=== PATIENT | female | born 1990 | race Caucasian/White ===

== ENCOUNTER 2018-01-29 16:19 | Outpatient (CLI) | payer MEDICARE, MEDICAID, SELFPAY ==
[2018-01-29 17:09] LABS: Abs Immature Grans 0.01 k/cumm (0.0-0.09); Absolute Basophil Count 0.05 k/cumm (0.0-0.2); Absolute Eosinophil Count 0.09 k/cumm (0.0-0.7); Absolute Lymphocyte Count 2.56 k/cumm (1.2-3.4); Absolute Monocyte Count 0.53 k/cumm (0.11-0.7); Absolute Neutrophil Count 3.92 k/cumm (1.2-6.7); Basophils % 0.7; Eosinophils % 1.3; HCT 42.1 % (36.0-46.0); HGB 14.5 g/dL (12.0-15.5); Immature Grans % 0.1; Lymphocytes % 35.8; Mean Corp. HGB Concentration 34.4 g/dL (32.0-36.0); Mean Corpuscular Hemoglobin 30.4 pg (27.0-33.0); Mean Corpuscular Volume 88.3 fL (80-95); Monocytes % 7.4; Neutrophils % 54.7; Platelet Count 424 x1000/uL (130-400); RBC 4.77 m/cumm (4.00-5.20); White Blood Cell Count 7.16 k/cumm (4.4-10.8)
[2018-01-29 17:50] LABS: Bilirubin Negative (Negative); Blood Negative (Negative); Clarity Clear; Glucose Negative (Negative); Ketones Trace mg/dL (Negative); Leukocyte Esterase Small (Negative); Nitrite Negative (Negative); Specific Gravity 1.025 (1.005-1.025); pH 6.5 (5-8)
[2018-01-29 18:11] LABS: Bacteria Moderate HPF (Negative); C & S Indicated? No/Sq. Contamination; Casts Negative LPF (Negative); Crystals Negative HPF (Negative); Epithelial Cells Moderate HPF (Negative); Mucus Moderate (Negative); RBC Negative (0-2)
[2018-01-29 18:19] LABS: ALT 16 U/L (12-78); AST 9 U/L (15-37); Albumin 3.4 g/dL (3.4-5.0); Alkaline Phosphatase 95 U/L (46-116); Anion Gap 9.6 mmol/L (3-11); BUN 7 mg/dL (7-18); Bilirubin, Total 0.2 mg/dL (0.2-1.0); CO2 25.4 mmol/L (21.0-32.0); CREATININE 0.68 mg/dL (0.55-1.02); Calcium 9.1 mg/dL (8.5-10.1); Chloride 102 mmol/L (98-107); Glucose 73 mg/dL (70-100); Sodium 137 mmol/L (136-145); Total Protein 6.8 g/dL (6.4-8.2)
[2018-01-29 18:45] LABS: Hemoglobin A1C 5.1 % (4.5-6.2)
== END 2018-01-29 16:39 ==
PROVIDERS: PCP Family Medicine; Visit Provider Internal Medicine Critical Care Medicine
DX: R63.4 Abnormal weight loss (principal); R73.03 Prediabetes
CPT/HCPCS: 36415; 80053; 81003; 81015; 83036; 85025

== ENCOUNTER 2018-02-10 06:51 | Emergency (ER) | payer MEDICARE, MEDICAID, SELFPAY ==
[2018-02-10 06:59] VITALS: BP 122/74; PULSE 125; RESP 18; TEMP 37; O2SAT 100
--- NOTE | 2018-02-10 07:15 | ED.GENADUL_ITS ---
Discharge Plan Disposition Patient Disposition: HOME Condition: Stable Discharge Details Chief Complaint: GenMedical Clinical Impression: Asthma, Influenza Primary Care Provider: Go Donahue ED Provider: Jairo Petersen Home Meds and New Rx's Prescriptions: New oseltamivir [Tamiflu] 75 mg capsule 75 mg PO BID 4 Days Qty: 8 RF: 0 levofloxacin [Levaquin] 500 mg tablet 500 mg PO DAILY Qty: 7 RF: 0 Continued cholecalciferol (vitamin D3) 1,000 unit tablet 1,000 unit PO DAILY Qty: 90 RF: 3 omeprazole 20 mg capsule,delayed release(DR/EC) 20 mg PO DAILY Qty: 90 RF: 3 promethazine 25 mg tablet 25 mg PO Q6H PRN (Reason: nausea and vomiting) Qty: 15 RF: 1 albuterol sulfate 3 ML solution for nebulization 3 ml UPD Q2H PRN PRNQty: 90 RF: 2 lidocaine 1 EACH adhesive patch,medicated 1 ea Topical DAILY RF: 0 Combivent Respimat 4 GM mist 2 puff Inhalation PRN RF: 0 Spiriva Respimat 4 GM mist 2 puff Inhalation Q12H PRN RF: 0 levalbuterol tartrate [Xopenex HFA] 15 GM HFA aerosol inhaler 2 - 4 puff Inhalation Q6H PRN Qty: 1 RF: 5 montelukast [Singulair] 10 MG tablet 10 mg PO DAILY Qty: 90 RF: 4 fluticasone 16 GM spray,suspension 1 spray NS BID Qty: 1 RF: 11 Nucala 100 MG recon soln 1 syringe SQ 28 days RF: 0 fluvoxamine 100 MG tablet 150 mg PO DAILY Qty: 135 RF: 3 Symbicort 10.2 GM HFA aerosol inhaler 2 puff Inhalation BID Qty: 3 RF: 4 Zyrtec 10 MG capsule 10 mg PO DAILY Qty: 90 RF: 4 ipratropium-albuterol [DuoNeb] 0.5 mg-3 mg(2.5 mg base)/3 mL solution for nebulization 3 ml Inhalation Q6H PRN Qty: 180 RF: 3 gabapentin 300 mg capsule 300 mg PO TID Qty: 90 RF: 5 zolpidem [Ambien] 10 mg tablet 10 mg PO HS PRN (Reason: insomnia) Qty: 30 RF: 2 buprenorphine-naloxone 1 EACH tablet, sublingual 12 mg Sublingual DAILY Qty: 0 RF: 0 acetaminophen [Tylenol] 325 MG tablet 650 mg PO Q4H PRN PRN (Reason: Pain, fever) RF: 0 prednisone 20 MG tablet 20 mg PO BID Qty: 60 RF: 0 Discontinued ciprofloxacin HCl 500 mg tablet 500 mg PO Q12H Qty: 14 RF: 0 Discharge Instructions Instructions: Influenza (ED) Additional Instructions: Home to rest today. Tylenol and/or ibuprofen as needed for aches, pains, fever. Continue your prescribed prednisone, prescribed inhalers, please complete the prescribed course of Tamiflu. Take Levaquin as prescribed, next dose tomorrow Return for difficulty breathing or any other acute concerns. Follow-up with Dr Donahue in clinic for recheck call for an appointment over the next 5-7 days. Discharge Data Discharge Date/Time-TO BE ENTERED AT DEPARTURE: 02/10/18 10:02 Medical Decision Making <Angelo Joseph MD - Last Filed: 02/10/18 23:11> 27 yo female with hx of asthma, prior drug abuse on suboxone and clearn for 6 years per pt, who comes in with chief complaint of n/v for 3 days, fevers and myalgias. Has coarse breath sounds on exam bilaterally but is speaking in full sentences. Has no abdominal distention or tenderness on exam. I suspect viral illness, will hydrate and check for electrolyte abnormalities and obtain chest xray since she states she surya a cough to eval for infiltrate. Will give neb and steroids as well for her coarse breath sounds. I placed an u/s guided IV in the left mid upper arm as nursing unable to place a line. Pt will be signed out to Dr. Petersen pending lab and xray results and ultimate disposition Differential Diagnosis asthma exacerbation, viral illness, influenza <Jairo Petersen MD - Last Filed: 02/10/18 10:45> Received signout from Dr. Joseph. Please see his note regarding details of the case. Patient was positive for influenza. Chest x-ray w question RML infiltrate. Tolerated Levaquin in the past, does not tolerate other antibiotics well. She is improved following medical therapy. CBC reassuring, comprehensive panel hemolyzed and patient declined repeat draw. She will continue prescribed steroids for bronchospasm. Tamiflu initiated. She understands homecare as well as return precautions. HPI <Angelo Joseph MD - Last Filed: 02/10/18 23:11> General Mode of arrival: ambulatory . Date/Time Provider Initiated Documentation: 02/10/18 06:54 . Limitations to Documentation: no limitations . Information obtained by: patient . History of Present Illness 27 year old F presents to the emergency department with the chief complaint of nausea and vomit, described as moderate, with intensity rated at 4. Patient reports no radiation. Patient started experiencing this day(s) (3) and it has been constant. No relieving factors improve symptom(s), No exacerbating factors reported . Patient did receive the following treatments prior to arrival, none Related Data Home Medications Medication Instructions Recorded Confirmed albuterol sulfate 3 ml UPD Q2H PRN PRN #90 vial 10/27/13 01/23/18 buprenorphine-naloxone 12 mg SUBLINGUAL DAILY #0 12/02/13 01/23/18 lidocaine 1 ea TOPICAL DAILY patch 12/07/15 01/23/18 Combivent Respimat 2 puff INHALATION PRN inhaler 06/20/16 01/23/18 Spiriva Respimat 2 puff INHALATION Q12H PRN 06/20/16 01/23/18 levalbuterol tartrate [Xopenex HFA] 2 - 4 puff INHALATION Q6H PRN #1 09/02/16 01/23/18 inhaler montelukast [Singulair] 10 mg PO DAILY #90 tab-cap 10/02/16 01/23/18 fluticasone 1 spray NS BID #1 bottle 11/01/16 01/23/18 acetaminophen [Tylenol] 650 mg PO Q4H PRN PRN tab 12/20/16 01/23/18 Nucala 1 syringe SQ 28 days vial 03/19/17 01/23/18 Symbicort 2 puff INHALATION BID #3 inhaler 03/19/17 01/23/18 fluvoxamine 150 mg PO DAILY #135 tab-cap 03/19/17 01/23/18 prednisone 20 mg PO BID #60 tab 05/10/17 01/23/18 Zyrtec 10 mg PO DAILY #90 cap 09/30/17 01/23/18 ipratropium-albuterol 0.5 mg-3 3 ml INHALATION Q6H PRN #180 ml 10/23/17 01/23/18 mg(2.5 mg base)/3 mL nebulization soln gabapentin 300 mg capsule 300 mg PO TID #90 tab-cap 01/06/18 01/23/18 zolpidem 10 mg tablet 10 mg PO HS PRN #30 tab-cap 01/12/18 01/23/18 cholecalciferol (vitamin D3) 1,000 1,000 unit PO DAILY #90 tab-cap 01/23/18 01/23/18 unit tablet omeprazole 20 mg capsule,delayed 20 mg PO DAILY #90 tab-cap 01/23/18 01/23/18 release promethazine 25 mg tablet 25 mg PO Q6H PRN #15 tab 01/23/18 01/23/18 levofloxacin [Levaquin] 500 mg PO DAILY #7 tab 02/10/18 oseltamivir [Tamiflu] 75 mg PO BID 4 Days #8 cap 02/10/18 Previous Rx's Medication Instructions Recorded buprenorphine-naloxone 12 mg SUBLINGUAL DAILY #0 12/02/13 fluticasone 1 spray NS BID #1 bottle 11/01/16 acetaminophen [Tylenol] 650 mg PO Q4H PRN PRN tab 12/20/16 Symbicort 2 puff INHALATION BID #3 inhaler 03/19/17 fluvoxamine 150 mg PO DAILY #135 tab-cap 03/19/17 prednisone 20 mg PO BID #60 tab 05/10/17 Zyrtec 10 mg PO DAILY #90 cap 09/30/17 ipratropium-albuterol 0.5 mg-3 3 ml INHALATION Q6H PRN #180 ml 10/23/17 mg(2.5 mg base)/3 mL nebulization soln gabapentin 300 mg capsule 300 mg PO TID #90 tab-cap 01/06/18 zolpidem 10 mg tablet 10 mg PO HS PRN #30 tab-cap 01/12/18 cholecalciferol (vitamin D3) 1,000 1,000 unit PO DAILY #90 tab-cap 01/23/18 unit tablet omeprazole 20 mg capsule,delayed 20 mg PO DAILY #90 tab-cap 01/23/18 release promethazine 25 mg tablet 25 mg PO Q6H PRN #15 tab 01/23/18 levofloxacin [Levaquin] 500 mg PO DAILY #7 tab 02/10/18 oseltamivir [Tamiflu] 75 mg PO BID 4 Days #8 cap 02/10/18 Allergies Allergy/AdvReac Type Severity Reaction Status Date / Time ibuprofen [From Advil] Allergy Mild ADVIL ONLY Verified 01/23/18 11:14 SKIN RASH amoxicillin Allergy Verified 01/23/18 11:14 diphenhydramine Allergy Hives Verified 01/23/18 11:14 erythromycin base Allergy SKIN RASH Verified 01/23/18 11:14 metronidazole [From Flagyl] Allergy SKIN RASH Verified 01/23/18 11:14 Metronidazole HCl Allergy SKIN RASH Verified 01/23/18 11:14 [From Flagyl] penicillin V [Penicillin V] Allergy Verified 01/23/18 11:14 Sulfa (Sulfonamide Allergy Hives Verified 01/23/18 11:14 Antibiotics) General Stated Complaint: GenMedical BART: 3 Review of Systems <Angelo Joseph MD - Last Filed: 02/10/18 23:11> Review of Systems All systems reviewed & are unremarkable except as noted in HPI and below Constitutional Denies chills Eyes Denies loss of vision ENT Denies change in voice Cardiovascular Denies chest pain Gastrointestinal Denies nausea and Denies vomiting Genitourinary Denies dysuria Musculoskeletal Denies joint swelling Neurologic Denies loss of vision Endocrine Denies cold intolerance PFSH <Angelo Joseph MD - Last Filed: 02/10/18 23:11> Surgical History Endometrial Biopsy Family History Father Hyperlipidemia Social History Smoking/Tobacco Use Status: Former Tobacco Use Exam <Angelo Joseph MD - Last Filed: 02/10/18 23:11> Const General: no acute distress Orientation: alert HENCA Head: normal to inspection Ears: external ears normal General nose exam: external nose normal Mouth: moist mucous membranes Eyes General: appearance normal, both eyes and all related structures Neck Neck: normal visual inspection Resp Effort & Inspection: normal respiratory effort and able to speak in complete se ntences Cardio Rate: regular rate Skin General skin exam: no rashes or lesions noted Neuro General: alert and oriented x3 Extrem General: normal to inspection Psych Mental Status: mental status grossly normal Course <Angelo Joseph MD - Last Filed: 02/10/18 23:11> Vital Signs Temperature 37.0 C 02/10/18 06:59 Pulse 125 H 02/10/18 06:59 Respiratory Rate 18 02/10/18 06:59 Blood Pressure 122/74 02/10/18 06:59 Pulse Oximetry 100 02/10/18 06:59 Temperature 37.0 C 02/10/18 06:59 Temperature Source Oral 02/10/18 06:59 Pulse 125 H 02/10/18 06:59 Respiratory Rate 18 02/10/18 06:59 Respiratory Effort 02/10/18 07:02 Blood Pressure 122/74 02/10/18 06:59 Blood Pressure Position Sitting 02/10/18 06:59 Pulse Oximetry 100 02/10/18 06:59 Oxygen Delivery Method Room Air 02/10/18 06:59 Oxygen Flow Rate 0 02/10/18 06:59 Pain Level 7 02/10/18 06:59 Sign Out <Angelo Joseph MD - Last Filed: 02/10/18 23:11> Sign Out Data: Sign Out Comment: follow up on lab and xray results, and reassess lung exam. Last updated by Angelo Joseph MD at 02/10/18 07:42
[2018-02-10] MEDS: Albuterol/Ipratropium 3 ML UPD VIAL UPD (07:18)
[2018-02-10 07:30] VITALS: RESP 16
--- NOTE | 2018-02-10 07:46 | NUR.NOTE ---
Nursing Note: This RN attempted IV access X1, unsuccessfully. MD Joseph at bedside, pt. can be heard yelling and swearing at doctor, Don't fucking do that, you're hurting me, I told you not to do that
[2018-02-10] MEDS: Normal Saline 1,000 ML 1000 ML IV (07:50)
[2018-02-10] MEDS: Ondansetron 4 MG/2 ML VIAL IM (07:50)
[2018-02-10] MEDS: methylPREDNISolone SUCC 125 MG VIAL IVP (07:50)
[2018-02-10 08:03] LABS: Abs Immature Grans 0.01 k/cumm (0.0-0.09); Absolute Basophil Count 0.02 k/cumm (0.0-0.2); Absolute Lymphocyte Count 0.81 k/cumm (1.2-3.4); Absolute Neutrophil Count 4.49 k/cumm (1.2-6.7); Basophils % 0.3; HCT 45.3 % (36.0-46.0); HGB 15.9 g/dL (12.0-15.5); Immature Grans % 0.2; Lymphocytes % 13.7; Mean Corp. HGB Concentration 35.1 g/dL (32.0-36.0); Mean Corpuscular Hemoglobin 30.9 pg (27.0-33.0); Mean Platelet Volume 9.7 fL (8.0-11.0); Monocytes % 10.1; Neutrophils % 75.7; Platelet Count 259 x1000/uL (130-400); RBC 5.15 m/cumm (4.00-5.20); RBC Distribution Width 14.1 % (11.7-14.6); White Blood Cell Count 5.93 k/cumm (4.4-10.8)
[2018-02-10] MEDS: Oseltamivir 75 MG CAP PO ×2 (08:16→09:19)
--- NOTE | 2018-02-10 08:25 | DI.RAD_ITS ---
SYMPTOM/DIAGNOSIS: COUGH PA AND LATERAL CHEST: Comparison is made with 05/08/17. The heart size is normal. There are streaky densities again seen in the region of the right middle lobe and lingula which do not appear significantly changed from 06/21/16. IMPRESSION: Probable right middle lobe and lingular scarring.
--- NOTE | 2018-02-10 09:21 | DI.VRAD_ITS ---
EXAM: XR Chest, 2 Views EXAM DATE/TIME: 02/10/2018 8:18 AM CLINICAL HISTORY: 27 years old, female; Signs and symptoms; Cough; Patient HX: Cough. Pos flu TECHNIQUE: XR of the chest, 2 views. COMPARISON: CR PORTABLE CHEST ONE VIEW 05/08/2017 7:14 AM FINDINGS: 2 views of the right chest demonstrate increased opacity in the right middle lobe distribution concerning for pneumonia. Cardiac silhouette nonenlarged. No pneumothorax. Bowel gas pattern unremarkable. Bones unremarkable. IMPRESSION: Findings concerning for right middle lobe pneumonia. Dictated and Authenticated by: Gerardo Hermosillo MD. Ordering:RENEE Stephens MD
[2018-02-10 10:17] VITALS: BP 120/76; PULSE 104; RESP 18; TEMP 37.4; O2SAT 99
== END 2018-02-10 10:02 | disposition home or self-care (01) ==
PROVIDERS: Emergency Medicine; Emergency Provider Emergency Medicine; PCP Family Medicine
DX: J10.2 Influenza due to other identified influenza virus with gastrointestinal manifestations (principal); J45.909 Unspecified asthma, uncomplicated; F11.20 Opioid dependence, uncomplicated
CPT/HCPCS: 36415; 80053; 80076; 81025; 83690; 87449; 94640; 96361; 96372; 96374; 99284; 71046; 84484; 85025; J2405; J2930; J7620

== ENCOUNTER 2018-04-03 13:11 | Outpatient (REF) | payer MEDICARE, MEDICAID, SELFPAY | END 2018-04-03 13:31 | LOC: LBN 13:11 | PROVIDERS: PCP Family Medicine; Visit Provider Family Medicine | DX: R10.30 Lower abdominal pain, unspecified (principal) | CPT/HCPCS: 87086 ==

== ENCOUNTER 2018-04-08 00:22 | Outpatient (CLI) | payer MEDICARE, MEDICAID, SELFPAY ==
[2018-04-08 08:33] LABS: Bilirubin Negative (Negative); Blood Negative (Negative); Clarity Clear; Glucose Negative (Negative); Ketones Negative (Negative); Leukocyte Esterase Small (Negative); Nitrite Negative (Negative); Specific Gravity 1.015 (1.005-1.025); Urobilinogen 0.2 EU/dL (Up TO 0.2)
[2018-04-08] MEDS: Breeza Beverage 473 ML BTL PO ×3 (08:36→08:38)
[2018-04-08] MEDS: Omnipaque 350 MG/ML 50 ML BTL IJ (08:37)
[2018-04-08 09:29] LABS: Bacteria Few HPF (Negative); C & S Indicated? Yes; Casts Negative LPF (Negative); Crystals Negative HPF (Negative); Epithelial Cells Few HPF (Negative); Mucus Trace (Negative); RBC Negative (0-2); WBC 0-2 HPF (0-5)
--- NOTE | 2018-04-08 09:58 | DI.CT_ITS ---
SYMPTOM/DIAGNOSIS: LLQ LOW ABD PAIN ABDOMEN AND PELVIC CT: CT scan of the abdomen and pelvis was performed following the uneventful administration of intravenous and oral contrast material. Findings: There is an single intrauterine present. The fetus appears to be somewhere between the second and third trimester. The placenta appears anterior and to the right. The liver is normal in size. No suspicious hepatic masses are seen. The portal, superior mesenteric and splenic veins are patent. The gallbladder is negative. No biliary ductal dilatation is seen. The pancreas, spleen and adrenal glands are unremarkable. The kidneys show normal and symmetric enhancement. No evidence of obstruction is seen. The urinary bladder is intact. The bowel shows no evidence of obstruction or inflammation. There is a normal appendix present. No significant abdominal or pelvic adenopathy, ascites or pneumoperitoneum is present. The left ovary appears grossly unremarkable. The right ovary is not well visualized. The aorta is of normal caliber. The lumbar spine is normally mineralized and intact. IMPRESSION: 1. Rojas intrauterine gestation. The fetus appears to be in the second to third trimester. The patient was told of the on the date of the examination and was unaware. The findings were called to Leah Kee at [facility] on the date of the examination. 2. No evidence of an acute abdomen. 3. OB ultrasound should be considered for and placental evaluation.
== END 2018-04-08 00:42 ==
PROVIDERS: PCP Family Medicine; Visit Provider Family Medicine
DX: R10.32 Left lower quadrant pain (principal); Z33.1 Pregnant state, incidental
CPT/HCPCS: 74177; 81003; 81015; 87086; Q9967

== ENCOUNTER 2018-04-13 01:28 | Outpatient (CLI) | payer MEDICARE, MEDICAID, SELFPAY ==
--- NOTE | 2018-04-13 11:24 | DI.US_ITS ---
Many abnormalities cannot be diagnosed. A normal exam does not exclude a congenital anomaly. Radiology No. LMP: ? Exam Date: 04/13/18 [facility] wks days on EDC ([facility]) UNKNOWN Confirmed: HISTORY: SURVEY,Z34.90 PREDICTED GESTATIONAL AGE NUMBER ? weeks with a range of week to weeks. 1 Determined by___1STUS___LMP___HISTORY Info. pertaining to fetus # PLACENTA PRESENTATION Grade I Cephalic___X Anterior_X__Posterior___ Breech____ Right Left Transverse(head right___ Fundal___Low-lying___Previa___ Transverse(head left___ Varying BIOMETRY AMNIOTIC FLUID BPD: 42 mm 18.4 weeks Normal HC: 158 mm 18.5 weeks AC: 129 mm 18.3 weeks FL: 27 mm 18.3 weeks AMNIOTIC FLUID INDEX >26 WK CRL: mm weeks Cisterna Magna: 3.6 mm CI: 77 RUQ: LUQ Cerebellum: 1.86 cm EFW: grams Percentile RLQ: LLQ Total: cms Composite AGE= 18.4 wks EDC by US____09/10/2018 BIOPHYSICAL PROFILE ANATOMY IDENTIFIED SCORE 0/2 Heart: 4-Chamber_X__Rate:BPM__160___ LVOT: X____ RVOT:___X Amniotic Fluid(>2cms)____ Stomach: X__ Kidneys:___X____ Respirations (>30 secs) Bladder: X__ Post. Fossa:____X Body Flex/Extension 3 vessel cord:___X____Ventricles:____X cord insertion:___X__ Lips:___X_ Extremity Flex/Extension spinal morphology:___X Nose:X Total Score= Palate:___X____ NS=not seen The fetus is in cephalic position. The placenta is anterior and is 2.1 cm. from the maternal os. The biometric measurements correspond to 18 weeks 4 days and an EDC of 09/10/18. The amniotic fluid appears visually normal. There is a question of a sandal gap deformity on the right foot on image #85. This was not reproducible later on in the exam and could have represented transient finding. A sandal gap deformity of the foot could be associated with down's syndrome or could be a normal variant. No additional abnormalities are seen. IMPRESSION: Gestational age of 18 weeks 4 days. Question of a sandal gap deformity.
== END 2018-04-13 01:48 ==
PROVIDERS: PCP Family Medicine; Visit Provider Obstetrics & Gynecology Gynecology
DX: Z34.92 Encounter for supervision of normal pregnancy, unspecified, second trimester (principal); O28.3 Abnormal ultrasonic finding on antenatal screening of mother
CPT/HCPCS: 76805

== ENCOUNTER 2018-04-23 16:22 | Outpatient (REF) | payer MEDICARE, MEDICAID, SELFPAY ==
[2018-04-23 19:25] LABS: *AMPHETAMINES SCREEN URINE Negative (Negative); *BARBITURATES SCREEN URINE Negative (Negative); *BENZODIAZEPINES SCREEN URINE Negative (Negative); Cannabinoids THC Negative (Negative); Cocaine Screen,Urine POSITIVE (Negative); METHADONE URINE SCREEN Negative (Negative); OPIATES URINE SCREEN Negative (Negative)
[2018-04-23 19:43] LABS: Tricyclic Antidepressants Negative (Negative)
[2018-04-26 04:22] LABS: Buprenorphine 361.3 ng/mL
== END 2018-04-23 16:42 ==
LOC: LBN 16:22
PROVIDERS: PCP Family Medicine; Visit Provider Obstetrics & Gynecology Gynecology
DX: F19.90 Other psychoactive substance use, unspecified, uncomplicated (principal)
CPT/HCPCS: 80307

== ENCOUNTER 2018-04-24 14:53 | Outpatient (CLI) | payer MEDICARE, MEDICAID, SELFPAY ==
[2018-04-24 15:25] LABS: Abs Immature Grans 0.02 k/cumm (0.0-0.09); Absolute Basophil Count 0.02 k/cumm (0.0-0.2); Absolute Eosinophil Count 0.09 k/cumm (0.0-0.7); Absolute Lymphocyte Count 2.35 k/cumm (1.2-3.4); Absolute Monocyte Count 0.56 k/cumm (0.11-0.7); Absolute Neutrophil Count 5.23 k/cumm (1.2-6.7); Basophils % 0.2; Eosinophils % 1.1; Immature Grans % 0.2; Lymphocytes % 28.4; Mean Corp. HGB Concentration 34.2 g/dL (32.0-36.0); Mean Corpuscular Hemoglobin 31.9 pg (27.0-33.0); Mean Corpuscular Volume 93.1 fL (80-95); Mean Platelet Volume 8.7 fL (8.0-11.0); Monocytes % 6.8; Neutrophils % 63.3; Platelet Count 354 x1000/uL (130-400); RBC 4.08 m/cumm (4.00-5.20); RBC Distribution Width 14.3 % (11.7-14.6); White Blood Cell Count 8.27 k/cumm (4.4-10.8)
[2018-04-24 16:22] LABS: TSH (W/Ref FT4) 5.46 uIU/mL (0.358-3.74)
[2018-04-24 19:05] LABS: FREE T4 1.02 ng/dL (0.76-1.46)
[2018-04-25 10:39] LABS: HIV-1/2 Ag & Ab Screen Negative (NEGAT)
[2018-04-27 09:40] LABS: Hepatitis B Surface Ag Negative (NEGAT)
[2018-04-27 09:46] LABS: Hepatitis C Ab w Rflx HCV PCR Negative (NEGAT)
[2018-04-27 12:34] LABS: Rubella IgG Ab (UVM) Positive
[2018-04-27 12:48] LABS: Syphilis Serology (RPR) Negative (Negative); Varicella IgG Antibody Positive
[2018-04-27 12:53] LABS: Calculated age at EDD 30 years; Cigarette smoking status non-smoker; GA used in risk estimate Scan estimate; INHIBIN 186 pg/mL; IVF Pregnancy No; Initial or repeat testing Initial testing; Insulin dependent diabetes No; Maternal Weight 132 lbs; Number of Fetuses 1; Physician Phone Number 802-748-7300; Prev Down(T21)/Trisomy Pregnan No; Prev Pregnancy w/NTD No; RECOMMENDED FOLLOW UP None.; Results Summary Normal risk; hCG, TOTAL 11.5 IU/mL; hCG, TOTAL MoM 0.48 MoM; uE3 1.38 ng/mL; uE3 MoM 0.92 MoM
[2018-05-01 02:54] LABS: Result Summary NEGATIVE; Specimen WB Whole Blood
== END 2018-04-24 15:13 ==
PROVIDERS: PCP Family Medicine; Visit Provider Obstetrics & Gynecology Gynecology
DX: Z34.92 Encounter for supervision of normal pregnancy, unspecified, second trimester (principal); F32.9 Major depressive disorder, single episode, unspecified; Z36.89 Encounter for other specified antenatal screening; Z01.84 Encounter for antibody response examination; Z11.59 Encounter for screening for other viral diseases; Z11.4 Encounter for screening for human immunodeficiency virus [HIV]
CPT/HCPCS: 36415; 80055; 81511; 86787; 86803; 86850; 86900; 86901; 87340; 87389; 81220; 84439; 84443; 86592; 86762

== ENCOUNTER 2018-05-11 13:27 | Outpatient (CLI) | payer MEDICARE, MEDICAID, SELFPAY ==
[2018-05-11 15:17] LABS: *AMPHETAMINES SCREEN URINE Negative (Negative); *BARBITURATES SCREEN URINE Negative (Negative); *BENZODIAZEPINES SCREEN URINE Negative (Negative); Cannabinoids THC Negative (Negative); Cocaine Screen,Urine Negative (Negative); METHADONE URINE SCREEN Negative (Negative); OPIATES URINE SCREEN Negative (Negative)
[2018-05-11 15:18] LABS: Tricyclic Antidepressants Negative (Negative)
[2018-05-11 15:26] LABS: ALT 12 U/L (12-78); AST 10 U/L (15-37); Albumin 2.8 g/dL (3.4-5.0); Alkaline Phosphatase 88 U/L (46-116); Anion Gap 12.4 mmol/L (3-11); BUN 6 mg/dL (7-18); Bilirubin, Total 0.2 mg/dL (0.2-1.0); CO2 22.6 mmol/L (21.0-32.0); Calcium 8.6 mg/dL (8.5-10.1); Chloride 101 mmol/L (98-107); Glucose 64 mg/dL (70-100); Potassium 3.7 mmol/L (3.5-5.1); Sodium 136 mmol/L (136-145); TSH (W/Ref FT4) 1.07 uIU/mL (0.358-3.74); Total Protein 6.2 g/dL (6.4-8.2)
[2018-05-12 11:32] LABS: Hepatitis C Ab w Rflx HCV PCR Negative (NEGAT)
[2018-05-12 12:29] LABS: Rubella IgG Ab (UVM) Positive; Syphilis Serology (RPR) Negative (Negative); Varicella IgG Antibody Positive
[2018-05-12 12:51] LABS: Hepatitis B Surface Ag Negative (NEGAT)
[2018-05-12 13:08] LABS: HIV-1/2 Ag & Ab Screen Negative (NEGAT)
== END 2018-05-11 13:47 ==
PROVIDERS: PCP Family Medicine; Visit Provider Obstetrics & Gynecology Gynecology
DX: Z34.90 Encounter for supervision of normal pregnancy, unspecified, unspecified trimester (principal)
CPT/HCPCS: 36415; 80053; 80307; 86787; 86803; 87340; 87389; 84443; 86592; 86762

== ENCOUNTER 2018-05-11 14:04 | Outpatient (REF) | payer MEDICARE, MEDICAID, SELFPAY ==
--- NOTE | 2018-05-11 13:20 | PAPFT_PTH ---
PATIENT: Rosy Mena LOC: [facility] [place] U#:[id number] AGE/SX: 28/F ROOM: RE05/11/[address]: Antoinette Dyson : 1990 BED: DIS: 05/11/2018 SPEC #: [id number] RECD: 05/11/18 18:08 STATUS: IAM REeWndy #: [id number] PEARL: 05/11/18 13:[address]: Antoinette Dyson DEPT: [facility] Cytology RECD BY: Melia Singh ENTERED: 05/11/18 18:09 SP TYPE: PAPFT OTHR DR: oG Donahue MD Tissues: 1 - CX/ENDOCX FOR PAP SMEARS Procedures: PAP THIN PREP/UVM Screening HPV DNA PROBE Comments: [id number]
[2018-05-13 14:10] LABS: Chlamydia Result Negative; GC Result Negative; Specimen Description CERVIX
== END 2018-05-11 14:24 ==
LOC: LBN 14:04
PROVIDERS: PCP Family Medicine; Visit Provider Obstetrics & Gynecology Gynecology
DX: Z34.91 Encounter for supervision of normal pregnancy, unspecified, first trimester (principal); Z12.4 Encounter for screening for malignant neoplasm of cervix; Z11.3 Encounter for screening for infections with a predominantly sexual mode of transmission; Z11.51 Encounter for screening for human papillomavirus (HPV)
CPT/HCPCS: 87491; 87591; 88142; 87086; 87624

== ENCOUNTER 2018-06-05 10:27 | Outpatient (REF) | payer MEDICARE, MEDICAID, SELFPAY ==
[2018-06-05 12:29] LABS: PROTEIN 36.6 mg/dL
[2018-06-05 12:31] LABS: Prot/Crea Ur Ratio 0.09
== END 2018-06-05 10:47 ==
LOC: LBN 10:27
PROVIDERS: PCP Family Medicine; Visit Provider Naturopath
DX: J45.909 Unspecified asthma, uncomplicated (principal); O09.93 Supervision of high risk pregnancy, unspecified, third trimester; O26.839 Pregnancy related renal disease, unspecified trimester
CPT/HCPCS: 82565; 84156; 87070; 87205

== ENCOUNTER 2018-08-21 10:35 | Outpatient (CLI) | payer MEDICARE, MEDICAID, SELFPAY | END 2018-08-21 10:55 | DX: Z34.93 Encounter for supervision of normal pregnancy, unspecified, third trimester (principal); Z3A.37 37 weeks gestation of pregnancy | CPT/HCPCS: 59025 ==

== ENCOUNTER 2019-02-02 09:28 | Outpatient (CLI) | payer MEDICARE, MEDICAID, SELFPAY ==
[2019-02-02 13:20] LABS: ALT 18 U/L (14-59); AST 18 U/L (15-37); Albumin 3.8 g/dL (3.4-5.0); Alkaline Phosphatase 105 U/L (46-116); Bilirubin, Direct 0.05 mg/dL (0.00-0.20); Bilirubin, Total 0.2 mg/dL (0.2-1.0); Total Protein 7.1 g/dL (6.4-8.2)
== END 2019-02-02 09:48 ==
PROVIDERS: PCP Family Medicine; Visit Provider Family Medicine
DX: E03.9 Hypothyroidism, unspecified (principal); L29.9 Pruritus, unspecified
CPT/HCPCS: 36415; 80076; 84443

== ENCOUNTER 2019-04-09 08:43 | Outpatient (CLI) | payer MEDICARE, MEDICAID, SELFPAY ==
[2019-04-09 09:20] LABS: Abs Immature Grans 0.01 k/cumm (0.0-0.09); Absolute Basophil Count 0.08 k/cumm (0.0-0.2); Absolute Eosinophil Count 0.06 k/cumm (0.0-0.7); Absolute Lymphocyte Count 1.74 k/cumm (1.2-3.4); Absolute Monocyte Count 0.49 k/cumm (0.11-0.7); Absolute Neutrophil Count 3.07 k/cumm (1.2-6.7); Basophils % 1.5; Eosinophils % 1.1; HCT 36.8 % (36.0-46.0); HGB 11.7 g/dL (12.0-15.5); Immature Grans % 0.2 %; Lymphocytes % 31.9; Mean Corp. HGB Concentration 31.8 g/dL (32.0-36.0); Mean Corpuscular Hemoglobin 27.3 pg (27.0-33.0); Mean Corpuscular Volume 85.8 fL (80-95); Mean Platelet Volume 8.8 fL (8.0-11.0); Neutrophils % 56.3; Platelet Count 391 x1000/uL (130-400); RBC 4.29 m/cumm (4.00-5.20); RBC Distribution Width 16.9 % (11.7-14.6); White Blood Cell Count 5.45 k/cumm (4.4-10.8)
[2019-04-12 11:09] LABS: IgE 277 IU/mL (<158)
== END 2019-04-09 09:03 ==
PROVIDERS: PCP Family Medicine; Visit Provider Student in an Organized Health Care Education/Training Program
DX: J82 Pulmonary eosinophilia, not elsewhere classified (principal)
CPT/HCPCS: 36415; 82785; 85025

== ENCOUNTER 2019-05-28 01:25 | Outpatient (CLI) | payer MEDICARE, MEDICAID, SELFPAY ==
[2019-05-28 08:12] LABS: HCT 38.4 % (36.0-46.0); HGB 12.2 g/dL (12.0-15.5); Mean Corp. HGB Concentration 31.8 g/dL (32.0-36.0); Mean Corpuscular Hemoglobin 27.2 pg (27.0-33.0); Mean Corpuscular Volume 85.7 fL (80-95); Platelet Count 412 x1000/uL (130-400); RBC 4.48 m/cumm (4.00-5.20); White Blood Cell Count 6.28 k/cumm (4.4-10.8)
[2019-05-28 08:18] LABS: Creatinine,Urine 273.95 mg/dL
[2019-05-28 08:21] LABS: COMMENT (LAB VIEW ONLY) 267.33 mg/dL; Microalb ug/mg Crea 5.2 ug/mg Cr
[2019-05-28 08:51] LABS: Albumin 3.8 g/dL (3.4-5.0); BUN 19 mg/dL (7-18); CREATININE 1.04 mg/dL (0.55-1.02); Chloride 105 mmol/L (98-107); PHOSPHORUS 3.8 mg/dL (2.6-4.7); Potassium 4.9 mmol/L (3.5-5.1); Sodium 141 mmol/L (136-145)
== END 2019-05-28 01:45 ==
PROVIDERS: PCP Family Medicine; Visit Provider Internal Medicine Nephrology
DX: N03.8 Chronic nephritic syndrome with other morphologic changes (principal); O26.833 Pregnancy related renal disease, third trimester
CPT/HCPCS: 36415; 80051; 82042; 84520; 85027; 82040; 82043; 82310; 82565; 82570; 84100

== ENCOUNTER 2019-05-31 09:53 | Emergency (ER) | payer MEDICARE, MEDICAID, SELFPAY ==
[2019-05-31 10:01] VITALS: BP 122/82; PULSE 70; TEMP 36.8; O2SAT 95
--- NOTE | 2019-05-31 10:15 | DI.CT_ITS ---
EXAM: CT ABDOMEN PELVIS W CLINICAL HISTORY: Abdominal wall hernia/abdominal pain TECHNIQUE: CT examination of the abdomen and pelvis was performed with bolus infusion of 80 cc of Om nipaque 350. COMPARISON: CT ABDOMEN PELVIS W from 04/08/2018 FINDINGS: Images obtained through the lung bases are unremarkable. Liver and spleen are normal in appearance, as is the pancreas. Gallbladder and bile ducts are CT normal. Adrenals and kidneys appear normal. No urinary tract calcification or obstruction. Pool Lifeguard structures appear intact. There is marked constipation with a large quantity of fecal material throughout the colon. Appendix is normal. No evidence of bowel obstruction. Abdominal aorta is of normal diameter and no major vascular abnormality is seen. No abdominal or pel adrian adenopathy seen. Patient reportedly has question of abdominal wall hernia associated with the umbilicus. There is an approximately 15 by 18 by 15 millimeter in diameter focus of soft tissue attenuation associated with the umbilicus which was not present on a prior abdominal CT of 04/08/2018. There is some linear high density material within this, question suture material. Mild soft tissue edema is present at this s ite as well. No significant abdominal wall hernia seen apart from a tiny fat containing umbilical hernia. IMPRESSION: There appears to be a periumbilical finding which may represent small subcutaneous abscess, this may questionably contain suture material or other foreign material. Apart from a tiny fat containing umb ilical hernia, no significant abdominal wall hernia is seen.
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
[2019-05-31 10:51] LABS: Bilirubin Negative (Negative); Blood Negative (Negative); Clarity Clear (Clear); Glucose Negative (Negative); Ketones Negative (Negative); Leukocyte Esterase Negative (Negative); Nitrite Negative (Negative); Specific Gravity >= 1.030 (1.005-1.025); Urobilinogen 0.2 EU/dL (Up TO 0.2); pH 6.5 (5-8)
[2019-05-31] MEDS: MORPHine 10 MG/ML VIAL 2 MG IVP (10:51)
[2019-05-31] MEDS: Ondansetron 4 MG/2 ML VIAL IVP (10:52)
[2019-05-31] MEDS: Normal Saline Flush 10 ML SYR IVP (10:52)
[2019-05-31] MEDS: Omnipaque 350 MG/ML 100 ML BTL IV (11:14)
[2019-05-31 11:22] LABS: Abs Immature Grans 0.01 k/cumm (0.0-0.09); Absolute Basophil Count 0.06 k/cumm (0.0-0.2); Absolute Eosinophil Count 0.06 k/cumm (0.0-0.7); Absolute Lymphocyte Count 2.39 k/cumm (1.2-3.4); Absolute Neutrophil Count 3.27 k/cumm (1.2-6.7); HGB 11.9 g/dL (12.0-15.5); Immature Grans % 0.2 %; Mean Corp. HGB Concentration 32.2 g/dL (32.0-36.0); Mean Corpuscular Hemoglobin 27.6 pg (27.0-33.0); Mean Corpuscular Volume 85.8 fL (80-95); Mean Platelet Volume 9.2 fL (8.0-11.0); Monocytes % 7.9; Neutrophils % 51.9; Platelet Count 422 x1000/uL (130-400); RBC 4.31 m/cumm (4.00-5.20); RBC Distribution Width 15.5 % (11.7-14.6); White Blood Cell Count 6.29 k/cumm (4.4-10.8)
[2019-05-31] MEDS: Normal Saline - Diluent 50 ML VIAL IV (11:24)
[2019-05-31 11:37] VITALS: BP 128/84; PULSE 80; O2SAT 97
[2019-05-31 11:38] LABS: ALT 22 U/L (14-59); AST 12 U/L (15-37); Albumin 3.7 g/dL (3.4-5.0); Alkaline Phosphatase 82 U/L (46-116); Anion Gap 6.5 mmol/L (3-11); BUN 20 mg/dL (7-18); Bilirubin, Total 0.2 mg/dL (0.2-1.0); CO2 28.5 mmol/L (21.0-32.0); CREATININE 0.95 mg/dL (0.55-1.02); Calcium 8.7 mg/dL (8.5-10.1); Chloride 104 mmol/L (98-107); Glucose 73 mg/dL (74-106); Sodium 139 mmol/L (136-145); Total Protein 7.1 g/dL (6.4-8.2)
[2019-05-31 12:20] VITALS: BP 127/72; PULSE 86; TEMP 36.8; O2SAT 97
== END 2019-05-31 12:30 | disposition home or self-care (01) ==
PROVIDERS: Emergency Provider Registered Nurse Emergency; PCP Family Medicine
DX: K42.9 Umbilical hernia without obstruction or gangrene (principal); K59.00 Constipation, unspecified
CPT/HCPCS: 80053; 81025; 96374; 96375; 96376; 99285; 74177; 81003; 85025; J2270; J2405; J3490

== ENCOUNTER → 2019-06-01 10:29 | Outpatient (BNVA) | payer MEDICARE, MEDICAID, SELFPAY | PROVIDERS: PCP Family Medicine; Referring Provider Family Medicine; Visit Provider Surgery | DX: R10.33 Periumbilical pain (principal) | CPT/HCPCS: 99202; 99213 ==

== ENCOUNTER → 2019-06-14 13:16 | Outpatient (BNVA) | payer MEDICARE, MEDICAID, SELFPAY | PROVIDERS: PCP Family Medicine; Referring Provider Family Medicine; Visit Provider Surgery | DX: K42.9 Umbilical hernia without obstruction or gangrene (principal); Z01.818 Encounter for other preprocedural examination ==

== ENCOUNTER 2019-06-14 13:59 | Outpatient (CLI) | payer MEDICARE, MEDICAID, SELFPAY ==
[2019-06-15 18:39] LABS: COVID-19 RT-PCR UVMMC Result Negative (Negative)
== END 2019-06-14 14:19 ==
PROVIDERS: PCP Family Medicine; Visit Provider Surgery
DX: Z11.59 Encounter for screening for other viral diseases (principal); Z01.818 Encounter for other preprocedural examination
CPT/HCPCS: 99214; U0003

== ENCOUNTER 2019-06-17 08:21 | Day surgery (SDC) | payer MEDICARE, MEDICAID, SELFPAY ==
[2019-06-17] VITALS (8 sets, daily range): BP systolic 100–125; BP diastolic 70–91; PULSE 67–93; RESP 13–18; TEMP 36.2–36.6; O2SAT 95–100
[2019-06-17] MEDS: Lactated Ringers 1,000 ML 80 ML IV (09:12)
--- NOTE | 2019-06-17 09:22 | W.PM.DSUDISC ---
Discharge Plan Disposition Patient Disposition: HOME Condition: Good Discharge Details Reason For Visit: UMBILICAL HERNIA REPAIR Attending Provider: Viv North Primary Care Provider: Go Donahue Home Meds and New Rx's Prescriptions: Continued prednisone 10 mg tablet 10 mg PO DAILY RF: 0 zolpidem [Ambien CR] 12.5 mg tablet,ext release multiphase 12.5 mg PO QHS RF: 0 fluvoxamine 100 mg tablet 200 mg PO QHS RF: 0 loratadine [Claritin] 10 mg tablet 10 mg PO DAILY Qty: 90 RF: 3 cholecalciferol (vitamin D3) 25 mcg (1,000 unit) tablet 1,000 unit PO DAILY Qty: 90 RF: 3 levothyroxine [Levoxyl] 75 mcg tablet 75 mcg PO DAILY Qty: 60 RF: 5 omeprazole 20 mg capsule,delayed release(DR/EC) 20 mg PO DAILY Qty: 90 RF: 3 promethazine 25 mg tablet 25 mg PO Q6H PRN (Reason: nausea and vomiting) Qty: 15 RF: 1 hydromorphone [Dilaudid] 2 mg tablet 2 mg PO Q6H MDD 4 PRN (Reason: pain) Qty: 15 RF: 0 ondansetron HCl 4 mg tablet 4 mg PO QID PRN (Reason: nausea and vomiting) Qty: 20 RF: 0 Viibryd 40 mg tablet 40 mg PO DAILY RF: 0 albuterol sulfate 3 ML solution for nebulization 3 ml UPD Q2H PRN PRNQty: 90 RF: 2 lidocaine 1 EACH adhesive patch,medicated 1 ea Topical DAILY PRNRF: 0 Combivent Respimat 4 GM mist 2 puff Inhalation PRN RF: 0 Spiriva Respimat 4 GM mist 2 puff Inhalation Q12H PRN RF: 0 levalbuterol tartrate [Xopenex HFA] 15 GM HFA aerosol inhaler 2 - 4 puff Inhalation Q6H PRN Qty: 1 RF: 5 montelukast [Singulair] 10 MG tablet 10 mg PO DAILY Qty: 90 RF: 4 Nucala 100 MG recon soln 1 syringe SQ 28 days RF: 0 budesonide-formoterol [Symbicort] 10.2 GM HFA aerosol inhaler 2 puff Inhalation BID Qty: 3 RF: 4 ipratropium-albuterol [DuoNeb] 0.5 mg-3 mg(2.5 mg base)/3 mL solution for nebulization 3 ml Inhalation Q6H PRN Qty: 180 RF: 3 gabapentin 300 mg capsule 300 mg PO TID Qty: 90 RF: 5 nystatin 100,000 unit/mL suspension 500,000 unit PO QID PRNRF: 0 fluticasone propionate 16 GM spray,suspension 1 spray NS BID PRNRF: 0 buprenorphine-naloxone 1 EACH tablet, sublingual 10 mg Sublingual DAILY RF: 0 doxycycline monohydrate 100 mg Capsule 100 mg PO BID RF: 0 docusate sodium [Colace] 100 mg Capsule 100 mg PO BID RF: 0 prednisone 10 mg Tablet See Taper mg PO DAILY RF: 0 acetaminophen [Tylenol] 325 MG tablet 650 mg PO Q4H PRN PRN (Reason: Pain, fever) RF: 0 Discharge Instructions Additional Instructions: The top bandage can be removed tomorrow. The steri strips will usually stick for about a week. When the edges start to curl up, they can be removed. It is okay to shower tomorrow, the water can run over the steri strips Do not swim or soak in a tub for two weeks Call for any concerns including fever, increased pain, vomiting, incision redness or drainage. Do not lift more than 15 pounds for four weeks. Walking and stairs are fine. Do not drive if on narcotic pain meds or if limited by pain. May use Tylenol alternating with ibuprofen for pain control. Ice is also an option. The maximum dose for Tylenol is 4000 mg/day. May use ibuprofen 800 mg every 8 hours as needed. If concerned about constipation, you may use a stool softener or milk of magnesia. Stand Alone Forms: DSU Post op Instructions, Sunil Gomez (DSU) Referrals: Viv North MD [ [facility] STAFF PHYSICIAN] - (Return in 7-10 days for a postop check) Activity:: Do not lift more than 15 pounds Remove Dressings/Wound Care:: 24 hours Shower/Bathe:: 24 hours Diet:: As Tolerated Discharge Orders Discharge Orders: Discharge Order (Routine); Ordered 06/17/19 Ordered By: Viv North DS: Diagnosis Discharge Diagnosis (1) Hernia, umbilical: Status: Acute
[2019-06-17] MEDS: CLINDAMYCIN 600 MG/50 ML BAG 100 MG IVPB (10:15)
[2019-06-17] MEDS: Bupivacaine LIPOSOME/PF 133 MG/10 ML VIAL IJ (10:39)
[2019-06-17] MEDS: Bupivacaine 0.5% Pres-Free 30 ML VIAL (10:39)
--- NOTE | 2019-06-17 12:47 | ROE_ITS ---
Date of service: 06/17/19 Time of Service: 11:00 Operative Note Operative Note DATE OF PROCEDURE: 06/17/19 PRE-OP DIAGNOSIS: Umbilical hernia POST-OP DIAGNOSIS: same PROCEDURE: Umbilical hernia repair SURGEON: Viv North EMBEDDED ENGINEER: Gia Cruz ANESTHESIA: local and spinal Patient was transported to: PACU Patient's condition: stable Indications: This patient presented with a tender lump at the umbilicus. CT and exam suggested a small incarcerated umbilical hernia. Due to her co- morbidities, we attempted observation but the area remains bothersome and she presents for surgical repair. Procedure Description: The patient was placed supine on OR table and her abdomen was prepped and draped sterilely. The spinal was tested and seemed adequate but as a precaution the periumbilical region was also infiltrated with half percent Marcaine with epi. A curvilinear incision was made underneath the umbilicus and subcutaneous tissue divided with cautery down to the fascia. The umbilical skin was elevated off of the fascia to reveal a small fat-containing hernia. The fat was incarcerated which is likely the cause of her pain. This was freed up from the surrounding tissues and reduced through a fascial defect measuring about 5 mm. This was too small for mesh placement so was closed with 3 interrupted 0 Vicryl sutures. Palpation in the region revealed no other abnormalities. The umbilical skin was tacked back down to the fascia and then the incision closed with a running 4 Monocryl subcuticular stitch. I also injected the region with 20 cc of Exparel. The patient became very anxious during the procedure because she was unable to move her legs from the spinal and was given some sedation. She was stable to recovery.
[2019-06-17] MEDS: HYDROmorphone 2 MG TAB PO (12:49)
== END 2019-06-17 13:40 | disposition home or self-care (01) ==
PROVIDERS: PCP Family Medicine; Visit Provider Surgery
PROC: (CPT 49585; principal; 2019-06-17 10:15)
DX: K42.9 Umbilical hernia without obstruction or gangrene (principal)
CPT/HCPCS: 49585; J2250; J2405

== ENCOUNTER → 2019-06-28 10:02 | Outpatient (BNVA) | payer MEDICARE, MEDICAID, SELFPAY | PROVIDERS: PCP Family Medicine; Referring Provider Family Medicine; Visit Provider Surgery | DX: Z48.815 Encounter for surgical aftercare following surgery on the digestive system (principal) ==

== ENCOUNTER → 2019-07-28 09:31 | Outpatient (BNVA) | payer MEDICARE, MEDICAID, SELFPAY | PROVIDERS: PCP Family Medicine; Referring Provider Family Medicine; Visit Provider Surgery | DX: Z48.815 Encounter for surgical aftercare following surgery on the digestive system (principal); K46.9 Unspecified abdominal hernia without obstruction or gangrene; F11.20 Opioid dependence, uncomplicated; R10.33 Periumbilical pain ==

== ENCOUNTER 2019-08-24 01:17 | Outpatient (CLI) | payer MEDICARE, MEDICAID, SELFPAY ==
--- NOTE | 2019-08-24 09:30 | DI.US_ITS ---
EXAM: US SOFT TISS ABD WALL/LOW BACK CLINICAL HISTORY: Postop abdominal pain since surgery June 2019, G89.18 TECHNIQUE: Ultrasound performed using standard protocol. COMPARISON: US US OB 2-3 trimester from 04/13/[address] ABDOMEN PELVIS W from 05/31/2019 FINDINGS: Ultrasound examination was obtained to evaluate the anterior abdominal wall, the patient has reported ly had prior umbilical hernia repair approximately 2 months ago. There is an 18 x 12 x 7 millimeter in diameter ovoid area of decreased echogenicity just above the umbilicus, the abdominal wall appears discontinuous at this site, the findings could represent postsurgical scarring but the possibility o f recurrent or persistent hernia is not excluded. I would note that the finding does not change with Valsalva maneuver. Further evaluation with abdominal CT may be obtained if clinically indicated. IMPRESSION: 18 x 12 x 7 millimeter in diameter hypoechogenic focus at or near umbilical hernia repair site, diagn ostic possibilities include postsurgical scarring versus organizing hematoma versus recurrent hernia. Notably, Valsalva maneuver does not appear to cause any change in the appearance of this finding. DATA REPOSITORY:
== END 2019-08-24 01:37 ==
PROVIDERS: PCP Family Medicine; Visit Provider Nurse Practitioner Family
DX: G89.18 Other acute postprocedural pain (principal); R19.05 Periumbilic swelling, mass or lump
CPT/HCPCS: 76705

== ENCOUNTER → 2019-09-09 10:48 | Outpatient (BNVA) | payer MEDICARE, MEDICAID, SELFPAY | PROVIDERS: PCP Family Medicine; Referring Provider Family Medicine; Visit Provider Surgery | DX: R10.33 Periumbilical pain (principal) ==

== ENCOUNTER 2019-10-29 03:11 | Outpatient (CLI) | payer MEDICARE, MEDICAID, SELFPAY ==
--- NOTE | 2019-10-29 | DI.RAD_ITS ---
EXAM: XR CHEST 2V PA LATERAL CLINICAL HISTORY: INCREASED COUGH,CHEST PAIN WITH CHRONIC LUNG DISEASE TECHNIQUE: COMPARISON: CR XR CHEST 2V PA LATERAL from 02/10/2018 FINDINGS: The lungs appear mildly hyperinflated but clear. No pleural effusion seen. Cardiac size within norm al limits. IMPRESSION: No evidence of acute process. Mild pulmonary hyperinflation. RADIATION DOSE DELIVERED: Total DLP
== END 2019-10-29 03:31 ==
PROVIDERS: PCP Family Medicine; Visit Provider Internal Medicine
DX: R05 Cough (principal); R07.89 Other chest pain; J98.4 Other disorders of lung
CPT/HCPCS: 87070; 87205; 71046

== ENCOUNTER 2019-11-23 01:40 | Outpatient (CLI) | payer MEDICARE, MEDICAID, SELFPAY ==
[2019-11-24 20:24] LABS: COVID-19 RT-PCR Result NEGATIVE (Negative)
== END 2019-11-23 02:00 ==
PROVIDERS: PCP Family Medicine; Visit Provider Internal Medicine
DX: J82.81 Chronic eosinophilic pneumonia (principal)
CPT/HCPCS: U0003

== ENCOUNTER 2019-12-03 03:24 | Outpatient (CLI) | payer MEDICARE, MEDICAID, SELFPAY ==
--- NOTE | 2019-12-03 | DI.CT_ITS ---
EXAM: CT CHEST WO CLINICAL HISTORY: INTERSTITAL LUNG DISEASE,J84.9,INCREASED COUGH,DYSPNEA,DECLINE IN LUNG FUNC TECHNIQUE: Imaging Protocol: Axial computed tomography images with coronal and sagittal reformatted images were created and reviewed CONTRAST MATERIAL: Intravenous: Omnipaque 350 Contrast volume:structured data in ml. COMPARISON: CR XR CHEST 2V PA LATERAL from 10/29/2019 FINDINGS: Tracheobronchial tree: Patent. Mild bilateral diffuse bronchiectasis. Mediastinum and Jeanine: No dominant adenopathy or fluid collection. Minimal amount of residual thymic t issue. Pulmonary parenchyma: No consolidation or dominant measurable mass. Suture material is noted at the l eft upper lobe. There are no abnormal increased interstitial changes or evidence of at emphysematous changes. There are mild patchy ground-glass nodules in both upper and lobe lower lobes, greater in the upper lobes. Findings are nonspecific could be secondary to viral pneumonitis or other infectio us or inflammatory causes. Pleura: No effusion or pneumothorax. Heart: The heart is not dilated. No coronary artery calcifications are seen. Aorta: Thoracic aorta non-dilated. Upper abdomen: Unremarkable. Lymph nodes: Within normal limits. Bones: Normal. Tubes, Catheters, and Lines: None Soft tissues: Unremarkable. IMPRESSION: Mild diffuse bronchiectasis. Mild bilateral ground-glass nodules could represent viral pneumonitis o r be secondary to other infectious or inflammatory causes. The pattern is not typical for COVID- 19. RADIATION DOSE DELIVERED: Total DLP DATA REPOSITORY: All CT scans at this facility are submitted to the National Radiology Data Registry (NRDR) Dose Index Registry (DIR) with the [employer] (ACR). RADIATION OPTIMIZATION: All CT scans at this facility use at least one of these dose optimization te chniques: automated exposure control; mA and/or kV adjustment per patient size (includes targeted exa ms where dose is matched to clinical indication); or iterative reconstruction.
== END 2019-12-03 03:44 ==
PROVIDERS: PCP Family Medicine; Visit Provider Internal Medicine
DX: J84.89 Other specified interstitial pulmonary diseases (principal); J47.9 Bronchiectasis, uncomplicated; R91.8 Other nonspecific abnormal finding of lung field
CPT/HCPCS: 71250

== ENCOUNTER 2019-12-03 11:26 | Outpatient (CLI) | payer MEDICARE, MEDICAID, SELFPAY ==
--- NOTE | 2019-12-03 08:45 | DI.CT_ITS ---
EXAM: CT ABDOMEN PELVIS W CLINICAL HISTORY: UMBILICAL PAIN S/P UMBILICAL HERNIA REPAIR JULY, R10.30. TECHNIQUE: Imaging Protocol: Axial computed tomography images with coronal and sagittal reformatted images were created and reviewed CONTRAST MATERIAL: Intravenous: Omnipaque 350 Contrast volume:100 cc Oral: yes COMPARISON: CT CT ABDOMEN PELVIS W from 05/31/2019 FINDINGS: ABDOMEN: Lung Bases: Normal where visualized. Liver: Normal density. No measurable mass. Gallbladder and biliary tract: No radiodense calculus or dilation. Pancreas: Normal density, no abnormal calcifications or inflammatory process. Spleen: Normal. Kidneys: Normal size, contour and axis. No radiodense stones or obstructive uropathy. No masses seen. Adrenal glands: No masses seen. Abdominal Aorta: Abdominal portion non-dilated. Abdominal wall: No umbilical hernia is seen. There are 2 tiny abdominal wall hernias containing fat seen above the level of the umbilicus, unchanged. PELVIS: Bladder: Symmetric distention, no gross wall thickening. Bowel: There is a large quantity of stool seen throughout the colon. The colon is somewhat distended . There is no small bowel dilatation. The stomach is unremarkable. No obstruction or bowel wall th ickening. Peritoneal cavity: No ascites, collection or mesenteric inflammatory response. Bones: Within normal limits. Reproductive organs: Within normal limits. Retroflexed uterus. Lymph nodes: Unremarkable. Impression: Large quantity of fecal material, consistent with constipation. Tiny fatty containing hernias in the anterior abdominal wall superior to the level of the umbilicus. RADIATION DOSE DELIVERED: Total DLP DATA REPOSITORY: All CT scans at this facility are submitted to the National Radiology Data Registry (NRDR) Dose Index Registry (DIR) with the [employer] ([employer]). RADIATION OPTIMIZATION: All CT scans at this facility use at least one of these dose optimization te chniques: automated exposure control; mA and/or kV adjustment per patient size (includes targeted exa ms where dose is matched to clinical indication); or iterative reconstruction.
[2019-12-03] MEDS: Breeza Beverage 473 ML BTL PO ×2 (13:46→13:47)
[2019-12-03] MEDS: Omnipaque 350 MG/ML 50 ML BTL PO (13:46)
[2019-12-03] MEDS: Normal Saline - Diluent 50 ML VIAL IV (13:47)
[2019-12-03] MEDS: Omnipaque 350 MG/ML 100 ML BTL IJ (13:47)
[2019-12-03] MEDS: Normal Saline Flush 10 ML SYR IVP (13:48)
== END 2019-12-03 11:46 ==
PROVIDERS: PCP Family Medicine; Visit Provider Family Medicine
DX: R10.30 Lower abdominal pain, unspecified (principal); K43.9 Ventral hernia without obstruction or gangrene; J47.9 Bronchiectasis, uncomplicated; R91.8 Other nonspecific abnormal finding of lung field; J84.89 Other specified interstitial pulmonary diseases
CPT/HCPCS: 36415; 71250; 80069; 74177; 82043; 82570; 82785; 85025; J3490; Q9967

== ENCOUNTER 2020-01-24 08:05 | Outpatient (CLI) | payer MEDICARE, MEDICAID, SELFPAY ==
[2020-01-25 20:59] LABS: COVID-19 RT-PCR UVMMC Result Negative (Negative)
== END 2020-01-24 08:25 ==
PROVIDERS: PCP Family Medicine; Visit Provider Surgery
DX: Z11.59 Encounter for screening for other viral diseases (principal); Z01.818 Encounter for other preprocedural examination
CPT/HCPCS: U0003

== ENCOUNTER 2020-04-14 08:53 | Outpatient (CLI) | payer MEDICARE, MEDICAID, SELFPAY ==
[2020-04-14 14:00] LABS: HCG Quant, Pregnancy 1 mIU/mL (1-3)
--- NOTE | 2020-04-14 14:22 | DI.RAD_ITS ---
EXAM: XR CHEST 2V PA LATERAL CLINICAL HISTORY: ASTHMA J45.909 TECHNIQUE: 2D digital imaging was performed. COMPARISON: CR XR CHEST 2V PA LATERAL from 10/29/2019 FINDINGS: MEDIASTINUM: Normal. HEART: Normal. PULMONARY VASCULATURE: Normal. LUNGS: Clear. PLEURAL SPACE: No pleural effusion or pneumothorax. BONE:Within normal limits for the patient's age. OTHER FINDINGS:Normal. IMPRESSION: No acute pulmonary findings. DATA REPOSITORY: RADIATION DOSE DELIVERED:
== END 2020-04-14 09:13 ==
PROVIDERS: PCP Family Medicine; Visit Provider Internal Medicine
DX: J45.909 Unspecified asthma, uncomplicated (principal)
CPT/HCPCS: 36415; 71046; 84702

== ENCOUNTER 2020-05-30 16:50 | Outpatient (REF) | payer MEDICARE, MEDICAID, SELFPAY ==
--- NOTE | 2020-05-30 14:30 | PAPFT_PTH ---
PATIENT: Rosy Mena LOC: [facility] U#:[id number] AGE/SX: 30/F ROOM: RE05/30/[address]: JANIE Ritchie : 1990 BED: DIS: 05/30/2020 SPEC #: [id number] RECD: 05/30/20 17:41 STATUS: IAM REQ #: [id number] PEARL: 05/30/20 14:[address]: Roxana Stockton DEPT: [facility] Cytology RECD BY: Melia Singh ENTERED: 05/30/20 17:41 SP TYPE: PAPFT OTHR DR: Go Donahue MD Tissues: 1 - CX/ENDOCX FOR PAP SMEARS Procedures: PAP THIN PREP/[facility] Screening HPV DNA PROBE Comments: [id number]
[2020-06-01 14:03] LABS: Chlamydia Result Negative (Negative); GC Result Negative (Negative)
== END 2020-05-30 16:51 | disposition home or self-care (01) ==
LOC: LBN 16:50
PROVIDERS: PCP Family Medicine; Visit Provider Nurse Practitioner Family
DX: Z11.3 Encounter for screening for infections with a predominantly sexual mode of transmission (principal); Z12.4 Encounter for screening for malignant neoplasm of cervix; Z11.51 Encounter for screening for human papillomavirus (HPV)
CPT/HCPCS: 87491; 87591; 88142; 87624

== ENCOUNTER 2020-06-05 13:50 | Emergency (ER) | payer MEDICARE, MEDICAID, SELFPAY ==
[2020-06-05] VITALS (14 sets, daily range): BP systolic 133; BP diastolic 91; PULSE 96–113; RESP 4–28; TEMP 36.7; O2SAT 94–100
--- NOTE | 2020-06-05 13:45 | RT.EKG_ITS ---
APPROVED REPORT Exam: Resting ECG Patient Location: E HR:102 bpm ECG Measurements Heart Rate 102 AXIS NM 161 P 81 QRSd 92 QRS 70 QT 332 T 75 QTc 433 Conclusion Sinus tachycardia...rate> 99 no STEMI, non-diagnostic EKG I have reviewed and interpreted ECG and agree with software generated interpretation.
--- NOTE | 2020-06-05 14:15 | DI.RAD_ITS ---
EXAM: XR PORTABLE CHEST AP CLINICAL HISTORY: shortness of breath. TECHNIQUE: 2D digital imaging was performed. COMPARISON: CR XR CHEST 2V PA LATERAL from 04/14/2020 FINDINGS: Heart size is normal. The mediastinum is not widened. Chest leads in place Left lung is clear. Pleural based density on the right side noted, not evident on the prior study. Difficult to determine if this is an actual pleural abnormality or redundant skin. Recommend PA and lateral nonportable vie ws when clinically possible. IMPRESSION: Pleural based density on the right side. Recommend PA NON PORTABLE VIEW Metallic densities are projected over the chin/mouth region. DATA REPOSITORY: RADIATION DOSE DELIVERED: All CT scans at this facility use at least one of these dose optimization techniques: automated exposure control; mA and/or kV adjustment per patient size (includes targeted e xams where dose is matched to clinical indication); or iterative reconstruction.
[2020-06-05] MEDS: methylPREDNISolone SUCC 125 MG VIAL IVP (14:25)
[2020-06-05] MEDS: Normal Saline 1,000 ML 1000 ML IV (14:26)
[2020-06-05] MEDS: Albuterol/Ipratropium 3 ML UPD VIAL 9 ML UPD (14:28)
[2020-06-05 14:33] LABS: Source Nasal/Nares
[2020-06-05 14:35] LABS: Abs Immature Grans 0.03 10^3/uL (0.0-0.06); Absolute Basophil Count 0.07 10^3/uL (0.0-0.2); Absolute Eosinophil Count 0.31 10^3/uL (0.0-0.7); Absolute Lymphocyte Count 2.23 10^3/uL (1.2-3.4); Absolute Monocyte Count 0.71 10^3/uL (0.1-0.8); Absolute Neutrophil Count 4.07 10^3/uL (1.2-6.7); Basophils % 0.9; Eosinophils % 4.2; HCT 38.6 % (36.0-46.0); HGB 12.3 g/dL (11.2-15.7); Immature Grans % 0.4; Lactate 1.4 mmol/L (0.6-1.4); Lymphocytes % 30.1; MCH 28.5 pg (27.0-33.0); MCHC 31.9 % (32.0-36.0); MCV 89.6 fL (80-95); MPV 8.8 fL (8.0-11.0); Monocytes % 9.6; Neutrophils % 54.8; Nucleated RBC 0 %; Platelet Count 448 10^3/uL (130-400); RBC 4.31 10^6/uL (3.93-5.22); RDW 14.8 % (11.7-14.6); RDW-SD 48.9 fL; WBC 7.42 10^3/uL (4.4-10.8)
[2020-06-05 14:57] LABS: ALT 26 U/L (14-59); AST 14 U/L (15-37); Albumin 3.7 g/dL (3.4-5.0); Alkaline Phosphatase 75 U/L (46-116); Anion Gap 10.8 mmol/L (3-11); BUN 11 mg/dL (7-18); Bilirubin, Total 0.2 mg/dL (0.2-1.0); CO2 24.2 mmol/L (21.0-32.0); CREATININE 0.8 mg/dL (0.55-1.02); Calcium 8.3 mg/dL (8.5-10.1); Chloride 107 mmol/L (98-107); Glucose 83 mg/dL (74-106); Potassium 3.9 mmol/L (3.5-5.1); Sodium 142 mmol/L (136-145); Total Protein 7.1 g/dL (6.4-8.2)
[2020-06-05 14:58] LABS: Troponin I < 0.05 ng/mL (<0.06)
[2020-06-05 15:20] LABS: COVID-19 PCR Negative (Negative)
--- NOTE | 2020-06-05 15:31 | W.ED.GENAD ---
Discharge Plan Disposition Patient Disposition: HOME Condition: Stable Discharge Details Clinical Impression: Asthma, Breath shortness Primary Care Provider: Go Donahue ED Provider: Addie Hansen [place] Meds and New Rx's Prescriptions: Continued prednisone 10 mg tablet 10 mg PO DAILY RF: 0 zolpidem [Ambien CR] 12.5 mg tablet,ext release multiphase 12.5 mg PO QHS RF: 0 cholecalciferol (vitamin D3) 25 mcg (1,000 unit) tablet 1,000 unit PO DAILY Qty: 90 RF: 3 omeprazole 20 mg capsule,delayed release(DR/EC) 20 mg PO DAILY Qty: 90 RF: 3 promethazine 25 mg tablet 25 mg PO Q6H PRN (Reason: nausea and vomiting) Qty: 15 RF: 1 buspirone 10 mg tablet 10 mg PO BID RF: 0 lorazepam 1 mg tablet 1 mg PO QHS PRNRF: 0 fluvoxamine 100 mg tablet 100 mg PO TID RF: 0 acetaminophen [Tylenol] 325 mg tablet 975 mg PO TID PRN Qty: 90 RF: 11 ondansetron HCl 4 mg tablet 4 mg PO QID PRN (Reason: nausea and vomiting) Qty: 20 RF: 0 zolpidem [Ambien CR] 12.5 mg tablet,ext release multiphase 12.5 mg PO QHS RF: 0 Viibryd 40 mg tablet 40 mg PO DAILY RF: 0 trazodone 100 mg tablet 100 mg PO QHS RF: 0 fluoxetine [Prozac] 10 mg capsule 10 mg PO QHS RF: 0 albuterol sulfate 3 ML solution for nebulization 3 ml UPD Q2H PRN PRNQty: 90 RF: 2 Combivent Respimat 4 GM mist 2 puff Inhalation PRN RF: 0 Spiriva Respimat 4 GM mist 2 puff Inhalation Q12H PRN RF: 0 levalbuterol tartrate [Xopenex HFA] 15 GM HFA aerosol inhaler 2 - 4 puff Inhalation Q6H PRN Qty: 1 RF: 5 montelukast [Singulair] 10 MG tablet 10 mg PO DAILY Qty: 90 RF: 4 budesonide-formoterol [Symbicort] 10.2 GM HFA aerosol inhaler 2 puff Inhalation BID Qty: 3 RF: 4 ipratropium-albuterol [DuoNeb] 0.5 mg-3 mg(2.5 mg base)/3 mL solution for nebulization 3 ml Inhalation Q6H PRN Qty: 180 RF: 3 gabapentin 300 mg capsule 300 mg PO TID Qty: 90 RF: 5 levothyroxine [Levoxyl] 75 mcg tablet 75 mcg PO DAILY Qty: 60 RF: 5 loratadine [Claritin] 10 mg tablet 10 mg PO DAILY Qty: 90 RF: 3 fluticasone propionate 16 GM spray,suspension 1 spray NS BID PRNRF: 0 docusate sodium [Colace] 100 mg Capsule 100 mg PO BID RF: 0 prednisone 10 mg Tablet See Taper mg PO DAILY RF: 0 Discharge Instructions Instructions: Asthma (ED), Dyspnea (ED) Additional Instructions: The pulmonology team at [facility] would like to see you this week in clinic. Please call tomorrow to schedule follow-up appointment. They recommended that you increase your prednisone as you typically would during a exacerbation. As discussed, please increase to 40 mg a day. Taper as you typically would and follow-up with pulmonology for further guidance on this. If you develop chest pain, increased shortness of breath, fever/chills or other new/worsening symptoms please seek care urgently once again. Referrals: Go Donahue [Primary Care Provider] - Discharge Data Discharge Date/Time-TO BE ENTERED AT DEPARTURE: 06/05/20 17:30 Medical Decision Making <JESSICA Castellanos - Last Filed: 06/06/20 08:15> Patient is a pulmonology patient at [facility] and sees Dr. Rashid She has resting much more comfortably in the room, she still does have inspiratory and expiratory wheezes, she is improved at time of reevaluation Oxygen saturation is 98% She received 3 DuoNeb treatments and IV Solu-Medrol She says she feels improved but still tight . Covid negative No leukocytosis, lactate negative I did consider pulmonary embolism, however patient's presentation is similar to her previous and I think there is more of a risk than benefit at this time ordering a CTA, she is not on exogenous hormones, her only risk factor is mild tachycardia, however this was after numerous neb prior to arrival Pending chest x-ray at this time, will consult with pulmonology and make definitive decision as to outpatient versus inpatient management Case will be signed out to Addie Hansen PA-C pending reevaluation and consultation at [facility] EKG does not show acute pathology Differential Diagnosis Differential Diagnosis: Pulmonary embolism, pneumonia, eosinophilic pneumonitis, pneumothorax Medical Records Medical records reviewed: Yes I reviewed the patient's medical records. Lab Data Lab results reviewed: Yes I reviewed the patient's lab results. <JESSICA Solorzano - Last Filed: 06/05/20 19:12> Care transition myself from JESSICA Pinedo. Please see her initial note regarding history, presentation and exam. 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 Patient has been struggling with this for the past 9 years. Report is chronically on 10 mg of prednisone and is able to adjust based on his symptoms. Patient reports that she has been having a flare was diagnosed with bacterial pneumonia. Was initially treated with Levaquin and subsequently clindamycin. She reports that she finished her antibiotics testing 1 week ago. 3 days ago however, her symptoms began to increase once again. She is currently only on her 10 mg of p.o. prednisone. Has been using her inhalers and nebulizers as prescribed. Reports that typically these were white well for her despite this regimen, symptoms have continued to worsen. Patient reports he does not smoke marijuana daily. Drinks alcohol. Large amount of anxiety. Patient has been maintaining oxygen saturation. After the treatments rendered by JESSICA Pinedo, patient reports her symptoms are improved although she still feels slightly wheezy. Labs were obtained. No leukocytosis. Normal lactate. Covid was negative, no significant abnormalities on labs. Initial chest x-ray is reviewed by radiologist. Recommend reevaluation for pleural-based density on the right side. Will obtain formal films with PA and lateral films. Have requested consultation with patient's juice packaging machines setter from [facility]. Consulted with pulmonology at [facility]. He advised having her go home tonight. Go up to prednisone to 30mg QD if this has wrked wel for her. Patient typically self administers her prednisone dosing. They will see her this week in follow up at their clinic. FINDINGS: Lungs: Unremarkable. No consolidation. Pleural spaces: Unremarkable. No pleural effusion. No pneumothorax. Suspected pleural density seen on chest x-ray from earlier today is not visualized on the repeat films in the PA projection Heart/Mediastinum: Unremarkable. No cardiomegaly. Bones/joints: Unremarkable. IMPRESSION: Normal chest I discussed these findings with the patient. She is feeling improved. She feels that home management would be appropriate at this time. She states that she was on 30 mg daily prednisone recently and does not feel that this is sufficient and will increase to 40 mg daily. She will call her juice packaging machines setter tomorrow to schedule prompt follow-up. She reports that she does have transportation to visit. Strict return precautions were discussed. Patient does live locally and is able to return with any new or worsening symptoms. All other questions or concerns were addressed she is in agreement this plan HPI <JESSICA Castellanos - Last Filed: 06/06/20 08:15> This 30-year-old female with past medical history of eosinophilic pneumonitis, IV drug abuse, pneumonia, presents with report of shortness of breath. Patient denies current chest discomfort, calf pain or swelling. She states that this is a similar presentation to her prior and she is performed steroid taper and Levaquin. She finished Levaquin approximately 7 days ago. She is currently treated by pulmonology at [facility]. She denies known chance of , she had a negative test last week and she is currently menstruating. She denies any history of pulmonary embolism and is not currently on exogenous hormone. She does smoke marijuana. She has been using her inhalers at home without relief of her symptoms. She is also chronically on 10 mg of prednisone. She states that during the day she typically feels improvement at night the symptoms are exacerbated. This episode has been going on for approximately 3 weeks now. General Date/Time Provider Initiated Documentation: 06/05/20 14:03. Related Data Home Medications Medication Instructions Recorded Confirmed albuterol sulfate 3 ml UPD Q2H PRN PRN #90 vial 10/27/13 05/16/20 Combivent Respimat 2 puff INHALATION PRN inhaler 06/20/16 05/16/20 Spiriva Respimat 2 puff INHALATION Q12H PRN 06/20/16 05/16/20 levalbuterol tartrate [Xopenex HFA] 2 - 4 puff INHALATION Q6H PRN #1 09/02/16 05/16/20 inhaler montelukast [Singulair] 10 mg PO DAILY #90 tab-cap 10/02/16 05/16/20 budesonide-formoterol [Symbicort] 2 puff INHALATION BID #3 inhaler 03/19/17 05/16/20 ipratropium 0.5 mg-albuterol 3 mg 3 ml INHALATION Q6H PRN #180 ml 10/23/17 05/16/20 (2.5 mg base)/3 mL nebulization soln ondansetron HCl 4 mg tablet 4 mg PO QID PRN #20 tab 03/04/18 05/16/20 cholecalciferol (vitamin D3) 25 1,000 unit PO DAILY #90 tab-cap 02/02/19 05/16/20 mcg (1,000 unit) tablet omeprazole 20 mg capsule,delayed 20 mg PO DAILY #90 tab-cap 02/02/19 05/16/20 release prednisone 10 mg tablet 10 mg PO DAILY 02/02/19 05/16/20 promethazine 25 mg tablet 25 mg PO Q6H PRN #15 tab 02/02/19 05/16/20 zolpidem 12.5 mg tablet,extended 12.5 mg PO QHS 02/02/19 05/16/20 release,multiphase fluticasone propionate 1 spray NS BID PRN 05/31/19 05/16/20 docusate sodium [Colace] 100 mg PO BID 06/15/19 05/16/20 prednisone See Taper PO DAILY 06/15/19 05/16/20 vilazodone 40 mg tablet 40 mg PO DAILY 08/23/19 05/16/20 zolpidem 12.5 mg tablet,extended 12.5 mg PO QHS 08/23/19 05/16/20 release,multiphase acetaminophen 325 mg tablet 975 mg PO TID PRN #90 tab 12/03/19 05/16/20 buspirone 10 mg tablet 10 mg PO BID 12/03/19 05/16/20 fluvoxamine 100 mg tablet 100 mg PO TID tab 12/03/19 05/16/20 lorazepam 1 mg tablet 1 mg PO QHS PRN 12/03/19 05/16/20 gabapentin 300 mg capsule 300 mg PO TID #90 tab-cap 01/24/20 05/16/20 levothyroxine 75 mcg tablet 75 mcg PO DAILY #60 tab 03/31/20 05/16/20 loratadine 10 mg tablet 10 mg PO DAILY #90 tab 05/02/20 05/16/20 fluoxetine 10 mg capsule 10 mg PO QHS cap 05/16/20 05/16/20 trazodone 100 mg tablet 100 mg PO QHS 05/16/20 05/16/20 Previous Rx's Medication Instructions Recorded budesonide-formoterol [Symbicort] 2 puff INHALATION BID #3 inhaler 03/19/17 ipratropium 0.5 mg-albuterol 3 mg 3 ml INHALATION Q6H PRN #180 ml 10/23/17 (2.5 mg base)/3 mL nebulization soln ondansetron HCl 4 mg tablet 4 mg PO QID PRN #20 tab 03/04/18 cholecalciferol (vitamin D3) 25 1,000 unit PO DAILY #90 tab-cap 02/02/19 mcg (1,000 unit) tablet omeprazole 20 mg capsule,delayed 20 mg PO DAILY #90 tab-cap 02/02/19 release promethazine 25 mg tablet 25 mg PO Q6H PRN #15 tab 02/02/19 acetaminophen 325 mg tablet 975 mg PO TID PRN #90 tab 12/03/19 gabapentin 300 mg capsule 300 mg PO TID #90 tab-cap 01/24/20 levothyroxine 75 mcg tablet 75 mcg PO DAILY #60 tab 03/31/20 loratadine 10 mg tablet 10 mg PO DAILY #90 tab 05/02/20 Allergies Allergy/AdvReac Type Severity Reaction Status Date / Time ibuprofen [From Advil] Allergy Mild ADVIL ONLY Verified 06/05/20 14:06 SKIN RASH amoxicillin Allergy Verified 06/05/20 14:06 diphenhydramine Allergy Hives Verified 06/05/20 14:06 erythromycin base Allergy SKIN RASH Verified 06/05/20 14:06 metronidazole [From Flagyl] Allergy SKIN RASH Verified 06/05/20 14:06 Metronidazole HCl Allergy SKIN RASH Verified 06/05/20 14:06 [From Flagyl] penicillin V [Penicillin V] Allergy Verified 06/05/20 14:06 Sulfa (Sulfonamide Allergy Hives Verified 06/05/20 14:06 Antibiotics) General Stated Complaint: SOB BART: 2 <Addienaseem Hasnen, PA - Last Filed: 06/05/20 19:12> This 30-year-old female with past medical history of eosinophilic pneumonitis, IV drug abuse, pneumonia, presents with report of shortness of breath. Patient denies current chest discomfort, calf pain or swelling. She states that this is a similar presentation to her prior and she is performed steroid taper and Levaquin. She finished Levaquin approximately 7 days ago. She is currently treated by pulmonology at [facility]. She denies known chance of , she had a negative test last week and she is currently menstruating. She denies any history of pulmonary embolism and is not currently on exogenous hormone. She does smoke marijuana. She has been using her inhalers at home without relief of her symptoms. She is also chronically on 10 mg of prednisone. She states that during the day she typically feels improvement at night the symptoms are exacerbated. This episode has been going on for approximately 3 weeks now. 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 Colpo directed [id number]. No follow-up Pap/HPV available in EMR. 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 Says has abused herion since age 10. b. NO IV DRUG USE IN FIVE MONTHS. c. Recently enrolled in the [facility] Suboxone program, recently transferred from [place] to [facility] and is at a steady state having gone through induction. d. States surveillance testing showed buprenorphine and no other opiates this past (11/25/2013). e. Reports surveillance testing negative for hepatitis and HIV. Pneumonia (12/01/13) 04/10/2018 date of conception ~ 01/03/2018. Patient was unaware she was had workup for abdominal pain and CT of abdomen showed a viable . She wishes to continue the . unplanned but desired by pt. 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 Caregiver/Support person: No Household members: family and children Housing: apartment Do you need help understanding health information?: Rarely current occupation: Lives at home with her mother. Does crafts to occupy her time Pets and animals: Yes Pets and animals: cat(s) Sexually active: Yes (One episode of sexual intercourse approximately 2017) Do you think of yourself as: straight/heterosexual Current gender identity: female How often do you talk on the phone with friends or family?: decline to answer How often do you get together with friends or relatives?: decline to answer How often do you attend evangelical or taoism services?: decline to answer Do you belong to any clubs or organized social groups?: no Panel score (0-1 are the most socially isolated patients): 0 Loraine/Christian: None Do you feel safe at home: Yes Do you feel safe in your relationship?: Yes Additional Social history: Lives at home with mother. Does not work. Does crafts during the day. Female Reproductive History Menstrual control method: none History History 2 Para Hx # Term Pregnancies 0 Multiple births Hx # Pregnancies Ectopic pregnancies AB induced Hx Number of Living Children AB spontaneous 1 Past Pregnancies Del. Date GA/Weeks # Outcome Route Wgt Sex Labor Lgth Anesthesia Location Prov Complic Unknown Delivery Date: Patient transferred care to [facility] on 05/11/2018 Mildred Zuñiga Exam <JESSICA Castellanos - Last Filed: 06/06/20 08:15> Const General: cooperative and anxious Orientation: alert and awake Eyes Pupils: PERRL Resp Effort & Inspection: able to speak in complete sentences, cough, retractions and tachypneic Auscultation: diminished lung sounds and wheezes Cardio Rate: tachycardic Rhythm: regular rhythm GI Palpation: soft and nontender Skin General skin exam: no rashes or lesions noted Neuro General: patient alert and patient oriented x3 Extrem Other: No calf tenderness or swelling appreciated Course <JESSICA Castellanos - Last Filed: 06/06/20 08:15> Vital Signs Vital signs: Vital Signs Pulse Oximetry 95 06/05/20 13:57 Temperature 36.7 C 06/05/20 14:01 Temperature Source Temporal Artery Scan 06/05/20 14:01 Pulse 100 H 06/05/20 14:58 Pulse 96 H 06/05/20 14:50 Respiratory Rate 18 06/05/20 14:58 Respiratory Effort Non-Labored 06/05/20 14:53 Respiratory Depth Normal 06/05/20 14:53 Respiratory Pattern Normal 06/05/20 14:53 Blood Pressure 133/91 H 06/05/20 14:01 Blood Pressure Mean 101 06/05/20 13:59 Blood Pressure Position Sitting 06/05/20 14:01 Pulse Oximetry 100 06/05/20 14:58 Oxygen Delivery Method Room Air 06/05/20 14:28 Oxygen Flow Rate 0 06/05/20 14:28 Lab/Test Results Lab/Test Results: 06/05/20 15:08 Sputum Sputum Culture - Pending 06/05/20 15:08 Sputum Gram Stain - Pending 06/05/20 14:22 Blood Blood Culture - Pending 06/05/20 14:22 Blood Blood Culture - Pending Laboratory Tests Range/Units 06/05/20 06/05/20 06/05/20 14:03 14:03 14:03 WBC (4.4-10.8) 10^3/uL 7.42 RBC (3.93-5.22) 10^6/uL 4.31 Hgb (11.2-15.7) g/dL 12.3 Hct (36.0-46.0) % 38.6 MCV (80-95) fL 89.6 MCH (27.0-33.0) pg 28.5 MCHC (32.0-36.0) % 31.9 L RDW (11.7-14.6) % 14.8 H Plt Count (130-400) 10^3/uL 448 H MPV (8.0-11.0) fL 8.8 Immature Gran % 0.4 Neutrophils % 54.8 Lymphocytes % 30.1 Monocytes % 9.6 Eosinophils % 4.2 Basophils % 0.9 Nucleated RBC % % 0 Absolute Neutrophils (1.2-6.7) 10^3/uL 4.07 Absolute Lymphocytes (1.2-3.4) 10^3/uL 2.23 Absolute Monocytes (0.1-0.8) 10^3/uL 0.71 Absolute Eosinophils (0.0-0.7) 10^3/uL 0.31 Absolute Basophils (0.0-0.2) 10^3/uL 0.07 VBG Lactate (0.6-1.4) mmol/L 1.4 Sodium (136-145) mmol/L 142 Potassium (3.5-5.1) mmol/L 3.9 Chloride (98-107) mmol/L 107 Carbon Dioxide (21.0-32.0) mmol/L 24.2 Anion Gap (3-11) mmol/L 10.8 BUN (7-18) mg/dL 11 Creatinine (0.55-1.02) mg/dL 0.8 Estimated GFR/1.73 m2 (mL/min/1.73m2) >= 60.00 Glucose (74-106) mg/dL 83 Calcium (8.5-10.1) mg/dL 8.3 L Total Bilirubin (0.2-1.0) mg/dL 0.2 AST (15-37) U/L 14 L ALT (14-59) U/L 26 Alkaline Phosphatase (46-116) U/L 75 Troponin I (<0.06) ng/mL < 0.05 Total Protein (6.4-8.2) g/dL 7.1 Albumin (3.4-5.0) g/dL 3.7 COVID-19 Source SARS-CoV-2 (PCR) (Negative) Range/Units 06/05/20 14:23 WBC (4.4-10.8) 10^3/uL RBC (3.93-5.22) 10^6/uL Hgb (11.2-15.7) g/dL Hct (36.0-46.0) % MCV (80-95) fL MCH (27.0-33.0) pg MCHC (32.0-36.0) % RDW (11.7-14.6) % Plt Count (130-400) 10^3/uL MPV (8.0-11.0) fL Immature Gran % Neutrophils % Lymphocytes % Monocytes % Eosinophils % Basophils % Nucleated RBC % % Absolute Neutrophils (1.2-6.7) 10^3/uL Absolute Lymphocytes (1.2-3.4) 10^3/uL Absolute Monocytes (0.1-0.8) 10^3/uL Absolute Eosinophils (0.0-0.7) 10^3/uL Absolute Basophils (0.0-0.2) 10^3/uL VBG Lactate (0.6-1.4) mmol/L Sodium (136-145) mmol/L Potassium (3.5-5.1) mmol/L Chloride (98-107) mmol/L Carbon Dioxide (21.0-32.0) mmol/L Anion Gap (3-11) mmol/L BUN (7-18) mg/dL Creatinine (0.55-1.02) mg/dL Estimated GFR/1.73 m2 (mL/min/1.73m2) Glucose (74-106) mg/dL Calcium (8.5-10.1) mg/dL Total Bilirubin (0.2-1.0) mg/dL AST (15-37) U/L ALT (14-59) U/L Alkaline Phosphatase (46-116) U/L Troponin I (<0.06) ng/mL Total Protein (6.4-8.2) g/dL Albumin (3.4-5.0) g/dL COVID-19 Source Nasal/nares SARS-CoV-2 (PCR) (Negative) Negative Sign Out <JESSICA Castellanos - Last Filed: 06/06/20 08:15> Sign Out Data: Sign Out Comment: pending consultation with PT's juice packaging machines setter and disposition Last updated by Melia Pinedo PA at 06/05/20 15:56
--- NOTE | 2020-06-05 16:30 | DI.RAD_ITS ---
EXAM: XR CHEST 2V PA LATERAL CLINICAL HISTORY: SOB TECHNIQUE: 2D digital imaging was performed. COMPARISON: CR XR CHEST 2V PA LATERAL from 04/14/2020 CR XR PORTABLE CHEST AP from 06/05/2020 FINDINGS: MEDIASTINUM: Normal. HEART: Normal. PULMONARY VASCULATURE: Normal. LUNGS: Clear. PLEURAL SPACE: No pleural effusion or pneumothorax. BONE:Within normal limits for the patient's age. OTHER FINDINGS:Normal. IMPRESSION: No acute pulmonary findings. DATA REPOSITORY: RADIATION DOSE DELIVERED:
--- NOTE | 2020-06-05 16:57 | DI.VRAD_ITS ---
PROCEDURE INFORMATION: Exam: XR Chest Exam date and time: 06/05/2020 4:44 PM Age: 30 years old Clinical indication: Abnormal findings; Abnormal radiologic exam of lung or chest TECHNIQUE: Imaging protocol: XR of the chest. Views: 2 views. COMPARISON: CR XR PORTABLE CHEST AP 06/05/2020 3:45 PM FINDINGS: Lungs: Unremarkable. No consolidation. Pleural spaces: Unremarkable. No pleural effusion. No pneumothorax. Suspected pleural density seen on chest x-ray from earlier today is not visualized on the repeat films in the PA projection Heart/Mediastinum: Unremarkable. No cardiomegaly. Bones/joints: Unremarkable. IMPRESSION: Normal chest Dictated and Authenticated by: Olga Dominguez MD. Ordering:LINDSAY Real MD
== END 2020-06-05 17:30 | disposition home or self-care (01) ==
PROVIDERS: Physician Assistant; Emergency Provider Physician Assistant; PCP Family Medicine
DX: J45.909 Unspecified asthma, uncomplicated (principal); R06.02 Shortness of breath; Z20.822 Contact with and (suspected) exposure to COVID-19
CPT/HCPCS: 80053; 81025; 87040; 87635; 93005; 94640; 96361; 96374; 99284; 71045; 71046; 83605; 84484; 85025; 87070; 87205; 93010; 99283; J2930; J7620

== ENCOUNTER 2020-07-31 10:30 | Emergency (ER) | payer MEDICARE, MEDICAID, SELFPAY ==
[2020-07-31] VITALS (25 sets, daily range): BP systolic 106; BP diastolic 73; PULSE 107–132; RESP 4–30; TEMP 36; O2SAT 95–100
--- NOTE | 2020-07-31 10:30 | RT.EKG_ITS ---
APPROVED REPORT Exam: Resting ECG Reason for Exam: difficulty breathing Patient Location: E HR:117 bpm ECG Measurements Heart Rate 117 AXIS TX 153 P 87 QRSd 97 QRS 75 QT 324 T 62 QTc 453 Conclusion Sinus tachycardia...rate> 99 Probable left atrial enlargement...P >50mS, <-0.10mV V1 sinus tachycardia at 117, significant artifact, normal axis, no apparent acute ischemic changes, nond iagnostic EKG
[2020-07-31] MEDS: Albuterol/Ipratropium 3 ML UPD VIAL ×4 (10:47→10:55)
[2020-07-31] MEDS: Normal Saline 1,000 ML 1000 ML IV (10:50)
[2020-07-31] MEDS: MAGNESIUM SULFATE 2 GM/50 ML BAG IVPB (10:59)
[2020-07-31] MEDS: methylPREDNISolone SUCC 125 MG VIAL IVP (10:59)
[2020-07-31 11:04] LABS: Abs Immature Grans 0.03 10^3/uL (0.0-0.06); Absolute Basophil Count 0.11 10^3/uL (0.0-0.2); Absolute Eosinophil Count 0.03 10^3/uL (0.0-0.7); Absolute Lymphocyte Count 1.13 10^3/uL (1.2-3.4); Absolute Monocyte Count 0.43 10^3/uL (0.1-0.8); Basophils % 1.2; Eosinophils % 0.3; HCT 38.1 % (36.0-46.0); HGB 12.5 g/dL (11.2-15.7); Immature Grans % 0.3; Lymphocytes % 12.8; MCH 28.9 pg (27.0-33.0); MCHC 32.8 % (32.0-36.0); MPV 8.9 fL (8.0-11.0); Monocytes % 4.9; Neutrophils % 80.5; Nucleated RBC 0 %; Platelet Count 423 10^3/uL (130-400); RBC 4.33 10^6/uL (3.93-5.22); RDW 15.6 % (11.7-14.6); RDW-SD 50.4 fL; WBC 8.83 10^3/uL (4.4-10.8)
--- NOTE | 2020-07-31 11:14 | W.ED.GENAD ---
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 deterioration due to their current medical conditions, which required my direct attention, intervention, and personal management. I have personally provided greater than 30 minutes of critical care time exclusive of the time spend on separately billable procedures. Time includes obtaining a history, examining the patient, pulse oximetry, review of laboratory data, radiology results, discussion with consultants, arranging urgent treatment with development of a management plan, evaluation of patient's response to treatment, and monitoring for potential decompensation. Interventions were performed as documented above.
--- NOTE | 2020-07-31 11:23 | DI.RAD_ITS ---
Exam(s) XR PORTABLE CHEST AP EXAM: XR PORTABLE CHEST AP CLINICAL HISTORY: wheeze/sob. TECHNIQUE: 2D digital imaging was performed. COMPARISON: CR,XR XR CHEST 2V PA LATERAL from 06/05/2020 FINDINGS: Heart size is normal. The mediastinum is not widened. Lungs are clear. No infiltrates nor obvious pleural effusions. Chest leads in place IMPRESSION: No acute pulmonary findings on this single AP portable view of the chest. DATA REPOSITORY: RADIATION DOSE DELIVERED: All CT scans at this facility use at least one of these dose optimization techniques: automated exposure control; mA and/or kV adjustment per patient size (includes targeted e xams where dose is matched to clinical indication); or iterative reconstruction.
[2020-07-31 11:26] LABS: ALT 30 U/L (14-59); AST 13 U/L (15-37); Albumin 3.6 g/dL (3.4-5.0); Alkaline Phosphatase 75 U/L (46-116); Anion Gap 12.2 mmol/L (3-11); BUN 11 mg/dL (7-18); Bilirubin, Total 0.2 mg/dL (0.2-1.0); CO2 22.8 mmol/L (21.0-32.0); CREATININE 0.9 mg/dL (0.55-1.02); Calcium 8.3 mg/dL (8.5-10.1); Chloride 106 mmol/L (98-107); Glucose 103 mg/dL (74-106); Magnesium 1.9 mg/dL (1.8-2.4); Potassium 3.8 mmol/L (3.5-5.1); Sodium 141 mmol/L (136-145); Total Protein 6.8 g/dL (6.4-8.2)
[2020-07-31 11:28] LABS: Troponin I < 0.05 ng/mL (<0.06)
[2020-07-31 11:37] LABS: Source Nasal/Nares
[2020-07-31 11:38] LABS: D-Dimer 152 ng/mlFEU (<500)
[2020-07-31 12:29] LABS: COVID-19 PCR Negative (Negative)
--- NOTE | 2020-07-31 13:54 | RESPIRATORY ---
07/31/20 -Pt here for WOB. Pt has long time hx of asthma. Pt was given 3 Duonebs via [employer]. Pt was still SOB and felt she wasn't getting much relief.Continuous (1hr) Alb tx was given until Pt requested it to end aftr 30 mins. Pt stated she felt she is now at her baseline. Pt states her H O2 Cylinder is empty, her neb machine is broke and her 02 concentrator will only go up to 2 LPM. A call to [employer] was placed whereas I spoke with Sharan . He states they will go to home to replace tomorrow (08/01/18) . Meanwhile, Pt and I discussed her using her portable cylinders for nebulizers, as needed and she can still use her concentrator at night as she only uses 1-2 LPM NC. Pt was given clean nebulizer cups & a spacer.
== END 2020-07-31 13:48 | disposition left against medical advice (07) ==
PROVIDERS: Emergency Provider Physician Assistant; PCP Family Medicine
DX: R06.03 Acute respiratory distress (principal); J45.901 Unspecified asthma with (acute) exacerbation; Z20.822 Contact with and (suspected) exposure to COVID-19; Z03.818 Encounter for observation for suspected exposure to other biological agents ruled out
CPT/HCPCS: 36415; 80053; 87635; 93005; 94640; 94644; 96361; 96365; 96366; 96375; 99291; 71045; 83735; 84484; 85025; 85379; 93010; J2930; J7611; J7620

== ENCOUNTER 2020-08-08 03:22 | Outpatient (CLI) | payer MEDICARE, MEDICAID, SELFPAY ==
[2020-08-08 11:36] LABS: Abs Immature Grans 0.01 10^3/uL (0.0-0.06); Absolute Basophil Count 0.06 10^3/uL (0.0-0.2); Absolute Eosinophil Count 0.06 10^3/uL (0.0-0.7); Absolute Monocyte Count 0.79 10^3/uL (0.1-0.8); Absolute Neutrophil Count 4.41 10^3/uL (1.2-6.7); Basophils % 0.8; Eosinophils % 0.8; HCT 39.2 % (36.0-46.0); HGB 12.7 g/dL (11.2-15.7); Immature Grans % 0.1; MCH 28.8 pg (27.0-33.0); MCHC 32.4 % (32.0-36.0); MCV 88.9 fL (80-95); MPV 8.8 fL (8.0-11.0); Monocytes % 10.2; Neutrophils % 57.1; Nucleated RBC 0 %; Platelet Count 386 10^3/uL (130-400); RBC 4.41 10^6/uL (3.93-5.22); RDW 15.9 % (11.7-14.6); RDW-SD 51.9 fL; WBC 7.73 10^3/uL (4.4-10.8)
[2020-08-08 12:19] LABS: ALT 18 U/L (14-59); AST 9 U/L (15-37); Albumin 3.9 g/dL (3.4-5.0); Alkaline Phosphatase 74 U/L (46-116); Anion Gap 11.1 mmol/L (3-11); BUN 10 mg/dL (7-18); Bilirubin, Total 0.3 mg/dL (0.2-1.0); CO2 25.9 mmol/L (21.0-32.0); Calcium 8.6 mg/dL (8.5-10.1); Chloride 103 mmol/L (98-107); Glucose 85 mg/dL (74-106); Sodium 140 mmol/L (136-145); Total Protein 6.9 g/dL (6.4-8.2)
[2020-08-08 16:33] LABS: Rheumatoid Factor <8.6 IU/mL (<12.0)
[2020-08-09 09:15] LABS: Cyclic Citrullinated Peptide <2.5 U/mL (<5.0)
[2020-08-09 09:20] LABS: Hepatitis B Surface Ag Negative (Negative)
[2020-08-09 09:51] LABS: HIV-1/2 Ag & Ab Screen Negative (Negative)
[2020-08-09 10:14] LABS: Hepatitis C Ab w Rflx HCV PCR Negative (Negative)
[2020-08-09 16:12] LABS: ANA Interpretation Negative (Negative)
[2020-08-09 16:13] LABS: ANCA Interpretation Negative (Negative)
[2020-08-10 09:49] LABS: Syphilis Total Ab w/Reflex Nonreactive (Nonreactive)
[2020-08-10 11:17] LABS: Myeloperoxidase Ab IgG <0.2 U; Proteinase 3 Ab (PR3) <0.2 U; Scl 70 Antibodies, IgG <0.2 U
[2020-08-10 13:11] LABS: dsDNA Ab, IgG <12.3 IU/mL (<30.0)
[2020-08-10 13:19] LABS: SS-A Antibody 2.4 Units (<20.0); SS-B (La) Ab, IgG 1.2 Units (<20.0)
[2020-08-10 13:20] LABS: Sm (Smith) Ab, IgG 2.7 Units (<20.0)
[2020-08-10 13:22] LABS: RNP Ab, IgG 16.5 Units (<20.0)
[2020-08-15 10:42] LABS: 6-Methylmercaptopurine ribosid 7.63 nmol/mL/h (5.04-9.57)
[2020-08-15 15:55] LABS: Misc Referral (MAYO) See Comments
[2020-08-18 10:22] LABS: Cockatiel Negative (Negative); Parakeet Negative (Negative); Parrot Negative (Negative); Pigeon DE Negative (Negative); Pigeon Sera Negative (Negative)
[2020-09-05 08:58] LABS: Misc Referral (MAYO) See Comments
== END 2020-08-08 03:23 | disposition home or self-care (01) ==
LOC: LBO 03:22
PROVIDERS: Nurse Practitioner Family; PCP Family Medicine; Visit Provider Physician Assistant
DX: J84.89 Other specified interstitial pulmonary diseases (principal); J82.89 Other pulmonary eosinophilia, not elsewhere classified
CPT/HCPCS: 36415; 80053; 82657; 83516; 86001; 86200; 86235; 86255; 86803; 87340; 87389; 85025; 86038; 86225; 86331; 86431; 86606; 86780

== ENCOUNTER 2020-09-25 06:09 | Emergency (ER) | payer MEDICARE, MEDICAID, SELFPAY ==
[2020-09-25 06:12] VITALS: BP 134/94; PULSE 94; RESP 18; TEMP 36.4; O2SAT 94
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
== END 2020-09-25 07:00 | disposition home or self-care (01) ==
PROVIDERS: Emergency Provider Student in an Organized Health Care Education/Training Program; PCP Family Medicine
DX: L02.413 Cutaneous abscess of right upper limb (principal); F11.10 Opioid abuse, uncomplicated
CPT/HCPCS: 10060

== ENCOUNTER 2020-09-26 09:01 | Emergency (ER) | payer MEDICARE, MEDICAID, SELFPAY ==
[2020-09-26 09:07] VITALS: BP 111/73; PULSE 72; RESP 18; TEMP 36.5; O2SAT 95
--- NOTE | 2020-09-26 09:31 | W.ED.GENAD ---
Discharge Plan Disposition Patient Disposition: HOME Condition: Stable Discharge Details Clinical Impression: Abscess of arm, right Primary Care Provider: Go Donahue ED Provider: Millie Shen Home Meds and New Rx's Prescriptions: No Action prednisone 10 mg tablet 10 mg PO DAILY RF: 0 zolpidem [Ambien CR] 12.5 mg tablet,ext release multiphase 12.5 mg PO QHS RF: 0 cholecalciferol (vitamin D3) 25 mcg (1,000 unit) tablet 1,000 unit PO DAILY Qty: 90 RF: 3 promethazine 25 mg tablet 25 mg PO Q6H PRN (Reason: nausea and vomiting) Qty: 15 RF: 1 buspirone 10 mg tablet 10 mg PO BID RF: 0 lorazepam 1 mg tablet 1 mg PO QHS PRNRF: 0 acetaminophen [Tylenol] 325 mg tablet 975 mg PO TID PRN Qty: 90 RF: 11 lorazepam 0.5 mg tablet 0.5 mg PO BID PRNRF: 0 clindamycin HCl 300 mg capsule 300 mg PO TID Qty: 30 RF: 0 ondansetron HCl 4 mg tablet 4 mg PO QID PRN (Reason: nausea and vomiting) Qty: 20 RF: 0 Viibryd 40 mg tablet 40 mg PO DAILY RF: 0 trazodone 100 mg tablet 100 mg PO QHS RF: 0 albuterol sulfate 3 ML solution for nebulization 3 ml UPD Q2H PRN PRNQty: 90 RF: 2 Combivent Respimat 4 GM mist 2 puff Inhalation PRN RF: 0 Spiriva Respimat 4 GM mist 2 puff Inhalation Q12H PRN RF: 0 levalbuterol tartrate [Xopenex HFA] 15 GM HFA aerosol inhaler 2 - 4 puff Inhalation Q6H PRN Qty: 1 RF: 5 montelukast [Singulair] 10 MG tablet 10 mg PO DAILY Qty: 90 RF: 4 budesonide-formoterol [Symbicort] 10.2 GM HFA aerosol inhaler 2 puff Inhalation BID Qty: 3 RF: 4 ipratropium-albuterol [DuoNeb] 0.5 mg-3 mg(2.5 mg base)/3 mL solution for nebulization 3 ml Inhalation Q6H PRN Qty: 180 RF: 3 levothyroxine [Levoxyl] 75 mcg tablet 75 mcg PO DAILY Qty: 60 RF: 5 loratadine [Claritin] 10 mg tablet 10 mg PO DAILY Qty: 90 RF: 3 fluvoxamine 100 mg tablet 100 mg PO TID Qty: 90 RF: 5 omeprazole 20 mg capsule,delayed release(DR/EC) 20 mg PO DAILY Qty: 90 RF: 3 fluticasone propionate 16 GM spray,suspension 1 spray NS BID PRNRF: 0 docusate sodium [Colace] 100 mg Capsule 100 mg PO BID RF: 0 dextroamphetamine-amphetamine [Adderall] 20 mg Tablet 20 mg PO BID RF: 0 gabapentin 300 mg capsule 1,100 mg PO TID RF: 0 Discharge Instructions Instructions: Abscess (ED), Abscess Incision and Drainage (DC) Additional Instructions: Continue taking the Clindamycin as directed. Keep clean and dry. Do not leave the packing in longer than 3 days. You may return here to the ER to have packing removed. Return to the ER sooner if any worsening redness, swelling, drainage, fever or any concerns. Follow up with primary care provider in 3-5 days. Return to ED sooner if any worsening or concerns. Increase oral fluids. Please take Tylenol or Ibuprofen with food every 4-6 hours as needed for pain and swelling. Referrals: Go Donahue [Primary Care Provider] - Medical Decision Making 30-year-old female presents to the ER for the second day in a row with chief complaint of right antecubital abscess from IV drug abuse. Patient was seen in urgent care on Friday was prescribed clindamycin presented approximately 24 hours ago had an I&D. She reports she did have some drainage for approximately 24 hours and then the drainage stopped. There is no significant increase in erythema. There is a mild amount of fluctuance noted at the incision site and surrounding induration. Patient reports some increased pain and radiation up into the upper part of her arm. Abscess I&D to the right antecubital area of her right extremity. Please see procedure note above. Patient declined anesthetic. Skin was prepped with chlorhexidine and alcohol. Moderate amount of purulent drainage expressed. Patient tolerated well and expressed relief of pain and symptoms. Approximately 2 inches of iodoform quarter-inch packing was placed and patient instructed on use. Instructed to return in 3 days to have packing removed and for wound recheck or follow-up with her primary care provider she verbalized understanding. Instructed to continue taking her clindamycin. Patient remained hemodynamically stable alert and oriented throughout stay and had improvement of symptoms prior to discharge. This text was generated using [employer] system, please disregard any oddities of phrase or misspellings. HPI General Mode of arrival: ambulatory. Date/Time Provider Initiated Documentation: 09/26/20 09:02. Limitations to Documentation: no limitations. Information obtained by: patient, RN notes reviewed and old records reviewed. HPI Narrative: 30-year-old female presents to the ER for the second day in a row with chief complaint of right antecubital abscess from IV drug abuse. Patient was seen in urgent care on Friday was prescribed clindamycin presented approximately 24 hours ago had an I&D. She reports she did have some drainage for approximately 24 hours and then the drainage stopped. There is no significant increase in erythema. There is a mild amount of fluctuance noted at the incision site and surrounding induration. Patient reports some increased pain and radiation up into the upper part of her arm. Related Data Home Medications Medication Instructions Recorded Confirmed albuterol sulfate 3 ml UPD Q2H PRN PRN #90 vial 10/27/13 09/26/20 Combivent Respimat 2 puff INHALATION PRN inhaler 06/20/16 09/26/20 Spiriva Respimat 2 puff INHALATION Q12H PRN 06/20/16 09/26/20 levalbuterol tartrate [Xopenex HFA] 2 - 4 puff INHALATION Q6H PRN #1 09/02/16 09/26/20 inhaler montelukast [Singulair] 10 mg PO DAILY #90 tab-cap 10/02/16 09/26/20 budesonide-formoterol [Symbicort] 2 puff INHALATION BID #3 inhaler 03/19/17 09/26/20 ipratropium 0.5 mg-albuterol 3 mg 3 ml INHALATION Q6H PRN #180 ml 10/23/17 09/26/20 (2.5 mg base)/3 mL nebulization soln ondansetron HCl 4 mg tablet 4 mg PO QID PRN #20 tab 03/04/18 09/26/20 cholecalciferol (vitamin D3) 25 1,000 unit PO DAILY #90 tab-cap 02/02/19 09/26/20 mcg (1,000 unit) tablet prednisone 10 mg tablet 10 mg PO DAILY 02/02/19 09/26/20 promethazine 25 mg tablet 25 mg PO Q6H PRN #15 tab 02/02/19 09/26/20 zolpidem 12.5 mg tablet,extended 12.5 mg PO QHS 02/02/19 09/26/20 release,multiphase fluticasone propionate 1 spray NS BID PRN 05/31/19 09/26/20 docusate sodium [Colace] 100 mg PO BID 06/15/19 09/26/20 vilazodone 40 mg tablet 40 mg PO DAILY 08/23/19 09/26/20 acetaminophen 325 mg tablet 975 mg PO TID PRN #90 tab 12/03/19 09/26/20 buspirone 10 mg tablet 10 mg PO BID 12/03/19 09/26/20 lorazepam 1 mg tablet 1 mg PO QHS PRN 12/03/19 09/26/20 levothyroxine 75 mcg tablet 75 mcg PO DAILY #60 tab 03/31/20 09/26/20 loratadine 10 mg tablet 10 mg PO DAILY #90 tab 05/02/20 09/26/20 trazodone 100 mg tablet 100 mg PO QHS 05/16/20 09/26/20 lorazepam 0.5 mg tablet 0.5 mg PO BID PRN 06/06/20 09/26/20 fluvoxamine 100 mg tablet 100 mg PO TID #90 tab 07/19/20 09/26/20 omeprazole 20 mg capsule,delayed 20 mg PO DAILY #90 tab-cap 08/18/20 09/26/20 release clindamycin HCl 300 mg capsule 300 mg PO TID #30 cap 09/23/20 09/26/20 dextroamphetamine-amphetamine 20 mg PO BID 09/25/20 09/26/20 [Adderall] gabapentin 1,100 mg PO TID 09/25/20 09/26/20 Previous Rx's Medication Instructions Recorded budesonide-formoterol [Symbicort] 2 puff INHALATION BID #3 inhaler 03/19/17 ipratropium 0.5 mg-albuterol 3 mg 3 ml INHALATION Q6H PRN #180 ml 10/23/17 (2.5 mg base)/3 mL nebulization soln ondansetron HCl 4 mg tablet 4 mg PO QID PRN #20 tab 03/04/18 cholecalciferol (vitamin D3) 25 1,000 unit PO DAILY #90 tab-cap 02/02/19 mcg (1,000 unit) tablet promethazine 25 mg tablet 25 mg PO Q6H PRN #15 tab 02/02/19 acetaminophen 325 mg tablet 975 mg PO TID PRN #90 tab 12/03/19 levothyroxine 75 mcg tablet 75 mcg PO DAILY #60 tab 03/31/20 loratadine 10 mg tablet 10 mg PO DAILY #90 tab 05/02/20 fluvoxamine 100 mg tablet 100 mg PO TID #90 tab 07/19/20 omeprazole 20 mg capsule,delayed 20 mg PO DAILY #90 tab-cap 08/18/20 release clindamycin HCl 300 mg capsule 300 mg PO TID #30 cap 09/23/20 Allergies Allergy/AdvReac Type Severity Reaction Status Date / Time ibuprofen [From Advil] Allergy Mild ADVIL ONLY Verified 09/26/20 09:16 SKIN RASH amoxicillin Allergy Verified 09/26/20 09:16 diphenhydramine Allergy Hives Verified 09/26/20 09:16 erythromycin base Allergy SKIN RASH Verified 09/26/20 09:16 metronidazole [From Flagyl] Allergy SKIN RASH Verified 09/26/20 09:16 Metronidazole HCl Allergy SKIN RASH Verified 09/26/20 09:16 [From Flagyl] penicillin V [Penicillin V] Allergy Verified 09/26/20 09:16 Sulfa (Sulfonamide Allergy Hives Verified 09/26/20 09:16 Antibiotics) General Stated Complaint: Cellulitis BART: 3 Review of Systems All systems reviewed & are unremarkable except as noted in HPI and below Musculoskeletal Musculoskeletal: Reports as per HPI, Denies myalgias, Reports arthralgias, Reports joint swelling (Right AC fossa) and Reports radiating pain into limb PFSH Medical History Amenorrhea, 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 Colpo directed [id number]. No follow-up Pap/HPV available in EMR. 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 b. NO IV DRUG USE IN FIVE MONTHS. c. Recently enrolled in the [facility] Suboxone program, recently transferred from [place] to [facility] and is at a steady state having gone through induction. d. States surveillance testing showed buprenorphine and no other opiates this past (11/25/2013). e. Reports surveillance testing negative for hepatitis and HIV. Pneumonia (12/01/13) 04/10/2018 date of conception ~ 01/03/2018. Patient was unaware she was had workup for abdominal pain and CT of abdomen showed a viable . She wishes to continue the . unplanned but desired by pt. 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 09/2020 - IV oxycodone Caregiver/Support person: No Household members: family and children Housing: apartment Do you need help understanding health information?: Rarely current occupation: Lives at home with her mother. Does crafts to occupy her time Pets and animals: Yes Pets and animals: cat(s) Sexually active: Yes (One episode of sexual intercourse approximately 2017) Do you think of yourself as: straight/heterosexual Current gender identity: female How often do you talk on the phone with friends or family?: decline to answer How often do you get together with friends or relatives?: decline to answer How often do you attend anabaptist or zoroastrianism services?: decline to answer Do you belong to any clubs or organized social groups?: no Panel score (0-1 are the most socially isolated patients): 0 What type of physical activity do you participate in: walking Loraine/Pentecostal: None Do you feel safe at home: Yes Do you feel safe in your relationship?: Yes Additional Social history: Lives at home with mother. Does not work. Does crafts during the day. Female Reproductive History Menstrual control method: none History History 2 Para Hx # Term Pregnancies 0 Multiple births Hx # Pregnancies Ectopic pregnancies AB induced Hx Number of Living Children AB spontaneous 1 Past Pregnancies Del. Date GA/Weeks # Outcome Route Wgt Sex Labor Lgth Anesthesia Location Prov Complic Unknown Delivery Date: Patient transferred care to [facility] on 05/11/2018 Mildred Zuñiga Exam Narrative Exam Narrative: Constitutional: Alert and oriented x3. Appears stated age. Normal body habitus. Head: Normocephalic, no trauma. Chest: RRR, Normal S1, S2, distal pulses intact. Resp: Lungs clear to auscultation bilaterally, no wheezes, rales, or rhonchi. Musculoskeletal: Normal gait, 5/5 strength to all four extremities. Skin: See extremity assessment below. Capillary refill less than 2 sec. Neurologic: Cranial nerves II-XII intact. Alert and oriented x 3. DTR's intact. Hematologic/Lymphatic: No ecchymosis, no lymphadenopathy. Extrem Right upper extremity: normal capillary refill and elbow/forearm Details: tenderness Location: of the antecubital fossa, swelling Location: of the antecubital fossa (Approximate 1cm x 1 cm abscess area with central fluctuance noted, surrounding induration.) and warmth; no cyanosis Elbow/forearm/wrist images: 1. 1cm x 1 cm area of erythema and swelling, positive central fluctuance, positive surrounding induration. Course Vital Signs Vital signs: Vital Signs Temperature 36.5 C 09/26/20 09:07 Pulse 72 09/26/20 09:07 Respiratory Rate 18 09/26/20 09:07 Blood Pressure 111/73 09/26/20 09:07 Pulse Oximetry 95 09/26/20 09:07 Temperature 36.5 C 09/26/20 09:07 Temperature Source Temporal Artery Scan 09/26/20 09:07 Pulse 72 09/26/20 09:07 Respiratory Rate 18 09/26/20 09:07 Respiratory Effort Non-Labored 09/26/20 09:14 Blood Pressure 111/73 09/26/20 09:07 Blood Pressure Position Sitting 09/26/20 09:07 Pulse Oximetry 95 09/26/20 09:07 Oxygen Delivery Method Room Air 09/26/20 09:07 Oxygen Flow Rate 0 09/26/20 09:07 Pain Level 10 09/26/20 09:07 Procedures Abscess I/D Site: Upper Extremity Side (if applicable): Right Sedation/analgesia: None Technique: Incised with #11 Blade Amount of fluid expressed (mL): 15 Irrigation: No Packing used?: Iodoform (2 inches) Complications: Other (None, patient tolerated well)
== END 2020-09-26 09:59 | disposition home or self-care (01) ==
PROVIDERS: Emergency Provider Registered Nurse Emergency; PCP Family Medicine
DX: L02.413 Cutaneous abscess of right upper limb (principal)
CPT/HCPCS: 10061

== ENCOUNTER 2020-09-27 01:00 | Outpatient (CLI) | payer MEDICARE, MEDICAID, SELFPAY ==
--- NOTE | 2020-09-27 | DI.CT_ITS ---
Exam(s) CT CHEST WO EXAM: CT CHEST WO CLINICAL HISTORY: CHRONIC DYSPNEA,SEVERE PERSIST ASTHMA,CHRONIC PREDNISONE. TECHNIQUE: Multi planar reconstructions were performed. CONTRAST MATERIAL: None COMPARISON: CT CT ABDOMEN PELVIS W from 12/03/2019 CR XR PORTABLE CHEST AP from 07/31/2020 CR XR PORTABLE CHEST AP from 07/31/2020 FINDINGS: CHEST: There has been deterioration LUNGS: There are now numerous-multiple ground-glass density nodular densities throughout both lungs, predominantly involving the upper lobes and superior segments of lower lobes with relative sparing of the basal segments of both lower lobes and sparing of the right middle lobe and lingular segment the left lung. There are no pleural effusions. MEDIASTINUM: There is no obvious hilar nor mediastinal adenopathy. Visualized thyroid unremarkable.No obvious axillary adenopathy CARDIAC: Heart size is normal. There is no pericardial effusion.Caliber of the thoracic aorta is wit hin normal limits. VISUALIZED UPPER ABDOMEN: OSSEOUS: No significant osseous lesions.. No compression fractures IMPRESSION: 1. There are now multiple similar appearing ground-glass density nodular infiltrates in both lungs wi th average size 7 millimeters (no cavitation), these predominantly in the upper lobes and superior se gments the lower lobes. No associated pleural effusions nor obvious lymphadenopathy evident on this noninfused study. Main considerations are infectious, including fungal. RADIATION DOSE DELIVERED: 409.28mGy.cm Total DLP DATA REPOSITORY: All CT scans at this facility are submitted to the National Radiology Data Registry (NRDR) Dose Index Registry (DIR) with the [employer] (ACR). RADIATION OPTIMIZATION: All CT scans at this facility use at least one of these dose optimization te chniques: automated exposure control; mA and/or kV adjustment per patient size (includes targeted exa ms where dose is matched to clinical indication); or iterative reconstruction.
== END 2020-09-27 01:20 ==
PROVIDERS: PCP Family Medicine; Visit Provider Physician Assistant
DX: J45.50 Severe persistent asthma, uncomplicated (principal); R91.8 Other nonspecific abnormal finding of lung field; Z79.52 Long term (current) use of systemic steroids
CPT/HCPCS: 71250

== ENCOUNTER 2020-10-02 13:58 | Emergency (ER) | payer MEDICARE, MEDICAID, SELFPAY ==
[2020-10-02] VITALS (10 sets, daily range): BP systolic 116–117; BP diastolic 69–84; PULSE 104–126; RESP 14–21; TEMP 36.6; O2SAT 90–95
--- NOTE | 2020-10-02 14:10 | W.ED.GENAD ---
Discharge Plan Disposition Patient Disposition: AGAINST MEDICAL ADVICE Condition: Poor Discharge Details Clinical Impression: Accidental overdose, Opioid abuse Primary Care Provider: Go Donahue ED Provider: Addie Hansen [place] Meds and New Rx's Prescriptions: Continued prednisone 10 mg tablet 10 mg PO DAILY RF: 0 zolpidem [Ambien CR] 12.5 mg tablet,ext release multiphase 12.5 mg PO QHS RF: 0 cholecalciferol (vitamin D3) 25 mcg (1,000 unit) tablet 1,000 unit PO DAILY Qty: 90 RF: 3 promethazine 25 mg tablet 25 mg PO Q6H PRN (Reason: nausea and vomiting) Qty: 15 RF: 1 buspirone 10 mg tablet 10 mg PO BID RF: 0 lorazepam 1 mg tablet 1 mg PO QHS PRNRF: 0 acetaminophen [Tylenol] 325 mg tablet 975 mg PO TID PRN Qty: 90 RF: 11 lorazepam 0.5 mg tablet 0.5 mg PO BID PRNRF: 0 clindamycin HCl 300 mg capsule 300 mg PO TID Qty: 30 RF: 0 ondansetron HCl 4 mg tablet 4 mg PO QID PRN (Reason: nausea and vomiting) Qty: 20 RF: 0 Viibryd 40 mg tablet 40 mg PO DAILY RF: 0 trazodone 100 mg tablet 100 mg PO QHS RF: 0 albuterol sulfate 3 ML solution for nebulization 3 ml UPD Q2H PRN PRNQty: 90 RF: 2 Combivent Respimat 4 GM mist 2 puff Inhalation PRN RF: 0 Spiriva Respimat 4 GM mist 2 puff Inhalation Q12H PRN RF: 0 levalbuterol tartrate [Xopenex HFA] 15 GM HFA aerosol inhaler 2 - 4 puff Inhalation Q6H PRN Qty: 1 RF: 5 montelukast [Singulair] 10 MG tablet 10 mg PO DAILY Qty: 90 RF: 4 budesonide-formoterol [Symbicort] 10.2 GM HFA aerosol inhaler 2 puff Inhalation BID Qty: 3 RF: 4 ipratropium-albuterol [DuoNeb] 0.5 mg-3 mg(2.5 mg base)/3 mL solution for nebulization 3 ml Inhalation Q6H PRN Qty: 180 RF: 3 levothyroxine [Levoxyl] 75 mcg tablet 75 mcg PO DAILY Qty: 60 RF: 5 loratadine [Claritin] 10 mg tablet 10 mg PO DAILY Qty: 90 RF: 3 fluvoxamine 100 mg tablet 100 mg PO TID Qty: 90 RF: 5 omeprazole 20 mg capsule,delayed release(DR/EC) 20 mg PO DAILY Qty: 90 RF: 3 fluticasone propionate 16 GM spray,suspension 1 spray NS BID PRNRF: 0 docusate sodium [Colace] 100 mg Capsule 100 mg PO BID RF: 0 dextroamphetamine-amphetamine [Adderall] 20 mg Tablet 20 mg PO BID RF: 0 gabapentin 300 mg capsule 1,100 mg PO TID RF: 0 Discharge Instructions Instructions: Naloxone (Into the nose), Adult Overdose (ED) Additional Instructions: I am concerned that you are leaving prior to recommended timeline based on your overdose. You may return anytime. Please keep denies any new exam the accompaniment of others. Please see attached information sheet on how to utilize this. Please keep your upcoming appointment with your counselors. Please contact [facility] regarding your financial difficulties and for assistance with housing. See pamphlet. Please follow-up with your primary care in 1 week for reevaluation. Please also stay in close contact with recovery room rn. If you have any recurrence of your symptoms, new or worsening symptoms to seek care Referrals: Go Donahue. [Primary Care Provider] - Discharge Data Discharge Date/Time-TO BE ENTERED AT DEPARTURE: 10/02/20 14:45 Medical Decision Making Patient is a pleasant 30-year-old female presenting to the chief complaint of narcotic overdose. Patient was found by family unconscious. She is in a short period of time per patient and family. Immediately contacted EMS who administered 2 mg of Narcan with immediate reversal. Yeni states that she had been clean for 8 years, began using again recently. States she had been working with [email or web address] until February, does not want to go back to that. She states she has a therapist she sees twice a weeks. She denies SI or HI. Reports this was an accidental OD. Reports that she had been using Oxycodone recently but used Fentanyl today. Has a daughter but states she was away today. On exam, she appears nontoxic. No respiratory distress, sitting up and speaking normally. VS stable. She appears guarded. Denies SI or HI. Does not want ot speak with MH. Is refusing IV or workup here today. Care management consulted as patient expressed frustrations around financial burdens. They will assist the patient and directed towards appropriate financial assistance programs. trampoline team coach at bedside speaking with the patient. Prior to seeing recovery room rn, patient began expressing concern with ride. During their meeting began insisting on leaving. She and I had initially discussed keeping her here and on monitor for a few hours, she refuses. She is aware that she may have recurrnce of symptoms. Nursing staff have given narcan and instructions on usage. She will be with friends and family. She is aware she may return at any time for continued evaluation and care. Strict return precautions given. Encouraged that she keep upcoming appointmsn with MH as well as recovery room rn. Encouraged close f/u with PCP. She demonstrates capacity and is refusing to stay for further care. Patient leaving against medical advise. HPI General Mode of arrival: EMS. Date/Time Provider Initiated Documentation: 10/02/20 14:38. Limitations to Documentation: no limitations. Information obtained by: patient, EMS, RN notes reviewed and old records reviewed. History of Present Illness 30 year old F presents to the emergency department with the chief complaint of fentanyl overdose, described as severe, Quality is described as other (reports feeling improved and back to baseline), Patient started experiencing this minute(s) and it has been now resolved. Medication improves symptom(s), (narcan) Medication worsens symptoms (fentanyl) . Patient notes no other symptoms.. Patient did receive the following treatments prior to arrival, other Related Data Home Medications Medication Instructions Recorded Confirmed albuterol sulfate 3 ml UPD Q2H PRN PRN #90 vial 10/27/13 10/02/20 Combivent Respimat 2 puff INHALATION PRN inhaler 06/20/16 10/02/20 Spiriva Respimat 2 puff INHALATION Q12H PRN 06/20/16 10/02/20 levalbuterol tartrate [Xopenex HFA] 2 - 4 puff INHALATION Q6H PRN #1 09/02/16 10/02/20 inhaler montelukast [Singulair] 10 mg PO DAILY #90 tab-cap 10/02/16 10/02/20 budesonide-formoterol [Symbicort] 2 puff INHALATION BID #3 inhaler 03/19/17 10/02/20 ipratropium 0.5 mg-albuterol 3 mg 3 ml INHALATION Q6H PRN #180 ml 10/23/17 10/02/20 (2.5 mg base)/3 mL nebulization soln ondansetron HCl 4 mg tablet 4 mg PO QID PRN #20 tab 03/04/18 10/02/20 cholecalciferol (vitamin D3) 25 1,000 unit PO DAILY #90 tab-cap 02/02/19 10/02/20 mcg (1,000 unit) tablet prednisone 10 mg tablet 10 mg PO DAILY 02/02/19 10/02/20 promethazine 25 mg tablet 25 mg PO Q6H PRN #15 tab 02/02/19 10/02/20 zolpidem 12.5 mg tablet,extended 12.5 mg PO QHS 02/02/19 10/02/20 release,multiphase fluticasone propionate 1 spray NS BID PRN 05/31/19 10/02/20 docusate sodium [Colace] 100 mg PO BID 06/15/19 10/02/20 vilazodone 40 mg tablet 40 mg PO DAILY 08/23/19 10/02/20 acetaminophen 325 mg tablet 975 mg PO TID PRN #90 tab 12/03/19 10/02/20 buspirone 10 mg tablet 10 mg PO BID 12/03/19 10/02/20 lorazepam 1 mg tablet 1 mg PO QHS PRN 12/03/19 10/02/20 levothyroxine 75 mcg tablet 75 mcg PO DAILY #60 tab 03/31/20 10/02/20 loratadine 10 mg tablet 10 mg PO DAILY #90 tab 05/02/20 10/02/20 trazodone 100 mg tablet 100 mg PO QHS 05/16/20 10/02/20 lorazepam 0.5 mg tablet 0.5 mg PO BID PRN 06/06/20 10/02/20 fluvoxamine 100 mg tablet 100 mg PO TID #90 tab 07/19/20 10/02/20 omeprazole 20 mg capsule,delayed 20 mg PO DAILY #90 tab-cap 08/18/20 10/02/20 release clindamycin HCl 300 mg capsule 300 mg PO TID #30 cap 09/23/20 10/02/20 dextroamphetamine-amphetamine 20 mg PO BID 09/25/20 10/02/20 [Adderall] gabapentin 1,100 mg PO TID 09/25/20 10/02/20 Previous Rx's Medication Instructions Recorded budesonide-formoterol [Symbicort] 2 puff INHALATION BID #3 inhaler 03/19/17 ipratropium 0.5 mg-albuterol 3 mg 3 ml INHALATION Q6H PRN #180 ml 10/23/17 (2.5 mg base)/3 mL nebulization soln ondansetron HCl 4 mg tablet 4 mg PO QID PRN #20 tab 03/04/18 cholecalciferol (vitamin D3) 25 1,000 unit PO DAILY #90 tab-cap 02/02/19 mcg (1,000 unit) tablet promethazine 25 mg tablet 25 mg PO Q6H PRN #15 tab 02/02/19 acetaminophen 325 mg tablet 975 mg PO TID PRN #90 tab 12/03/19 levothyroxine 75 mcg tablet 75 mcg PO DAILY #60 tab 03/31/20 loratadine 10 mg tablet 10 mg PO DAILY #90 tab 05/02/20 fluvoxamine 100 mg tablet 100 mg PO TID #90 tab 07/19/20 omeprazole 20 mg capsule,delayed 20 mg PO DAILY #90 tab-cap 08/18/20 release clindamycin HCl 300 mg capsule 300 mg PO TID #30 cap 09/23/20 Allergies Allergy/AdvReac Type Severity Reaction Status Date / Time ibuprofen [From Advil] Allergy Mild ADVIL ONLY Verified 10/02/20 14:02 SKIN RASH amoxicillin Allergy Verified 10/02/20 14:02 diphenhydramine Allergy Hives Verified 10/02/20 14:02 erythromycin base Allergy SKIN RASH Verified 10/02/20 14:02 metronidazole [From Flagyl] Allergy SKIN RASH Verified 10/02/20 14:02 Metronidazole HCl Allergy SKIN RASH Verified 10/02/20 14:02 [From Flagyl] penicillin V [Penicillin V] Allergy Verified 10/02/20 14:02 Sulfa (Sulfonamide Allergy Hives Verified 10/02/20 14:02 Antibiotics) General Stated Complaint: OD/Poison [facility]ART: 2 Review of Systems Constitutional Constitutional: Reports as per HPI, Denies chills, Denies fever(s), Denies headache(s) and Denies weakness ENT Ears, Nose, Mouth, and Throat: Denies headache(s) Cardiovascular Cardiovascular: Reports as per HPI, Denies chest pain, Denies lightheadedness, Denies dyspnea and Denies dyspnea on exertion Respiratory Respiratory: Reports as per HPI, Denies cough, Denies dyspnea and Denies dyspnea on exertion Gastrointestinal Gastrointestinal: Reports as per HPI, Denies abdominal pain, Denies change in bowel habits, Denies nausea and Denies vomiting Musculoskeletal Musculoskeletal: Denies abnormal gait Integumentary/Breasts Skin/Breast: Reports as per HPI, Denies rash and Reports other (reports recent abscess has healed well) Neurologic Neurologic: Denies abnormal movements, Denies abnormal speech, Denies abnormal gait, Denies headache(s), Denies paresthesias and Denies weakness Psychiatric Psychiatric: Reports as per HPI, Denies homicidal ideation and Denies suicidal ideation [facility] Medical History Amenorrhea, secondary (10/06/13) Anxiety disorder Asthma 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 Colpo directed [id number]. No follow-up Pap/HPV available in EMR. 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 Says has abused herion since age 10. b. NO IV DRUG USE IN FIVE MONTHS. c. Recently enrolled in the [facility] Suboxone program, recently transferred from [place] to [facility] and is at a steady state having gone through induction. d. States surveillance testing showed buprenorphine and no other opiates this past (11/25/2013). e. Reports surveillance testing negative for hepatitis and HIV. Pneumonia (12/01/13) 04/10/2018 date of conception ~ 01/03/2018. Patient was unaware she was had workup for abdominal pain and CT of abdomen showed a viable . She wishes to continue the . unplanned but desired by pt. 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 09/2020 - IV oxycodone Caregiver/Support person: No Household members: family and children Housing: apartment Do you need help understanding health information?: Rarely current occupation: Lives at home with her mother. Does crafts to occupy her time Pets and animals: Yes Pets and animals: cat(s) Sexually active: Yes (One episode of sexual intercourse approximately 2017) Do you think of yourself as: straight/heterosexual Current gender identity: female How often do you talk on the phone with friends or family?: decline to answer How often do you get together with friends or relatives?: decline to answer How often do you attend gnosticism or episcopal services?: decline to answer Do you belong to any clubs or organized social groups?: no Panel score (0-1 are the most socially isolated patients): 0 What type of physical activity do you participate in: walking Loraine/Sikh: None Do you feel safe at home: Yes Do you feel safe in your relationship?: Yes Additional Social history: Lives at home with mother. Does not work. Does crafts during the day. Female Reproductive History Menstrual control method: none History History 2 Para Hx # Term Pregnancies 0 Multiple births Hx # Pregnancies Ectopic pregnancies AB induced Hx Number of Living Children AB spontaneous 1 Past Pregnancies Del. Date GA/Weeks # Outcome Route Wgt Sex Labor Lgth Anesthesia Location Prov Complic Unknown Delivery Date: Patient transferred care to [facility] on 05/11/2018 Mildred Zuñiga Exam Const General: cooperative, healthy appearing, comfortable, no acute distress, well developed and well groomed Nutritional Appearance: average body habitus and well nourished Orientation: alert and awake Eyes General: appearance normal, both eyes and all related structures Resp Effort & Inspection: normal respiratory effort, able to speak in complete sentences and no respiratory distress Auscultation: clear to auscultation bilaterally, no rales, no rhonchi and no wheezes Cardio Rate: regular rate Rhythm: regular rhythm Heart Sounds: S1 normal and S2 normal Skin General skin exam: no rashes or lesions noted Trauma: no lacerations or abrasions Neuro General: patient alert and patient awake Cognition: normal cognition Speech: speech normal Gait: normal gait Psych Appearance: grossly normal and well kempt Mental Status: mental status grossly normal Speech and Movement: speech and movement normal Mood: congruent mood Affect: indifferent Attitude: guarded Thought Process: normal Thought Content: normal Insight: fair Judgment: fair Course Vital Signs Vital signs: Vital Signs Temperature 36.6 C 10/02/20 13:56 Pulse 109 H 10/02/20 13:56 Respiratory Rate 14 10/02/20 13:56 Blood Pressure 116/69 10/02/20 13:56 Pulse Oximetry 95 10/02/20 13:56 Temperature 36.6 C 10/02/20 13:56 Temperature Source Temporal Artery Scan 10/02/20 13:56 Pulse 109 H 10/02/20 13:56 Respiratory Rate 14 10/02/20 13:56 Respiratory Effort Non-Labored 10/02/20 14:00 Blood Pressure 116/69 10/02/20 13:56 Blood Pressure Position Sitting 10/02/20 13:56 Pulse Oximetry 95 10/02/20 13:56 Oxygen Delivery Method Room Air 10/02/20 13:56 Oxygen Flow Rate 0 10/02/20 13:56 Pain Level 8 10/02/20 13:56
== END 2020-10-02 14:45 | disposition left against medical advice (07) ==
PROVIDERS: Emergency Provider Physician Assistant; PCP Family Medicine
DX: T40.411A Poisoning by fentanyl or fentanyl analogs, accidental (unintentional), initial encounter (principal); R40.4 Transient alteration of awareness; F11.10 Opioid abuse, uncomplicated; Z53.29 Procedure and treatment not carried out because of patient's decision for other reasons
CPT/HCPCS: 99283

== ENCOUNTER 2020-10-11 13:17 | Outpatient (REF) | payer MEDICARE, MEDICAID, SELFPAY ==
[2020-10-12 15:49] LABS: COVID-19 RT-PCR UVMMC Result Negative (Negative)
== END 2020-10-11 13:18 | disposition home or self-care (01) ==
LOC: LBN 13:17
PROVIDERS: PCP Family Medicine; Visit Provider Family Medicine
DX: Z20.822 Contact with and (suspected) exposure to COVID-19 (principal)
CPT/HCPCS: U0003; U0005

== ENCOUNTER 2020-11-20 01:49 | Outpatient (CLI) | payer MEDICARE, MEDICAID, SELFPAY ==
[2020-11-20 12:52] LABS: Source Nasal/Nares
[2020-11-21 08:07] LABS: COVID-19 PCR Negative (Negative)
== END 2020-11-20 01:50 | disposition home or self-care (01) ==
LOC: LBO 01:49
PROVIDERS: PCP Family Medicine; Visit Provider Physician Assistant
DX: Z20.822 Contact with and (suspected) exposure to COVID-19 (principal); J82.81 Chronic eosinophilic pneumonia
CPT/HCPCS: 87635

== ENCOUNTER 2020-12-01 02:00 | Outpatient (CLI) | payer MEDICARE, MEDICAID, SELFPAY ==
[2020-12-01 11:22] LABS: TSH (W/Ref FT4) 0.03 uIU/mL (0.36-3.74)
[2020-12-01 12:15] LABS: FREE T4 1.56 ng/dL (0.76-1.46)
== END 2020-12-01 02:01 | disposition home or self-care (01) ==
LOC: LBO 02:01
PROVIDERS: PCP Family Medicine; Visit Provider Family Medicine
DX: E03.9 Hypothyroidism, unspecified (principal)
CPT/HCPCS: 36415; 84439; 84443

== ENCOUNTER 2020-12-11 07:17 | Emergency (ER) | payer MEDICARE, MEDICAID, SELFPAY ==
[2020-12-11] VITALS (47 sets, daily range): BP systolic 109–122; BP diastolic 70–90; PULSE 90–126; RESP 2–30; TEMP 36.7–36.8; O2SAT 92–100
--- NOTE | 2020-12-11 07:15 | RT.EKG_ITS ---
APPROVED REPORT Exam: Resting ECG Reason for Exam: drug overdose Patient Location: E HR:124 bpm ECG Measurements Heart Rate 124 AXIS AK 154 P 71 QRSd 100 QRS 79 QT 325 T 58 QTc 467 Conclusion Sinus tachycardia...rate> 99
--- NOTE | 2020-12-11 08:08 | DI.RAD_ITS ---
Exam(s) XR CHEST 2V PA LATERAL EXAM: XR CHEST 2V PA LATERAL CLINICAL HISTORY: chest pain. TECHNIQUE: 2D digital imaging was performed. COMPARISON: CR XR PORTABLE CHEST AP from 07/31/2020 FINDINGS: Heart size is normal. The mediastinum is not widened. Lungs are clear. No infiltrates nor pleural effusions. IMPRESSION: No acute pulmonary findings. DATA REPOSITORY: RADIATION DOSE DELIVERED:
--- NOTE | 2020-12-11 08:15 | DI.RAD_ITS ---
Exam(s) XR STERNUM EXAM: XR STERNUM CLINICAL HISTORY: chest pain. TECHNIQUE: 2D digital imaging was performed. COMPARISON: CR XR PORTABLE CHEST AP from 07/31/2020 FINDINGS: There is a subtle cortical irregularity on the anterior cortex of the sternum which may be a subtle n ondisplaced fracture at this level there is no soft tissue mass in the retrosternal area to suggest o bvious hematoma. IMPRESSION: Possible subtle nondisplaced sternal fracture. DATA REPOSITORY: RADIATION DOSE DELIVERED:
--- NOTE | 2020-12-11 08:17 | ED.GENADUL_ITS ---
Discharge Plan Disposition Patient Disposition: HOME Condition: Stable Discharge Details Clinical Impression: Sternal fracture, Opiate overdose, Abnormal findings on diagnostic imaging of lung, Epistaxis Primary Care Provider: Go Donahue ED Provider: Izabella Evans Home Meds and New Rx's Prescriptions: Continued prednisone 10 mg tablet 10 mg PO DAILY RF: 0 promethazine 25 mg tablet 25 mg PO Q6H PRN (Reason: nausea and vomiting) Qty: 15 RF: 1 acetaminophen [Tylenol] 325 mg tablet 975 mg PO TID PRN Qty: 90 RF: 11 ondansetron HCl 4 mg tablet 4 mg PO QID PRN (Reason: nausea and vomiting) Qty: 20 RF: 0 trazodone 100 mg tablet 200 mg PO QHS RF: 0 zolpidem [Ambien] 10 mg tablet 10 mg PO QHS PRNRF: 0 cholecalciferol (vitamin D3) 25 mcg (1,000 unit) tablet 1,000 unit PO DAILY Qty: 90 RF: 3 albuterol sulfate 3 ML solution for nebulization 3 ml UPD Q2H PRN PRNQty: 90 RF: 2 Combivent Respimat 4 GM mist 2 puff Inhalation PRN RF: 0 Spiriva Respimat 4 GM mist 2 puff Inhalation Q12H PRN RF: 0 levalbuterol tartrate [Xopenex HFA] 15 GM HFA aerosol inhaler 2 - 4 puff Inhalation Q6H PRN Qty: 1 RF: 5 montelukast [Singulair] 10 MG tablet 10 mg PO DAILY Qty: 90 RF: 4 budesonide-formoterol [Symbicort] 10.2 GM HFA aerosol inhaler 2 puff Inhalation BID Qty: 3 RF: 4 ipratropium-albuterol [DuoNeb] 0.5 mg-3 mg(2.5 mg base)/3 mL solution for nebulization 3 ml Inhalation Q6H PRN Qty: 180 RF: 3 loratadine [Claritin] 10 mg tablet 10 mg PO DAILY Qty: 90 RF: 3 omeprazole 20 mg capsule,delayed release(DR/EC) 20 mg PO DAILY Qty: 90 RF: 3 levothyroxine [Levoxyl] 75 mcg tablet 75 mcg PO DAILY Qty: 60 RF: 5 gabapentin 300 mg capsule 300 mg PO TID Qty: 90 RF: 11 fluticasone propionate 16 GM spray,suspension 1 spray NS BID PRNRF: 0 docusate sodium [Colace] 100 mg capsule 100 mg PO BID PRNRF: 0 dextroamphetamine-amphetamine [Adderall] 20 mg tablet 20 mg PO DAILY RF: 0 No Action fluvoxamine 100 mg tablet 50 mg PO BID RF: 0 diazepam [Valium] 5 mg tablet 5 mg PO BID PRNRF: 0 benzonatate 100 mg capsule 100 mg PO BID PRN (Reason: cough) Qty: 30 RF: 0 Discharge Instructions Instructions: Opioid Use Disorder (ED) Additional Instructions: You have elected to leave the emergency department without completion of your evaluation, the risks of doing so are and permanent disability. You may return to emergency department anytime if you change your mind. Please return immediately to the emergency department if you develop any new or worsening symptoms, if your condition does not improve as expected, or if you become otherwise concerned. It is extremely important that you call soon as possible to make an appointment to be seen in follow-up for this visit by your primary care doctor and your ob scrub tech. Recreational opiate use is frequently deadly, please seek treatment for opiate use disorder. Referrals: Go Donahue MD [Primary Care Provider] - Discharge Data Discharge Date/Time-TO BE ENTERED AT DEPARTURE: 12/11/20 13:24 Medical Decision Making Zahida Mena is a 30-year-old woman with a history of hypothyroidism, opioid use disorder, GERD who presented to the emergency department after being found unresponsive after smoking fentanyl. On exam Pt is well and non-toxic appearing, alert and oriented, non-focal neuro exam. Mild epistaxis from right nare. Sternal tenderness to palpation that reproduces pain. Mild ttp of the proximal right lower leg at site of IO insertion. Concern for epistaxis 2/2 trauma from nasal trumpet, possible sternal fx from bystander CPR, possible cardiac contusion, other. Exam/hx at this time not c/w pulmonary edema, acute coronary syndrome, pulmonary embolism, sepsis, acute emergent intracranial process, tibia fx. EKG obtained and non-diagnostic. Plan for continuous pulse ox monitoring, nasal clamp, sternum/chest x-ray, screening labs, IVF hydration, will continue to monitor and reassess. Plan for 4-hour observation post Narcan adminis tration. Afrin given for nosebleed, patient intermittently spitting small clots of blood, no blood from anterior nare at this point. Nasal speculum exam reveals no septal hematoma, no apparent site of bleeding. Patient requesting to defer nasal packing at this time. Sternal fracture noted on x-ray, given patient with continued tachycardia and apparent CPR prior to arrival resulting in sternal fr acture, plan for screening labs, CT chest for further eval. CT shows mild anterior sternal cortical buckle fracture and abnormal lung findings concerning for infectious etiology, fungal, septic emboli. Pt reports that these lung findings are chronic and she has been followed extensively by pulmonology at [facility] for this. Images pushed to [facility], transfer center at [facility] contacted, awaiting callback from pulmonology. Patient no longer spitting blood, denies further nosebleed. States that she wants to leave the emergency department immediately, does not want to wait for discussion with pulmonology. Patient denies pain other than the sternum. Had a lengthy discussion with patient about dangers of recreational fentanyl use. Patient verbalizes understanding, refuses discussion with control and recovery special tactics or referrals for opiate use disorder treatment. Patient states that she has Narcan at home, intranasal Narcan was also provided to her at this visit. I had a lengthy discussion with Patient regarding return to emergency department precautions, home care, and importance of outpatient follow-up. Pt verbalizes understanding of the plan and is amenable. Patient discharged to home with clear plan for outpatient follow-up. All questions were answered. Disposition decision was made weighing the risks and benefits of hospitalization versus outpatient treatment, the risk for further decompensation, and the patient's wishes. Pulmonology exhibition designer called back after Pt was discharged, stated that they had reviewed images, all findings chronic and unchanged, recommended no further intervention at this time. Medical Records Medical records reviewed: Yes I reviewed the patient's medical records. Imaging Data Radiologic Study: Attestation: I personally reviewed and interpreted this imaging study as follows: Radiologist's impression: EXAM: CT CHEST W CLINICAL HISTORY: trauma, sternal fracture, chest pain. TECHNIQUE: Multi planar reconstructions were performed. CONTRAST MATERIAL: Omnipaque 350; 75 cc COMPARISON: CT CT CHEST WO from 09/27/2020 CR XR STERNUM from 12/11/2020 CR XR STERNUM from 12/11/2020 FINDINGS: CHEST: LUNGS: There are patchy nodular densities throughout both lungs. However, there is relative sparing of the basal segments of both lower lobes there are no pleural effusions. MEDIASTINUM: There is no hilar nor mediastinal adenopathy. Visualized thyroid unremarkable.There is no evidence of mediastinal hematoma. CARDIAC: Heart size is normal. There is no pericardial effusion.Caliber of the thoracic aorta is within normal limits. There is no evidence of aortic dissection. VISUALIZED UPPER ABDOMEN: No adrenal masses spleen size normal. OSSEOUS: On the sagittal reconstructed images there is a slight buckle in the anterior cortex of the sternum. However, there is no distinct cortical break. There is no evidence of retrosternal hematoma. There are no rib fractures identified. IMPRESSION: 1. Main finding here are multiple ground-glass non cavitated small nodular infiltrates throughout both upper lobes and superior segment of both lower lobes. Also involves lingular segment and right middle lobe.No pleural effusions. No lymphadenopathy. The differential for these nodular densities most probably infectious, including Covid-19, possible septic emboli, as well as other pathology, including fungal. Less likely metastatic in this age group. 2. Mild anterior sternal cortical buckle. No complete cortical break. EXAM: XR CHEST 2V PA LATERAL CLINICAL HISTORY: chest pain. TECHNIQUE: 2D digital imaging was performed. COMPARISON: CR XR PORTABLE CHEST AP from 07/31/2020 FINDINGS: Heart size is normal. The mediastinum is not widened. Lungs are clear. No infiltrates nor pleural effusions. IMPRESSION: No acute pulmonary findings. EXAM: XR STERNUM CLINICAL HISTORY: chest pain. TECHNIQUE: 2D digital imaging was performed. COMPARISON: CR XR PORTABLE CHEST AP from 07/31/2020 FINDINGS: There is a subtle cortical irregularity on the anterior cortex of the sternum which may be a subtle nondisplaced fracture at this level there is no soft tissue mass in the retrosternal area to suggest obvious hematoma. IMPRESSION: Possible subtle nondisplaced sternal fracture. Lab Data Lab results reviewed: Yes I reviewed the patient's lab results. Labs: Laboratory Tests Range/Units 12/11/20 12/11/20 12/11/20 10:31 10:31 10:31 WBC (4.4-10.8) 10^3/uL 13.30 H RBC (3.93-5.22) 10^6/uL 4.47 Hgb (11.2-15.7) g/dL 13.3 Hct (36.0-46.0) % 41.0 MCV (80-95) fL 91.7 MCH (27.0-33.0) pg 29.8 MCHC (32.0-36.0) % 32.4 RDW (11.7-14.6) % 14.8 H Plt Count (130-400) 10^3/uL 409 H MPV (8.0-11.0) fL 9.0 Immature Gran % 0.4 Neutrophils % 82.9 Lymphocytes % 9.8 Monocytes % 6.6 Eosinophils % 0.0 Basophils % 0.3 Nucleated RBC % % 0 Absolute Neutrophils (1.2-6.7) 10^3/uL 11.03 H Absolute Lymphocytes (1.2-3.4) 10^3/uL 1.30 Absolute Monocytes (0.1-0.8) 10^3/uL 0.88 H Absolute Eosinophils (0.0-0.7) 10^3/uL 0.00 Absolute Basophils (0.0-0.2) 10^3/uL 0.04 ESR PT (9.3-11.0) sec 10.4 INR (0.9-1.1) 1.0 VBG Lactate Sodium (136-145) mmol/L 139 Potassium (3.5-5.1) mmol/L 4.3 Chloride (98-107) mmol/L 102 Carbon Dioxide (21.0-32.0) mmol/L 28.2 Anion Gap (3-11) mmol/L 8.8 BUN (7-18) mg/dL 16 Creatinine (0.55-1.02) mg/dL 1.1 H Estimated GFR/1.73 m2 (mL/min/1.73m2) 57.56 Glucose (74-106) mg/dL 72 L Calcium (8.5-10.1) mg/dL 8.9 Total Bilirubin (0.2-1.0) mg/dL 0.5 AST (15-37) U/L 24 ALT (14-59) U/L 26 Alkaline Phosphatase (46-116) U/L 76 Creatine Kinase (26-192) U/L 167 Troponin I (<0.06) ng/mL 0.06 C-Reactive Protein Total Protein (6.4-8.2) g/dL 7.7 Albumin (3.4-5.0) g/dL 4.3 COVID-19 Source SARS-CoV-2 (PCR) (Negative) Range/Units 12/11/20 12/11/20 12/11/20 11:15 11:15 11:15 WBC (4.4-10.8) 10^3/uL RBC (3.93-5.22) 10^6/uL Hgb (11.2-15.7) g/dL Hct (36.0-46.0) % MCV (80-95) fL MCH (27.0-33.0) pg MCHC (32.0-36.0) % RDW (11.7-14.6) % Plt Count (130-400) 10^3/uL MPV (8.0-11.0) fL Immature Gran % Neutrophils % Lymphocytes % Monocytes % Eosinophils % Basophils % Nucleated RBC % % Absolute Neutrophils (1.2-6.7) 10^3/uL Absolute Lymphocytes (1.2-3.4) 10^3/uL Absolute Monocytes (0.1-0.8) 10^3/uL Absolute Eosinophils (0.0-0.7) 10^3/uL Absolute Basophils (0.0-0.2) 10^3/uL ESR Cancelled PT (9.3-11.0) sec INR (0.9-1.1) VBG Lactate Cancelled Sodium (136-145) mmol/L Potassium (3.5-5.1) mmol/L Chloride (98-107) mmol/L Carbon Dioxide (21.0-32.0) mmol/L Anion Gap (3-11) mmol/L BUN (7-18) mg/dL Creatinine (0.55-1.02) mg/dL Estimated GFR/1.73 m2 (mL/min/1.73m2) Glucose (74-106) mg/dL Calcium (8.5-10.1) mg/dL Total Bilirubin (0.2-1.0) mg/dL AST (15-37) U/L ALT (14-59) U/L Alkaline Phosphatase (46-116) U/L Creatine Kinase (26-192) U/L Troponin I (<0.06) ng/mL C-Reactive Protein Cancelled Total Protein (6.4-8.2) g/dL Albumin (3.4-5.0) g/dL COVID-19 Source SARS-CoV-2 (PCR) (Negative) Range/Units 12/11/20 12/11/20 11:21 12:47 WBC (4.4-10.8) 10^3/uL RBC (3.93-5.22) 10^6/uL Hgb (11.2-15.7) g/dL Hct (36.0-46.0) % MCV (80-95) fL MCH (27.0-33.0) pg MCHC (32.0-36.0) % RDW (11.7-14.6) % Plt Count (130-400) 10^3/uL MPV (8.0-11.0) fL Immature Gran % Neutrophils % Lymphocytes % Monocytes % Eosinophils % Basophils % Nucleated RBC % % Absolute Neutrophils (1.2-6.7) 10^3/uL Absolute Lymphocytes (1.2-3.4) 10^3/uL Absolute Monocytes (0.1-0.8) 10^3/uL Absolute Eosinophils (0.0-0.7) 10^3/uL Absolute Basophils (0.0-0.2) 10^3/uL ESR PT (9.3-11.0) sec INR (0.9-1.1) VBG Lactate Sodium (136-145) mmol/L Potassium (3.5-5.1) mmol/L Chloride (98-107) mmol/L Carbon Dioxide (21.0-32.0) mmol/L Anion Gap (3-11) mmol/L BUN (7-18) mg/dL Creatinine (0.55-1.02) mg/dL Estimated GFR/1.73 m2 (mL/min/1.73m2) Glucose (74-106) mg/dL Calcium (8.5-10.1) mg/dL Total Bilirubin (0.2-1.0) mg/dL AST (15-37) U/L ALT (14-59) U/L Alkaline Phosphatase (46-116) U/L Creatine Kinase (26-192) U/L Troponin I (<0.06) ng/mL Cancelled C-Reactive Protein Total Protein (6.4-8.2) g/dL Albumin (3.4-5.0) g/dL COVID-19 Source Nasal/Nares SARS-CoV-2 (PCR) (Negative) Negative HPI General Mode of arrival: EMS . Date/Time Provider Initiated Documentation: 12/11/20 07:46 . Limitations to Documentation: no limitations . Information obtained by: patient, EMS, RN notes reviewed and old records reviewed . HPI Narrative: Zahida Mena is a 30-year-old woman with a history of hypothyroidism, opioid use disorder, GERD who presented to the emergency department after being found unresponsive after smoking fentanyl. Per EMS, a bystander performed CPR on the patient after she became unresponsive, however that bystander was not at the scene of time of EMS arrival, and EMS was made aware by another person. EMS placed nasal trumpet, gave 2 mg Narcan intranasally x2, at which point patient became alert and oriented. An IO was also placed in the right lower extremity. Patient reports that prior to smoking fentanyl this morning she had no pain. Patient reports that she has pain in her breastbone since waking up after Narcan, and also pain at IO site. She denies any other pain. She denies fever, shortness of breath, vomiting, diarrhea, numbness, weakness, rash. She reports that she has chronic cough that is unchanged from baseline. Patient reports that she would like to leave the emergency department as soon as possible. Related Data Home Medications Medication Instructions Recorded Confirmed albuterol sulfate 3 ml UPD Q2H PRN PRN #90 vial 10/27/13 12/22/20 Combivent Respimat 2 puff INHALATION PRN inhaler 06/20/16 12/22/20 Spiriva Respimat 2 puff INHALATION Q12H PRN 06/20/16 12/22/20 levalbuterol tartrate [Xopenex HFA] 2 - 4 puff INHALATION Q6H PRN #1 09/02/16 12/22/20 inhaler montelukast [Singulair] 10 mg PO DAILY #90 tab-cap 10/02/16 12/22/20 budesonide-formoterol [Symbicort] 2 puff INHALATION BID #3 inhaler 03/19/17 12/22/20 ipratropium 0.5 mg-albuterol 3 mg 3 ml INHALATION Q6H PRN #180 ml 10/23/17 12/22/20 (2.5 mg base)/3 mL nebulization soln ondansetron HCl 4 mg tablet 4 mg PO QID PRN #20 tab 03/04/18 12/22/20 prednisone 10 mg tablet 10 mg PO DAILY 02/02/19 12/22/20 promethazine 25 mg tablet 25 mg PO Q6H PRN #15 tab 02/02/19 12/22/20 fluticasone propionate 1 spray NS BID PRN 05/31/19 12/22/20 acetaminophen 325 mg tablet 975 mg PO TID PRN #90 tab 12/03/19 12/22/20 loratadine 10 mg tablet 10 mg PO DAILY #90 tab 05/02/20 12/22/20 omeprazole 20 mg capsule,delayed 20 mg PO DAILY #90 tab-cap 08/18/20 12/22/20 release dextroamphetamine-amphetamine 20 20 mg PO DAILY tab 10/11/20 12/22/20 mg tablet docusate sodium 100 mg capsule 100 mg PO BID PRN 10/11/20 12/22/20 trazodone 100 mg tablet 200 mg PO QHS tab 10/11/20 12/22/20 cholecalciferol (vitamin D3) 25 1,000 unit PO DAILY #90 tab-cap 11/28/20 12/22/20 mcg (1,000 unit) tablet zolpidem 10 mg tablet 10 mg PO QHS PRN 11/28/20 12/22/20 levothyroxine 75 mcg tablet 75 mcg PO DAILY #60 tab 12/01/20 12/22/20 gabapentin 300 mg capsule 300 mg PO TID #90 cap 12/05/20 12/22/20 benzonatate 100 mg capsule 100 mg PO BID PRN #30 cap 12/21/20 12/22/20 diazepam 5 mg tablet 5 mg PO BID PRN 12/22/20 12/22/20 fluvoxamine 100 mg tablet 50 mg PO BID tab 12/22/20 12/22/20 Previous Rx's Medication Instructions Recorded budesonide-formoterol [Symbicort] 2 puff INHALATION BID #3 inhaler 03/19/17 ipratropium 0.5 mg-albuterol 3 mg 3 ml INHALATION Q6H PRN #180 ml 10/23/17 (2.5 mg base)/3 mL nebulization soln ondansetron HCl 4 mg tablet 4 mg PO QID PRN #20 tab 03/04/18 promethazine 25 mg tablet 25 mg PO Q6H PRN #15 tab 02/02/19 acetaminophen 325 mg tablet 975 mg PO TID PRN #90 tab 12/03/19 loratadine 10 mg tablet 10 mg PO DAILY #90 tab 05/02/20 omeprazole 20 mg capsule,delayed 20 mg PO DAILY #90 tab-cap 08/18/20 release cholecalciferol (vitamin D3) 25 1,000 unit PO DAILY #90 tab-cap 11/28/20 mcg (1,000 unit) tablet levothyroxine 75 mcg tablet 75 mcg PO DAILY #60 tab 12/01/20 gabapentin 300 mg capsule 300 mg PO TID #90 cap 12/05/20 benzonatate 100 mg capsule 100 mg PO BID PRN #30 cap 12/21/20 Allergies Allergy/AdvReac Type Severity Reaction Status Date / Time ibuprofen [From Advil] Allergy Mild ADVIL ONLY Verified 12/22/20 16:01 SKIN RASH amoxicillin Allergy Verified 12/22/20 16:01 diphenhydramine Allergy Hives Verified 12/22/20 16:01 erythromycin base Allergy SKIN RASH Verified 12/22/20 16:01 metronidazole [From Flagyl] Allergy SKIN RASH Verified 12/22/20 16:01 Metronidazole HCl Allergy SKIN RASH Verified 12/22/20 16:01 [From Flagyl] penicillin V [Penicillin V] Allergy Verified 12/22/20 16:01 Sulfa (Sulfonamide Allergy Hives Verified 12/22/20 16:01 Antibiotics) General Stated Complaint: DrugWithdr/MAT BART: 3 Review of Systems Narrative: Constitutional: denies fevers Eyes: denies eye pain ENT: denies ear pain, dental pain, sore throat, reports bloody nose Cardiovascular: denies edema, reports central chest pain Respiratory: denies SOB, cough GI: denies abdominal pain, vomiting, diarrhea : denies flank pain MSK: denies back pain, neck pain, arthralgias, reports pain in proximal right lower leg at site of IO insertion Skin: denies rash Neuro: denies headaches, numbness, weakness PFSH Medical History Amenorrhea, secondary (10/06/13) Anxiety disorder Asthma 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 Colpo directed [id number]. No follow-up Pap/HPV available in EMR. 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 b. NO IV DRUG USE IN FIVE MONTHS. c. Recently enrolled in the [facility] program, recently transferred from [place] to [facility] and is at a steady state having gone through induction. d. States surveillance testing showed buprenorphine and no other opiates this past (11/25/2013). e. Reports surveillance testing negative for hepatitis and HIV. Left-sided thoracic back pain Pneumonia (12/01/13) 04/10/2018 date of conception ~ 01/03/2018. Patient was unaware she was had workup for abdominal pain and CT of abdomen showed a viable preg steve. She wishes to continue the . unplanned but desired by pt. 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 09/2020 - IV oxycodone Caregiver/Support person: No Household members: family and children Housing: apartment Do you need help understanding health information?: Rarely current occupation: Lives at home with her mother. Does crafts to occupy her time Pets and animals: Yes Pets and animals: cat(s) Sexually active: Yes (One episode of sexual intercourse approximately 2017) Do you think of yourself as: straight/heterosexual Current gender identity: female How often do you talk on the phone with friends or family?: decline to answer How often do you get together with friends or relatives?: decline to answer How often do you attend jainism or mandaeism services?: decline to answer Do you belong to any clubs or organized social groups?: no Panel score (0-1 are the most socially isolated patients): 0 What type of physical activity do you participate in: walking Loraine/Lutheran: None Do you feel safe at home: Yes Do you feel safe in your relationship?: Yes Additional Social history: Lives at home with mother. Does not work. Does crafts during the day. Female Reproductive History Menstrual control method: none History History 2 Para Hx # Term Pregnancies 0 Multiple births Hx # Pregnancies Ectopic pregnancies AB induced Hx Number of Living Children AB spontaneous 1 Past Pregnancies Del. Date GA/Weeks # Outcome Route Wgt Sex Labor Lgth Anesthes ia Location Prov Complic Unknown Delivery Date: Patient transferred care to [facility] on 05/11/2018 Mildred Zuñiga Exam Narrative Exam Narrative: Constitutional: well and [id number], pleasant, conversing normally HENT: head atraumatic/normocephalic/normal inspection, mucous membranes moist, Pt repeatedly dabbing at right nostril, with small amt of blood on tissue, no intra-oral lesion Eyes: conjunctiva normal, sclera normal, pupils 3mm b/l Neck: no stridor, normal ROM, trachea midline Chest: normal inspection, chest TTP that reproduces pain over sternum without deformity, crepitus, overlying skin changes, no other chest TTP Resp: normal work of breathing, LCTAB Cardio: normal rate, normal rhythm, no murmur appreciated GI: abdomen soft, non-tender, non-distended Back: normal inspection, no rash Skin: warm, dry, normal color, no rash Neuro: alert, not altered, grossly non-focal, normal tone Ext: no edema, no posterior calf TTP, right lower leg with mild focal TTP over IO site (dressing in place), no bleeding, no deformity, Pt bearng weight on RLE without issue Psych: normal mood, normal affect, normal behavior Course Vital Signs Vital signs: Vital Signs Temperature 36.8 C 12/11/20 07:20 Pulse 125 H 12/11/20 07:20 Respiratory Rate 13 12/11/20 07:20 Blood Pressure 122/83 12/11/20 07:20 Pulse Oximetry 97 12/11/20 07:20 Temperature 36.8 C 12/11/20 07:20 Temperature Source Temporal Artery Scan 12/11/20 07:20 Pulse 125 H 12/11/20 07:20 Respiratory Rate 13 12/11/20 07:20 Respiratory Effort Non-Labored 12/11/20 07:24 Respiratory Pattern Normal 12/11/20 07:24 Blood Pressure 122/83 12/11/20 07:20 Pulse Oximetry 97 12/11/20 07:20 Oxygen Delivery Method Room Air 12/11/20 07:20 Oxygen Flow Rate 0 12/11/20 07:20 Pain Level 9 12/11/20 07:20
[2020-12-11] MEDS: Oxymetazolone 0.05% SPRAY 15 ML BTL NS (09:38)
[2020-12-11] MEDS: Acetaminophen 500 MG TAB 1000 MG PO (10:01)
[2020-12-11 10:39] LABS: Abs Immature Grans 0.05 10^3/uL (0.0-0.06); Absolute Basophil Count 0.04 10^3/uL (0.0-0.2); Absolute Monocyte Count 0.88 10^3/uL (0.1-0.8); Basophils % 0.3; HGB 13.3 g/dL (11.2-15.7); Immature Grans % 0.4; Lymphocytes % 9.8; MCH 29.8 pg (27.0-33.0); MCHC 32.4 % (32.0-36.0); MCV 91.7 fL (80-95); Monocytes % 6.6; Neutrophils % 82.9; Nucleated RBC 0 %; Platelet Count 409 10^3/uL (130-400); RBC 4.47 10^6/uL (3.93-5.22); RDW 14.8 % (11.7-14.6); RDW-SD 50.1 fL
[2020-12-11 10:40] LABS: Absolute Neutrophil Count 11.03 10^3/uL (1.2-6.7)
[2020-12-11] MEDS: Omnipaque 350 MG/ML 100 ML BTL 70 ML IJ (10:45)
[2020-12-11] MEDS: Normal Saline - Diluent 50 ML VIAL IV (10:47)
[2020-12-11 10:50] LABS: Prothrombin Time 10.4 sec (9.3-11.0)
[2020-12-11] MEDS: Normal Saline 1,000 ML 1000 ML IV (10:50)
--- NOTE | 2020-12-11 10:50 | DI.CT_ITS ---
Exam(s) CT CHEST W EXAM: CT CHEST W CLINICAL HISTORY: trauma, sternal fracture, chest pain. TECHNIQUE: Multi planar reconstructions were performed. CONTRAST MATERIAL: Omnipaque 350; 75 cc COMPARISON: CT CT CHEST WO from 09/27/2020 CR XR STERNUM from 12/11/2020 CR XR STERNUM from 12/11/2020 FINDINGS: CHEST: LUNGS: There are patchy nodular densities throughout both lungs. However, there is relative sparing of the basal segments of both lower lobes there are no pleural effusions. MEDIASTINUM: There is no hilar nor mediastinal adenopathy. Visualized thyroid unremarkable.There is n o evidence of mediastinal hematoma. CARDIAC: Heart size is normal. There is no pericardial effusion.Caliber of the thoracic aorta is wit hin normal limits. There is no evidence of aortic dissection. VISUALIZED UPPER ABDOMEN: No adrenal masses spleen size normal. OSSEOUS: On the sagittal reconstructed images there is a slight buckle in the anterior cortex of the sternum. However, there is no distinct cortical break. There is no evidence of retrosternal hematom a. There are no rib fractures identified. IMPRESSION: 1. Main finding here are multiple ground-glass non cavitated small nodular infiltrates throughout bot h upper lobes and superior segment of both lower lobes. Also involves lingular segment and right mid dle lobe.No pleural effusions. No lymphadenopathy. The differential for these nodular densities mos t probably infectious, including Covid-19, possible septic emboli, as well as other pathology, includ ing fungal. Less likely metastatic in this age group. 2. Mild anterior sternal cortical buckle. No complete cortical break. RADIATION DOSE DELIVERED: 418.7mGy.cm Total DLP DATA REPOSITORY: All CT scans at this facility are submitted to the National Radiology Data Registry (NRDR) Dose Index Registry (DIR) with the [employer] (ACR). RADIATION OPTIMIZATION: All CT scans at this facility use at least one of these dose optimization te chniques: automated exposure control; mA and/or kV adjustment per patient size (includes targeted exa ms where dose is matched to clinical indication); or iterative reconstruction.
[2020-12-11 10:55] LABS: ALT 26 U/L (14-59); AST 24 U/L (15-37); Albumin 4.3 g/dL (3.4-5.0); Alkaline Phosphatase 76 U/L (46-116); Anion Gap 8.8 mmol/L (3-11); BUN 16 mg/dL (7-18); Bilirubin, Total 0.5 mg/dL (0.2-1.0); CO2 28.2 mmol/L (21.0-32.0); CREATININE 1.1 mg/dL (0.55-1.02); Calcium 8.9 mg/dL (8.5-10.1); Chloride 102 mmol/L (98-107); Creatine Kinase 167 U/L (26-192); Estimated GFR 57.56 (mL/min/1.73m2); Glucose 72 mg/dL (74-106); Potassium 4.3 mmol/L (3.5-5.1); Sodium 139 mmol/L (136-145); Total Protein 7.7 g/dL (6.4-8.2); Troponin I 0.06 ng/mL (<0.06)
[2020-12-11 11:29] LABS: Source Nasal/Nares
[2020-12-11] MEDS: Ketorolac 15 MG/ML VIAL IVP (11:46)
[2020-12-11 12:21] LABS: COVID-19 PCR Negative (Negative)
== END 2020-12-11 13:24 | disposition home or self-care (01) ==
PROVIDERS: Emergency Provider Student in an Organized Health Care Education/Training Program; PCP Family Medicine
DX: T40.411A Poisoning by fentanyl or fentanyl analogs, accidental (unintentional), initial encounter (principal); S22.22XA Fracture of body of sternum, initial encounter for closed fracture; X50.9XXA Other and unspecified overexertion or strenuous movements or postures, initial encounter; R04.0 Epistaxis; R91.8 Other nonspecific abnormal finding of lung field; Z53.29 Procedure and treatment not carried out because of patient's decision for other reasons; Z20.822 Contact with and (suspected) exposure to COVID-19; Z03.818 Encounter for observation for suspected exposure to other biological agents ruled out
CPT/HCPCS: 30901; 36415; 80053; 81025; 82550; 85652; 87040; 87635; 93005; 96361; 96374; 99285; 71046; 71120; 71260; 83605; 84484; 85025; 85610; 86140; 93010; J1885; J3490

== ENCOUNTER 2021-01-12 18:38 | Outpatient (REF) | payer MEDICARE, MEDICAID, SELFPAY ==
[2021-01-14 17:28] LABS: COVID-19 RT-PCR UVMMC Result Negative (Negative)
== END 2021-01-12 18:39 | disposition home or self-care (01) ==
LOC: LBN 18:38
PROVIDERS: PCP Family Medicine; Visit Provider Family Medicine
DX: Z20.822 Contact with and (suspected) exposure to COVID-19 (principal)
CPT/HCPCS: U0003

== ENCOUNTER 2021-01-15 03:18 | Outpatient (CLI) | payer MEDICARE, MEDICAID, SELFPAY ==
[2021-01-15 12:35] LABS: HCT 40.7 % (36.0-46.0); HGB 13.4 g/dL (11.2-15.7); MCH 30.1 pg (27.0-33.0); MCHC 32.9 % (32.0-36.0); MCV 91.5 fL (80-95); MPV 8.5 fL (8.0-11.0); Platelet Count 402 10^3/uL (130-400); RBC 4.45 10^6/uL (3.93-5.22); RDW 14.3 % (11.7-14.6); RDW-SD 48.3 fL; WBC 7.66 10^3/uL (4.4-10.8)
[2021-01-15 14:14] LABS: ALT 19 U/L (14-59); AST 9 U/L (15-37); Albumin 4.2 g/dL (3.4-5.0); Alkaline Phosphatase 62 U/L (46-116); Anion Gap 8.7 mmol/L (3-11); BUN 12 mg/dL (7-18); Bilirubin, Total 0.4 mg/dL (0.2-1.0); CO2 25.3 mmol/L (21.0-32.0); CREATININE 1.1 mg/dL (0.55-1.02); Calcium 8.9 mg/dL (8.5-10.1); Chloride 102 mmol/L (98-107); Creatine Kinase 45 U/L (26-192); Estimated GFR 57.56 (mL/min/1.73m2); FREE T4 1.66 ng/dL (0.76-1.46); Glucose 134 mg/dL (74-106); Sodium 136 mmol/L (136-145); TSH 0.03 uIU/mL (0.36-3.74); Total Protein 7.1 g/dL (6.4-8.2)
== END 2021-01-15 03:19 | disposition home or self-care (01) ==
LOC: LBO 03:18
PROVIDERS: PCP Family Medicine; Visit Provider Family Medicine
DX: I10 Essential (primary) hypertension (principal); E03.9 Hypothyroidism, unspecified
CPT/HCPCS: 36415; 80053; 82550; 85027; 84439; 84443

== ENCOUNTER 2021-02-07 15:18 | Outpatient (REF) | payer MEDICARE, MEDICAID, SELFPAY ==
[2021-02-09 11:45] LABS: COVID-19 RT-PCR UVMMC Result Negative (Negative)
== END 2021-02-07 15:19 | disposition home or self-care (01) ==
LOC: LBN 15:18
PROVIDERS: PCP Family Medicine; Visit Provider Family Medicine
DX: Z20.822 Contact with and (suspected) exposure to COVID-19 (principal)
CPT/HCPCS: U0003; U0005

== ENCOUNTER 2021-03-12 01:19 | Outpatient (CLI) | payer MEDICARE, MEDICAID, SELFPAY ==
[2021-03-12 13:00] VITALS: BP 126/86; PULSE 102; RESP 20; TEMP 37.8; O2SAT 95
[2021-03-12] MEDS: Normal Saline 250 ML 30 ML IV (13:17)
[2021-03-12] MEDS: Normal Saline Flush 10 ML SYR IVP (13:17)
[2021-03-12 13:20] VITALS: BP 103/70; PULSE 108; RESP 22; TEMP 36.6; O2SAT 100
[2021-03-12 14:30] VITALS: BP 135/85; PULSE 106; RESP 20; TEMP 36.8; O2SAT 98
== END 2021-03-12 01:20 | disposition home or self-care (01) ==
LOC: INF 01:20
PROVIDERS: PCP Family Medicine; Visit Provider Family Medicine
DX: U07.1 COVID-19 (principal)
CPT/HCPCS: 96365; Q0047

== ENCOUNTER 2021-03-22 02:03 | Outpatient (CLI) | payer MEDICARE, MEDICAID, SELFPAY ==
--- NOTE | 2021-03-22 06:45 | DI.CT_ITS ---
Exam(s) CT SINUS WO EXAM: CT SINUS WO CLINICAL HISTORY: rt polyp, chronic sinusitis,J33.9,J32.9. TECHNIQUE: Imaging Protocol: Axial computed tomography images with coronal and sagittal reformatted images were created and reviewed. No IV Contrast COMPARISON: No exams were available for comparison FINDINGS: MAXILLARY SINUSES: There is circumferential mucosal thickening in both maxillary sinuses, relatively symmetrical. There is a small amount of fluid also noted in both maxillary sinuses. There is no evidence of bone dehiscence. OSTIOMEATAL UNITS: The left ostiomeatal unit is patent. There is mucosal thickening at the level of the ostium of the right ostiomeatal unit. ETHMOIDAL AIR CELLS: Minimal mucosal thickening. SPHENOID SINUSES: Mild mucosal thickening-fluid in the left sphenoid sinus. Right sphenoid sinus joaquin ears unremarkable. FRONTAL SINUSES: Hypoplastic/not developed NASAL SEPTUM AND TURBINATES:Nasal septum is midline with no evidence of significant nasal septal spur . Right middle turbinate is absent. Posteriorly there is an AP orientated longtitudinal structure extending to the posterior aspect of th e nasopharynx on the right side, this measuring 2 cm length by approximately 0.3 cm wide. This is in contact with the right-side of the posterior nasal septum. IMPRESSION: 1. Maxillary sinus disease as described above, relatively symmetrical. 2. Probable surgical absence of the right middle turbinate. There is a tubular density located pos teriorly at the level of the right-side of the nasopharynx. This extends between the posterior aspec t of the nasal septum and the right-side of the nasopharynx. Recommend direct visualization-endoscop y. 3.The frontal sinuses are noted to be poorly developed. RADIATION DOSE DELIVERED: 110.39mGy.cm Total DLP DATA REPOSITORY: All CT scans at this facility are submitted to the National Radiology Data Registry (NRDR) Dose Index Registry (DIR) with the [employer] (ACR). RADIATION OPTIMIZATION: All CT scans at this facility use at least one of these dose optimization te chniques: automated exposure control; mA and/or kV adjustment per patient size (includes targeted exa ms where dose is matched to clinical indication); or iterative reconstruction.
== END 2021-03-22 02:23 ==
PROVIDERS: PCP Family Medicine; Visit Provider Otolaryngology
DX: J32.0 Chronic maxillary sinusitis (principal); J34.89 Other specified disorders of nose and nasal sinuses
CPT/HCPCS: 70486

== ENCOUNTER 2021-03-23 02:22 | Outpatient (CLI) | payer MEDICARE, MEDICAID, SELFPAY ==
[2021-03-23 13:14] LABS: Bilirubin Negative (Negative); Blood Negative (Negative); Clarity Clear (Clear); Glucose Negative (Negative); Ketones Negative (Negative); Leukocyte Esterase Negative (Negative); Nitrite Negative (Negative); Specific Gravity 1.015 (1.005-1.025); Urobilinogen 0.2 EU/dL (Up TO 0.2)
[2021-03-23 13:33] LABS: COMMENT (LAB VIEW ONLY) 18.57 mg/dL; PROTEIN < 6.0 mg/dL
[2021-03-23 13:35] LABS: COMMENT (LAB VIEW ONLY) 17.82 mg/dL
[2021-03-23 14:24] LABS: Albumin 3.9 g/dL (3.4-5.0); Anion Gap 9.9 mmol/L (3-11); BUN 8 mg/dL (7-18); CO2 24.1 mmol/L (21.0-32.0); CREATININE 0.8 mg/dL (0.55-1.02); Calcium 8.8 mg/dL (8.5-10.1); Chloride 104 mmol/L (98-107); Potassium 4.5 mmol/L (3.5-5.1); Sodium 138 mmol/L (136-145)
[2021-03-23 14:36] LABS: TSH (W/Ref FT4) 0.09 uIU/mL (0.36-3.74)
[2021-03-23 14:51] LABS: PHOSPHORUS 3.6 mg/dL (2.6-4.7)
[2021-03-23 14:58] LABS: FREE T4 1.12 ng/dL (0.76-1.46)
[2021-03-26 02:46] LABS: Vitamin D 25 Total 47.4 ng/mL (30-100)
[2021-03-26 11:26] LABS: Parathyroid Hormone,Intact 44 pg/mL (19-88)
== END 2021-03-23 02:23 | disposition home or self-care (01) ==
LOC: LBO 02:22
PROVIDERS: PCP Family Medicine; Visit Provider Internal Medicine
DX: N03.2 Chronic nephritic syndrome with diffuse membranous glomerulonephritis (principal); N06.2 Isolated proteinuria with diffuse membranous glomerulonephritis; E83.52 Hypercalcemia; E03.9 Hypothyroidism, unspecified
CPT/HCPCS: 36415; 80051; 82306; 84520; 81003; 82040; 82043; 82310; 82565; 82570; 83970; 84100; 84156; 84439; 84443

== ENCOUNTER 2021-05-29 01:48 | Outpatient (CLI) | payer MEDICARE, MEDICAID, SELFPAY | END 2021-05-29 01:49 | disposition home or self-care (01) | LOC: LBO 01:49 | PROVIDERS: PCP Family Medicine; Visit Provider Family Medicine ==

== ENCOUNTER 2021-06-28 03:43 | Outpatient (CLI) | payer MEDICARE, MEDICAID, SELFPAY | END 2021-06-28 03:44 | disposition home or self-care (01) | LOC: LOS 03:44 | PROVIDERS: PCP Family Medicine; Visit Provider Family Medicine ==

== ENCOUNTER → 2021-07-06 00:30 | Outpatient (CLI) | payer MEDICARE, MEDICAID, SELFPAY ==
--- NOTE | 2021-07-06 15:30 | DI.CT_ITS ---
Exam(s) CT ABDOMEN PELVIS WO EXAM: CT ABDOMEN PELVIS WO CLINICAL HISTORY: FEMORAL HERNIA, RT, WO OBSTRUCTION OR GANGRENE, K41.90. TECHNIQUE: Imaging Protocol: Axial computed tomography images with coronal and sagittal reformatted images were created and reviewed. Oral: yes / COMPARISON: CT CT ABDOMEN PELVIS W from 12/03/2019 FINDINGS: ABDOMEN: Lung Bases: Normal where visualized. Liver: Normal density. No measurable mass. Gallbladder and biliary tract: Question of a gallstone. No gallbladder wall thickening. No biliary dilation. Pancreas: Normal density, no abnormal calcifications or inflammatory process. Spleen: Normal. Kidneys: Normal size, contour and axis. No radiodense stones or obstructive uropathy. No masses seen. Adrenal glands: No masses seen. Lymph nodes: Within normal limits. Abdominal Aorta: Abdominal portion non-dilated. PELVIS: Bladder: Symmetric distention, no gross wall thickening. Bowel: No obstruction or bowel wall thickening. Peritoneal cavity: No ascites, collection or mesenteric inflammatory response. Reproductive organs: Retroverted uterus. Bones: Within normal limits. Soft tissues: Small fatty containing right femoral hernia. No anterior abdominal wall hernia is seen . IMPRESSION: Small fatty containing right femoral hernia. RADIATION DOSE DELIVERED: 527.23mGy.cm Total DLP DATA REPOSITORY: All CT scans at this facility are submitted to the National Radiology Data Registry (NRDR) Dose Index Registry (DIR) with the [employer] (ACR). RADIATION OPTIMIZATION: All CT scans at this facility use at least one of these dose optimization te chniques: automated exposure control; mA and/or kV adjustment per patient size (includes targeted exa ms where dose is matched to clinical indication); or iterative reconstruction.
== END ==
PROVIDERS: PCP Family Medicine; Visit Provider Surgery
DX: K41.90 Unilateral femoral hernia, without obstruction or gangrene, not specified as recurrent (principal)
CPT/HCPCS: 74176

== ENCOUNTER 2021-07-06 16:00 | Outpatient (REF) | payer MEDICARE, MEDICAID, SELFPAY ==
[2021-07-09 15:22] LABS: Chlamydia Result Negative (Negative); GC Result Negative (Negative)
== END 2021-07-06 16:01 | disposition home or self-care (01) ==
LOC: LBN 16:00
PROVIDERS: PCP Family Medicine; Visit Provider Nurse Practitioner Family
DX: Z11.3 Encounter for screening for infections with a predominantly sexual mode of transmission (principal); Z72.89 Other problems related to lifestyle
CPT/HCPCS: 87491; 87591

== ENCOUNTER 2021-07-12 02:45 | Outpatient (CLI) | payer MEDICARE, MEDICAID, SELFPAY ==
[2021-07-12 10:05] LABS: HCT 45.4 % (36.0-46.0); HGB 14.9 g/dL (11.2-15.7); MCH 30.8 pg (27.0-33.0); MCHC 32.8 % (32.0-36.0); MCV 94 fL (80-95); MPV 8.2 fL (8.0-11.0); Platelet Count 587 10^3/uL (130-400); RBC 4.83 10^6/uL (3.93-5.22); RDW 13.7 % (11.7-14.6); RDW-SD 46.9 fL; WBC 17.15 10^3/uL (4.4-10.8)
[2021-07-12 11:20] LABS: ALT 42 U/L (14-59); AST 28 U/L (15-37); Albumin 4.3 g/dL (3.4-5.0); Alkaline Phosphatase 133 U/L (46-116); BUN 8 mg/dL (7-18); Bilirubin, Total 0.4 mg/dL (0.2-1.0); Calcium 9.3 mg/dL (8.5-10.1); Chloride 99 mmol/L (98-107); Glucose 91 mg/dL (74-106); Potassium 3.4 mmol/L (3.5-5.1); Sodium 137 mmol/L (136-145); Total Protein 7.9 g/dL (6.4-8.2)
[2021-07-13 09:42] LABS: Hepatitis B Surface Ag Negative (Negative)
[2021-07-13 10:13] LABS: Hepatitis C Ab w Rflx HCV PCR Negative (Negative)
[2021-07-13 10:24] LABS: HIV-1/2 Ag & Ab Screen Negative (Negative)
[2021-07-14 14:29] LABS: Syphilis IgG w/Reflex Nonreactive (Nonreactive)
== END 2021-07-12 02:46 | disposition home or self-care (01) ==
LOC: LBO 02:45
PROVIDERS: Nurse Practitioner Family; PCP Family Medicine; Visit Provider Family Medicine
DX: R10.9 Unspecified abdominal pain (principal); R53.83 Other fatigue; Z11.3 Encounter for screening for infections with a predominantly sexual mode of transmission; Z11.59 Encounter for screening for other viral diseases; Z11.4 Encounter for screening for human immunodeficiency virus [HIV]; Z01.84 Encounter for antibody response examination
CPT/HCPCS: 36415; 80053; 85027; 86803; 87340; 87389; 86780

== ENCOUNTER 2021-07-30 02:57 | Outpatient (CLI) | payer MEDICARE, MEDICAID, SELFPAY ==
[2021-07-30 12:21] LABS: Abs Immature Grans 0.08 10^3/uL (0.0-0.06); Absolute Basophil Count 0.07 10^3/uL (0.0-0.2); Absolute Lymphocyte Count 0.84 10^3/uL (1.2-3.4); Basophils % 0.6; HCT 39.5 % (36.0-46.0); HGB 13.3 g/dL (11.2-15.7); Immature Grans % 0.7; Lymphocytes % 7.1; MCH 30.6 pg (27.0-33.0); MCHC 33.7 % (32.0-36.0); MCV 91 fL (80-95); MPV 8.3 fL (8.0-11.0); Monocytes % 3.6; Platelet Count 644 10^3/uL (130-400); RBC 4.35 10^6/uL (3.93-5.22); RDW 13.5 % (11.7-14.6); RDW-SD 44.6 fL; WBC 11.83 10^3/uL (4.4-10.8)
[2021-07-30 12:30] LABS: Absolute Monocyte Count 0.43 10^3/uL (0.1-0.8); Absolute Neutrophil Count 10.41 10^3/uL (1.2-6.7)
[2021-07-30 12:56] LABS: ALT 32 U/L (14-59); AST 21 U/L (15-37); Albumin 3.6 g/dL (3.4-5.0); Alkaline Phosphatase 112 U/L (46-116); Anion Gap 9.2 mmol/L (3-11); BUN 13 mg/dL (7-18); Bilirubin, Total 0.3 mg/dL (0.2-1.0); CO2 24.8 mmol/L (21.0-32.0); CREATININE 0.8 mg/dL (0.55-1.02); Calcium 8.4 mg/dL (8.5-10.1); Chloride 101 mmol/L (98-107); Glucose 120 mg/dL (74-106); Potassium 3.6 mmol/L (3.5-5.1); Sodium 135 mmol/L (136-145); Total Protein 7.2 g/dL (6.4-8.2)
[2021-07-31 09:50] LABS: IgA 219 mg/dL (85-499); IgG 977 mg/dL (610-1,616); IgM 149 mg/dL (35-242)
[2021-07-31 13:51] LABS: 4/8 Ratio 2.31 (>=0.90); Absolute CD3 645 Cells/uL (840-2,669); Absolute CD8 194 Cells/uL (154-1,097); CD3 73 % (56-84); CD4 51 % (31-64); CD8 22 % (9-39)
[2021-07-31 18:13] LABS: Aspergillus Fumigatus IgE <0.35 kU/L
[2021-08-01 08:00] LABS: IgE 98 IU/mL (<158)
== END 2021-07-30 02:58 | disposition home or self-care (01) ==
LOC: LOS 02:57
PROVIDERS: Student in an Organized Health Care Education/Training Program; PCP Family Medicine; Visit Provider Family Medicine
DX: R06.00 Dyspnea, unspecified (principal); J45.998 Other asthma; D72.19 Other eosinophilia; Z87.01 Personal history of pneumonia (recurrent)
CPT/HCPCS: 36415; 80053; 82784; 82785; 82787; 85025; 86003; 86317; 86359; 86360

== ENCOUNTER 2021-08-05 19:17 | Emergency (ER) | payer MEDICARE, MEDICAID, SELFPAY ==
[2021-08-05 19:22] VITALS: O2SAT 76
[2021-08-05 19:25] VITALS: BP 151/81; PULSE 122; PULSE 123; RESP 17; O2SAT 97
[2021-08-05 19:27] VITALS: BP 151/51; PULSE 133; RESP 4; O2SAT 98
[2021-08-05 19:30] VITALS: BP 133/82; PULSE 114; O2SAT 89
[2021-08-05 19:31] VITALS: PULSE 115; RESP 14; O2SAT 99
--- NOTE | 2021-08-05 19:32 | ED.GENADUL_ITS ---
Discharge Plan Disposition Patient Disposition: AGAINST MEDICAL ADVICE Condition: Stable Discharge Details Clinical Impression: Accidental fentanyl overdose Primary Care Provider: Go Donahue ED Provider: Maria Fernanda Ford Home Meds and New Rx's Prescriptions: Continued prednisone 10 mg tablet 10 mg PO DAILY acetaminophen [Tylenol] 325 mg tablet 975 mg PO TID PRN Qty: 90 11RF doxycycline hyclate 100 mg capsule 100 mg PO BID Qty: 14 0RF omeprazole 40 mg capsule,delayed release(DR/EC) 40 mg PO DAILY Qty: 90 3RF Nucala 100 mg/mL auto-injector 300 mg subcut Q4W trazodone 100 mg tablet 200 mg PO QHS zolpidem [Ambien] 10 mg tablet 10 mg PO QHS PRN cholecalciferol (vitamin D3) 25 mcg (1,000 unit) tablet 1,000 unit PO DAILY Qty: 90 3RF diazepam [Valium] 5 mg tablet 5 mg PO BID PRN fluticasone propionate 50 mcg/actuation spray,suspension 1 spray NS BID PRN (Reason: allergy symptoms) Qty: 16 3RF promethazine 25 mg tablet 25 mg PO Q6H PRN (Reason: nausea and vomiting) Qty: 15 1RF albuterol sulfate 3 ML solution for nebulization 3 ml UPD Q2H PRN PRNQty: 90 Combivent Respimat 4 GM mist 2 puff Inhalation PRN Spiriva Respimat 4 GM mist 2 puff Inhalation Q12H PRN levalbuterol tartrate [Xopenex HFA] 15 GM HFA aerosol inhaler 2 - 4 puff Inhalation Q6H PRN Qty: 1 montelukast [Singulair] 10 MG tablet 10 mg PO DAILY Qty: 90 budesonide-formoterol [Symbicort] 10.2 GM HFA aerosol inhaler 2 puff Inhalation BID Qty: 3 4RF Rx Instructions: please send patient home with her inpatient inhaler. Use with spacer ipratropium-albuterol [DuoNeb] 0.5 mg-3 mg(2.5 mg base)/3 mL solution for nebulization 3 ml Inhalation Q6H PRN Qty: 180 3RF gabapentin 300 mg capsule 300 mg PO TID Qty: 90 11RF Rx Instructions: per [facility] levothyroxine 50 mcg capsule 50 mcg PO DAILY Qty: 90 3RF loratadine [Claritin] 10 mg tablet 10 mg PO DAILY Qty: 90 3RF benzonatate 100 mg capsule 100 mg PO BID PRN (Reason: cough) Qty: 20 0RF docusate sodium [Colace] 100 mg capsule 100 mg PO BID PRN dextroamphetamine-amphetamine [Adderall] 20 mg tablet 20 mg PO DAILY Discharge Instructions Instructions: Naloxone (Into the nose), Opioid Safety (ED), Adult Overdose (ED) Additional Instructions: You appear to have sustained an overdose of fentanyl. You were given 2 doses of Narcan on arrival to the emergency department. Use your Narcan that you have at home as needed and directed in times of overdose. Follow-up with your primary care doctor in 1 week. Return to the emergency department with any worsening or new concerning symptoms. Discharge Data Discharge Physician: Maria Fernanda Ford Medical Decision Making 31yo F w/ a history of IV drug abuse with opiate overdose, asthma, GERD, depression, sacral osteomyelitis presents as an overdose. Staff called to the ED parking lot for a reported overdose in a car. Upon arrival of staff to the outside, patient was noted to be slumped over, unresponsive but breathing. She was given 2 doses of intranasal Narcan in the parking lot and brought to room 3. Oxygen saturations noted to the mid 70s on room air. She was briefly given supplemental oxygen with bagging. Oxygen improved to 97% on room air. She was placed on 2 L nasal cannula supplemental oxygen. Patient then became more responsive and admitted to snorting fentanyl. She denied any pain. The otr tanker truck driver of the vehicle eventually brought back to room 3 and he stated that patient had snorted fentanyl and then slumped over in the vehicle but appeared to be breathing. Pt removed the monitor leads and declined any intervention. She began yelling at staff and yelling and cursing on her phone. There is no evidence of trauma on exam. Patient refused to stay for any further evaluation. She declined Narcan. The risks of and disability due to potential prolonged effects of fentanyl explained and patient understands and demonstrates capacity make decisions. Patient eloped from the ED. Medical Records Medical records reviewed: Yes I reviewed the patient's medical records. HPI General Mode of arrival: wheelchair . Date/Time Provider Initiated Documentation: 08/05/21 19:32 . Limitations to Documentation: no limitations . Information obtained by: patient . HPI Narrative: Patient is a 31-year-old female with a history of IV drug use and opiate overdose, asthma, sacral osteomyelitis, depression, GERD presents as an overdose. Staff reported that a car pulled up to the ED entrance and stated the patient was unresponsive. Upon arrival to staff outside, patient was slumped over in the car and was unresponsive but appeared to be breathing. She was reported to have good skin color. She was given 2 doses of intranasal Narcan in the ED parking Related Data Home Medications Medication Instructions Recorded Confirmed albuterol sulfate 2.5 mg/3 mL 3 ml UPD Q2H PRN PRN #90 vials 10/27/13 05/18/21 (0.083 %) solution for nebulization ipratropium 20 mcg-albuterol 100 2 puff inhalation PRN 06/20/16 05/18/21 mcg/actuation mist for inhalation (Combivent Respimat) tiotropium bromide 1.25 2 puff inhalation Q12H PRN 06/20/16 05/18/21 mcg/actuation mist for inhalation (Spiriva Respimat) levalbuterol tartrate 45 2 - 4 puff inhalation Q6H PRN ##1 09/02/16 05/18/21 mcg/actuation aerosol inhaler (Xopenex HFA) montelukast 10 mg tablet 10 mg PO DAILY #90 tab-caps 10/02/16 05/18/21 (Singulair) budesonide-formoterol HFA 160 2 puff inhalation BID ##3 03/19/17 05/18/21 mcg-4.5 mcg/actuation aerosol inhaler (Symbicort) ipratropium 0.5 mg-albuterol 3 mg 3 ml inhalation Q6H PRN #180 mL 10/23/17 05/18/21 (2.5 mg base)/3 mL nebulization soln (DuoNeb) prednisone 10 mg tablet 10 mg PO DAILY 02/02/19 05/18/21 acetaminophen 325 mg tablet 975 mg PO TID PRN Pain, fever #90 12/03/19 05/18/21 (Tylenol) tabs dextroamphetamine-amphetamine 20 20 mg PO DAILY 09/01/21 04/08/22 mg tablet (Adderall) docusate sodium 100 mg capsule 100 mg PO BID PRN 10/11/20 05/18/21 (Colace) trazodone 100 mg tablet 200 mg PO QHS 10/11/20 05/18/21 cholecalciferol (vitamin D3) 25 1,000 unit PO DAILY #90 tab-caps 11/28/20 05/18/21 mcg (1,000 unit) tablet zolpidem 10 mg tablet (Ambien) 10 mg PO QHS PRN 11/28/20 05/18/21 gabapentin 300 mg capsule 300 mg PO TID #90 caps 12/05/20 05/18/21 diazepam 5 mg tablet (Valium) 5 mg PO BID PRN 12/22/20 05/18/21 fluticasone propionate 50 1 spray NS BID PRN allergy 01/12/21 05/18/21 mcg/actuation nasal symptoms #16 grams spray,suspension promethazine 25 mg tablet 25 mg PO Q6H PRN nausea and 01/12/21 05/18/21 vomiting #15 tabs mepolizumab 100 mg/mL subcutaneous 300 mg subcut Q4W 03/05/21 05/18/21 auto-injector (Nucala) levothyroxine 50 mcg capsule 50 mcg PO DAILY #90 caps 03/30/21 05/18/21 loratadine 10 mg tablet (Claritin) 10 mg PO DAILY #90 tabs 05/11/21 05/18/21 doxycycline hyclate 100 mg capsule 100 mg PO BID sinusitis #14 caps 05/18/21 05/18/21 omeprazole 40 mg capsule,delayed 40 mg PO DAILY #90 caps 05/18/21 05/18/21 release benzonatate 100 mg capsule 100 mg PO BID PRN cough #20 caps 06/16/21 Previous Rx's Medication Instructions Recorded budesonide-formoterol HFA 160 2 puff inhalation BID ##3 03/19/17 mcg-4.5 mcg/actuation aerosol inhaler (Symbicort) ipratropium 0.5 mg-albuterol 3 mg 3 ml inhalation Q6H PRN #180 mL 10/23/17 (2.5 mg base)/3 mL nebulization soln (DuoNeb) acetaminophen 325 mg tablet 975 mg PO TID PRN Pain, fever #90 12/03/19 (Tylenol) tabs cholecalciferol (vitamin D3) 25 1,000 unit PO DAILY #90 tab-caps 11/28/20 mcg (1,000 unit) tablet gabapentin 300 mg capsule 300 mg PO TID #90 caps 12/05/20 fluticasone propionate 50 1 spray NS BID PRN allergy 01/12/21 mcg/actuation nasal symptoms #16 grams spray,suspension promethazine 25 mg tablet 25 mg PO Q6H PRN nausea and 01/12/21 vomiting #15 tabs levothyroxine 50 mcg capsule 50 mcg PO DAILY #90 caps 03/30/21 loratadine 10 mg tablet (Claritin) 10 mg PO DAILY #90 tabs 05/11/21 doxycycline hyclate 100 mg capsule 100 mg PO BID sinusitis #14 caps 05/18/21 omeprazole 40 mg capsule,delayed 40 mg PO DAILY #90 caps 05/18/21 release benzonatate 100 mg capsule 100 mg PO BID PRN cough #20 caps 06/16/21 Allergies Allergy/AdvReac Type Severity Reaction Status Date / Time ibuprofen [From Advil] Allergy Mild ADVIL ONLY Verified 08/05/21 19:32 SKIN RASH amoxicillin Allergy Verified 08/05/21 19:32 diphenhydramine Allergy Hives Verified 08/05/21 19:32 erythromycin base Allergy SKIN RASH Verified 08/05/21 19:32 metronidazole [From Flagyl] Allergy SKIN RASH Verified 08/05/21 19:32 Metronidazole HCl Allergy SKIN RASH Verified 08/05/21 19:32 [From Flagyl] penicillin V [Penicillin V] Allergy Verified 08/05/21 19:32 Sulfa (Sulfonamide Allergy Hives Verified 08/05/21 19:32 Antibiotics) General Stated Complaint: OD/Poison [facility]: 1 Review of Systems All systems reviewed & are unremarkable except as noted in HPI and below Constitutional Constitutional: Denies chills, Denies excessive sweating, Denies fatigue, Denies fever(s), Denies weakness and Denies weight loss Eyes Eyes: Reports system reviewed and no additional complaints, except as documented and Denies blurry vision ENT Ears, Nose, Mouth, and Throat: Denies vertigo, Denies dizziness, Denies otalgia, Denies nasal congestion, Denies sore throat and Denies throat swelling Cardiovascular Cardiovascular: Denies chest pain, Denies syncope, Denies rapid heart rate and Denies dyspnea Respiratory Respiratory: Denies chest congestion, Denies cough, Denies pain on inspiration and Denies dyspnea Gastrointestinal Gastrointestinal: Denies abdominal pain, Denies diarrhea and Denies vomiting Genitourinary Genitourinary: Denies hematuria, Denies dysuria and Denies flank pain Musculoskeletal Musculoskeletal: Denies back pain and Denies joint swelling Integumentary/Breasts Skin/Breast: Denies lesions and Denies rash Neurologic Neurologic: Denies behavioral changes, Denies confusion, Denies vertigo, Denies dizziness, Denies syncope, Denies localized weakness and Denies weakness Psychiatric Psychiatric: Denies behavioral changes, Denies confusion and Denies depression Endocrine Endocrine: Denies excessive sweating and Denies fatigue Hematologic/Lymphatic Hematologic/Lymphatic: Denies easy bruising and Denies lymphadenopathy Allergic/Immunologic Allergic/Immunologic: Denies throat swelling PFSH All Active Problems (Updated 08/05/21 @ 19:35 by Maria Fernanda Ford DO) Accidental fentanyl overdose (Acute) Elevated white blood cell count (Acute) Bruising (Acute) Reducible right inguinal hernia (Acute) Keratosis obturans of left external ear canal (Acute) Thrush (Acute) COVID-19 (Acute ~03/08/21) Chronic rhinitis (Acute) Chronic sinusitis (Acute) Nasal polyp (Acute) Sternal fracture (Acute) Opiate overdose (Acute) Abnormal findings on diagnostic imaging of lung (Acute) Epistaxis (Acute) Hypothyroidism (Chronic) Chronic pain (Chronic) Left-sided thoracic back pain (Acute) Pain in left hip (Acute) Dental caries (Acute) Abscess of arm, right (Acute) Abscess of arm, right (Acute) Accidental overdose (Acute) Opioid abuse (Acute) Asthma exacerbation (Acute) Breath shortness (Acute) Encounter for gynecological examination (Acute) Dental abscess (Acute) Sinusitis (Acute) Umbilical pain (Acute) Postop check (Acute) Asthma (Chronic) a. Poor control since moving from [place] in 2012. b. Smokes less than 1/2 pack a day times last three months. c. Continuous allergen exposures to dogs and cats at home. d. PFT's 10/18/2013 showed FEV-1 of 1.87, 65% of predicted, FEV-1/FVC 62%, 73% of predicted, consistent with modreatley severe obstructive pulmonary diseas. Bronchodilator response was good. There was no restrictive component. Diffusion capacity was okay. e. High resolution chest CT done 11/26/2013 showed a grown-glass appearance in the lower lobes, ? hypersensitivity pneumonitis Amenorrhea (Chronic) a. LMP 2 1/2 years ago. b. S/P miscarriage in 2007. Pelvic pain (Chronic) S/P gallbladder ultrasound which was negative. S/P pelvic ultrasound which was negative. S/P abdominal pelvic CT which was negative. Renal insufficiency (Acute 12/09/13) a. bump in creatinine from 1.0 up to 2.9 Papanicolaou smear of vagina with atypical squamous cells of undetermined significance (ASC-US) (Acute 07/10/10) History of surgical procedure (Acute) History of lung biopsy (Acute) Cyst of ovary (Acute) Sunburn of second degree (Acute) Pruritus (Acute) Pain, dental (Acute) Umbilical pain (Acute) Pre-op evaluation (Acute) Asthma (Chronic) (Acute) History of abnormal cervical Pap smear (Chronic) 2013. Colpo directed [id number]. No follow-up Pap/HPV available in EMR. 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 b. NO IV DRUG USE IN FIVE MONTHS. c. Recently enrolled in the [facility] Suboxone program, recently transferred from [place] to [facility] and is at a steady state having gone through induction. d. States surveillance testing showed buprenorphine and no other opiates this past (11/25/2013). e. Reports surveillance testing negative for hepatitis and HIV. Anxiety disorder (Chronic) Medical History 04/10/2018 date of conception ~ 01/03/2018. Patient was unaware she was had workup for abdominal pain and CT of abdomen showed a viable . She wishes to continue the . unplanned but desired by pt. Sinusitis Surgical History Endometrial Biopsy 10/06/13; [facility] H/O hernia repair x2 History of History of incision and drainage L hip History of tooth extraction 15 removed Oct 2020, 8 removed Jan 2021 Family History Father Hyperlipidemia Social History Smoking/Tobacco Use Status: Never Smoking risk assessment performed?: Yes Alcohol Intake: current Alcohol Intake frequency: holidays/special occasions only Drug use: Daily Substance use type: marijuana and IV drugs Counseling provided: treatment program and other Details: Subutex through [facility] Details: 04/2018 initial UDS + cocaine. 09/2020 - IV oxycodone Caregiver/Support person: No Household members: family and children Housing: apartment Do you need help understanding health information?: Rarely current occupation: Lives at home with her mother. Does crafts to occupy her time Pets and animals: Yes Pets and animals: cat(s) Sexually active: Yes (One episode of sexual intercourse approximately 2017) Do you think of yourself as: straight/heterosexual Current gender identity: female How often do you talk on the phone with friends or family?: decline to answer How often do you get together with friends or relatives?: decline to answer How often do you attend anabaptist or baptist services?: decline to answer Do you belong to any clubs or organized social groups?: no Panel score (0-1 are the most socially isolated patients): 0 What type of physical activity do you participate in: walking Loraine/Worship: None Do you feel safe at home: Yes Do you feel safe in your relationship?: Yes Additional Social history: Lives at home with mother. Does not work. Does crafts during the day. Female Reproductive History Menstrual control method: none History History 2 Para Hx # Term Pregnancies 0 Multiple births Hx # Pregnancies Ectopic pregnancies AB induced Hx Number of Living Children AB spontaneous 1 Past Pregnancies Del. Date GA/Weeks # Preg Succ Route Wgt Sex Labor Lgth Anesth esia Location Prov Complic Unknown Delivery Date: Last Updated by: Mildred Romero LPN Patient transferred care to [facility] on 05/11/2018 Exam Const General: disheveled and other (unresponsive) [facility] Head: normal to inspection Ears: hearing grossly normal bilaterally and external ears normal General nose exam: external nose normal Teeth and gingiva: other (normal gag reflex ) Eyes General: appearance normal, both eyes and all related structures Eyelids: eyelids normal Pupils: PERRL EOM: EOM intact bilaterally Neck Neck: normal visual inspection Lymphatic: no lymphadenopathy noted Chest Chest: normal inspection of the chest Resp Effort & Inspection: normal respiratory effort and able to speak in complete sentences Auscultation: clear to auscultation bilaterally Cardio Rate: regular rate Rhythm: regular rhythm GI Inspection: normal to inspection Palpation: soft, not firm, no guarding, no hepatosplenomegaly, no masses and nontender Auscultation: hypoactive bowel sounds Back/Spine/Pelvis Back: no CVA tenderness Skin General skin exam: no rashes or lesions noted Neuro General: patient alert and patient awake Cognition: normal cognition Speech: speech normal Gait: normal gait Motor: muscle tone normal throughout Sensory Exam: no sensory deficits noted Extrem General: normal to inspection, full ROM and capillary refill normal Psych Appearance: grossly normal Mental Status: mental status grossly normal Speech and Movement: speech and movement normal Affect: normal affect Thought Process: normal Course Vital Signs Vital signs: Vital Signs Pulse 133 H 08/05/21 19:27 Respiratory Rate 4 L 08/05/21 19:27 Blood Pressure 151/51 H 08/05/21 19:27 Pulse Oximetry 98 08/05/21 19:27 Pulse 133 H 08/05/21 19:27 Respiratory Rate 4 L 08/05/21 19:27 Blood Pressure 151/51 H 08/05/21 19:27 Pulse Oximetry 98 08/05/21 19:27
== END 2021-08-05 19:38 | disposition left against medical advice (07) ==
LOC: ER 19:56
PROVIDERS: Emergency Provider Physician Assistant; PCP Family Medicine
DX: T40.411A Poisoning by fentanyl or fentanyl analogs, accidental (unintentional), initial encounter (principal); R40.4 Transient alteration of awareness; Z53.29 Procedure and treatment not carried out because of patient's decision for other reasons
CPT/HCPCS: 99283

== ENCOUNTER → 2021-09-04 02:43 | Outpatient (CLI) | payer MEDICARE, MEDICAID, SELFPAY ==
--- NOTE | 2021-09-04 10:30 | DI.US_ITS ---
APPROVED REPORT EXAM: Comprehensive 2D, Doppler, and color-flow Echocardiogram Patient Location: Out-Patient Nipple Maker: Joseline Esparza RDCS (AE) Indications: HCINCHILLA, Other Eopsinophilia, H/O recurrent PNA Other Information Study Quality: Fair. Technically limited study due to body habitus. Conclusion Normal left ventricular wall thickness and chamber size. Estimated ejection fraction of 55 to 60%. Wall motion is normal Normal right ventricular size and systolic function Both atria are normal in size There is no structural or hemodynamically significant valvular disease Wall motion Left Ventricle The left ventricle is normal size. The left ventricular systolic function is normal. The left ventric ular ejection fraction is within the normal range. There is normal left ventricular wall thickness. T here is normal LV segmental wall motion. There is no ventricular septal defect visualized. LVEF is 55 -60%. Right Ventricle The right ventricle is normal size. The right ventricular systolic function is normal. Atria The left atrium size is normal. The right atrium size is normal. The interatrial septum is intact wit h no evidence for an atrial septal defect. Aortic Valve The aortic valve is normal in structure. Aortic valve is trileaflet. There is no aortic valvular sten osis. No aortic regurgitation is present. Mitral Valve The mitral valve is normal in structure. No evidence of mitral valve stenosis. Trace mitral regurgita tion. Tricuspid Valve The tricuspid valve is normal in structure. There is no tricuspid valve stenosis. Trace tricuspid reg urgitation. Unable to assess PA pressure. Pulmonic Valve The pulmonary valve is normal in structure. There is no pulmonic valvular stenosis. There is no pulmo gabriela valvular regurgitation. Great Vessels The aortic root is normal in size. Ascending aorta is not well visualized. Aortic arch is normal in c aliber. IVC is normal in size and collapses >50% with inspiration. Pericardium There is no pericardial effusion. 2D Dimensions IVSD d PLAX 0.80 cm F: 0.6-1.0 LV Vol A2C d MOD 73.6 mL LVPW d PLAX 0.85 cm F: 0.6 - 1.0 LV Vol A4C d MOD 67.1 mL LVID d PLAX 4.22 cm F: 3.8 - 5.2 LA vol/ BSA A2C s A-L 28.6 mL/m2 LVDs 3.15 cm F: 2.2 - 3.5 LA vol/ BSA A4C s A-L 11.4 mL/m2 Ao Root d 2.77 cm F: 2.7 - 3.3 LA Vol/ BSA Biplane s A-L 18.8 mL/m2 RA Area A4C 8.29 cm2 LA Area A4C s MOD 8.33 cm2 RA Vol/ BSA A4C s A-L 12.6 mL/m2 LA Area A2C s MOD 13.72 cm2 LV EF Teichholz 49.5 % LV EF A4C MOD 51.5 % LVEF (Adams's) 54.07 % F: 54 - 74 LV EF A2C MOD 55.1 % LV Volume 63.39 mL F: 46 - 106 LV EF Biplane MOD 54.1 % LV Volume Index 48.02 mL/m2 F: 29 - 61 SV 39.10 mL LV Vol Biplane MOD 72.3 mL SV Index 29.44 mL/m2 FS 24.75 % M-Mode TAPSE 2.08 cm (M/F) >1.7 LV Diastology MV E' lateral 0.117 (>0.1 m/s) Aortic Valve LVOT Area 3.40 cm2 AoV Area Vmax 2.91 cm2 LVOT Vmax 1.00 m/s AoV Area/ BSA (Vmax) 2.19 cm2/m2 LVOT Mean Jese. 0.70 m/s OSIEL Mean Jese. 2.88 cm2 LVOT Peak Grad 4.0 mmHg OSIEL Mean Jese. Index 2.17 cm2/m2 LVOT Mean Grad 2.2 mmHg LVOT VTI 0.165 m LVOT Diam s 2.05 cm AoV Vmax 1.17 m/s Velocity Ratio 0.85 AoV Mean Jese. 0.82 m/s AoV Peak Grad 5.5 mmHg LVOT SV 56.25 mL AoV Mean Grad 3.0 mmHg AoV VTI 0.208 m AoV Area VTI 2.70 cm2 AoV Area/ BSA (VTI) 2.04 cm/m2 Pulmonary Valve PV Vmax 0.78 (0.5-1.5 m/s) RVOT Peak Gr. 2.72 mmHg PV Peak Grad 2.4 mmHg RVOT Mean Gr. 1.25 mmHg PV Mean Grad 1.2 mmHg RVOT VTI 0.133 m PV VTI 0.119 m RVOT Vmax 0.82 m/s
== END ==
PROVIDERS: PCP Family Medicine; Visit Provider Student in an Organized Health Care Education/Training Program
DX: R06.00 Dyspnea, unspecified (principal); D72.19 Other eosinophilia
CPT/HCPCS: 93306

== ENCOUNTER 2021-10-07 18:08 | Emergency (ER) | payer MEDICARE, MEDICAID, SELFPAY ==
--- NOTE | 2021-10-07 18:15 | DI.CT_ITS ---
Exam(s) CT HEAD WO EXAM: CT HEAD WO CLINICAL HISTORY: Trauma. TECHNIQUE: Imaging Protocol: Axial computed tomography images with coronal and sagittal reformatted images were created and reviewed COMPARISON: CT CT SINUS WO from 03/22/2021 FINDINGS: Ventricles and Extra axial spaces: Normal in size and morphology for the patient's age. Hemorrhage: None. Cerebral parenchyma: Normal. Midline shift: None. Brainstem/Cerebellum: Normal. Calvarium: Normal. Visualized Paranasal sinuses/Mastoids: Opacification of several ethmoid air cells which has progresse d since 03/22/2021. Mucosal thickening and small fluid level seen in the maxillary sinuses. This is slightly progressed since the prior examination. Mild mucosal thickening is also seen in the sphenoi d sinuses. The mastoid air cells are clear. Soft Tissues: Mild soft tissue thickening overlying the frontal bone in the midline which may represe nt a small scalp laceration. No radiopaque foreign bodies are seen. IMPRESSION: 1. No acute intracranial process. 2. Small frontal scalp laceration. 3. Slight progression of the paranasal sinus disease. RADIATION DOSE DELIVERED: 679.73mGy.cm Total DLP DATA REPOSITORY: All CT scans at this facility are submitted to the National Radiology Data Registry (NRDR) Dose Index Registry (DIR) with the [employer] (ACR). RADIATION OPTIMIZATION: All CT scans at this facility use at least one of these dose optimization te chniques: automated exposure control; mA and/or kV adjustment per patient size (includes targeted exa ms where dose is matched to clinical indication); or iterative reconstruction.
[2021-10-07 18:17] VITALS: BP 145/95; PULSE 99; RESP 17; TEMP 37.2; O2SAT 96
--- NOTE | 2021-10-07 18:31 | ED.GENADUL_ITS ---
Discharge Plan Disposition Patient Disposition: HOME Condition: Stable Discharge Details Clinical Impression: Head injury due to trauma, Laceration of forehead Primary Care Provider: Go Donahue ED Provider: Benny Valero Home Meds and New Rx's Prescriptions: No Action prednisone 10 mg tablet 10 mg PO DAILY acetaminophen [Tylenol] 325 mg tablet 975 mg PO TID PRN Qty: 90 11RF doxycycline hyclate 100 mg capsule 100 mg PO BID Qty: 14 0RF omeprazole 40 mg capsule,delayed release(DR/EC) 40 mg PO DAILY Qty: 90 3RF Nucala 100 mg/mL auto-injector 300 mg subcut Q4W levofloxacin 750 mg tablet 750 mg PO DAILY Qty: 7 0RF Rx Instructions: Take 1 tab daily x 7 days trazodone 100 mg tablet 200 mg PO QHS zolpidem [Ambien] 10 mg tablet 10 mg PO QHS PRN cholecalciferol (vitamin D3) 25 mcg (1,000 unit) tablet 1,000 unit PO DAILY Qty: 90 3RF diazepam [Valium] 5 mg tablet 5 mg PO BID PRN fluticasone propionate 50 mcg/actuation spray,suspension 1 spray NS BID PRN (Reason: allergy symptoms) Qty: 16 3RF albuterol sulfate 3 ML solution for nebulization 3 ml UPD Q2H PRN PRNQty: 90 Combivent Respimat 4 GM mist 2 puff Inhalation PRN Spiriva Respimat 4 GM mist 2 puff Inhalation Q12H PRN levalbuterol tartrate [Xopenex HFA] 15 GM HFA aerosol inhaler 2 - 4 puff Inhalation Q6H PRN Qty: 1 montelukast [Singulair] 10 MG tablet 10 mg PO DAILY Qty: 90 budesonide-formoterol [Symbicort] 10.2 GM HFA aerosol inhaler 2 puff Inhalation BID Qty: 3 4RF Rx Instructions: please send patient home with her inpatient inhaler. Use with spacer ipratropium-albuterol [DuoNeb] 0.5 mg-3 mg(2.5 mg base)/3 mL solution for nebulization 3 ml Inhalation Q6H PRN Qty: 180 3RF gabapentin 300 mg capsule 300 mg PO TID Qty: 90 11RF Rx Instructions: per [facility] levothyroxine 50 mcg capsule 50 mcg PO DAILY Qty: 90 3RF loratadine [Claritin] 10 mg tablet 10 mg PO DAILY Qty: 90 3RF benzonatate 100 mg capsule 100 mg PO BID PRN (Reason: cough) Qty: 20 0RF promethazine 25 mg tablet 25 mg PO Q6H PRN (Reason: nausea and vomiting) Qty: 15 1RF docusate sodium [Colace] 100 mg capsule 100 mg PO BID PRN dextroamphetamine-amphetamine [Adderall] 20 mg tablet 20 mg PO DAILY Discharge Instructions Instructions: Head Injury (ED), Skin Adhesive Care (ED), Facial Laceration (ED) Additional Instructions: At this time no worrisome findings were noted on on head CT scan. Please continue to take your medications as prescribed and return immediately to the emergency department for any new or significant worsening of your symptoms. Monitor your laceration for any signs of infection and return. Please do not get your forehead significantly wet or apply any petroleum products as this will remove the glue prematurely. Referrals: Go Donahue MD [Primary Care Provider] - (As needed for reassessment ) Discharge Data Discharge Date/Time-TO BE ENTERED AT DEPARTURE: 10/07/21 20:43 Medical Decision Making Patient presenting to the emergency department for chief complaint of head injury. Patient [place] and started to fall. She protected her child but ended up injuring her forehead. Patient states significant nausea and sleepiness after the injury. Patient is a significantly anxious individual and review of past medical history along with previous records show multiple visits to the emergency department for narcotic abuse and also emotional outburst. Physical exam is unremarkable beyond left forehead laceration. Patient continues to endorse severe nausea and having a difficult time staying awake. Patient denies any drug or alcohol but given history and presentation I feel low threshold for CT imaging of patient's head. CT imaging does not show any acute findings. Please see laceration repair for repair of wound. This was performed with 2 internal stitches with Dermabond to appropriately close the wound I did discuss scarring which patient did she understood and was not concerned about. After discussion of diagnosis and plan of care patient has no further needs, questions, or concerns and states clear understanding to return to the emergency department for any worsening symptoms. Patient was discharged with mother who was driving her home. Patient was ambulatory at time of discharge with no new or worsening symptoms This documentation was generated using Viveve dictation system, please disregard any oddities of phrase or misspellings. Imaging Data Radiologic Study: Imaging: CT Scan Radiologist's impression: FINDINGS: Brain: Mild volume loss No hemorrhage. Unremarkable white matter. No mass effect. Cerebral ventricles: No ventriculomegaly. Paranasal sinuses : Fluid levels and mucosal thickening in the maxillary and sphenoid sinuses as well as the posterior right ethmoid air cells Mastoid air cells: Visualized mastoid air cells are well aerated. Bones/joints: Unremarkable. No acute fracture. Soft tissues: Frontal scalp laceration. IMPRESSION: No acute intracranial hemorrhage Presumed inflammatory changes in the paranasal sinuses. HPI General Mode of arrival: ambulatory . Date/Time Provider Initiated Documentation: 10/07/21 18:15 . Limitations to Documentation: no limitations . Information obtained by: patient and RN notes reviewed . History of Present Illness 31 year old F presents to the emergency department with the chief complaint of Head trauma , described as severe, with intensity rated at 10. Quality is described as sharp and constant, and is localized to the head. Patient reports no radiation. Patient started experiencing this hour(s) (<1) and it has been constant. No relieving factors improve symptom(s), No exacerbating factors reported . Patient notes no other symptoms.. Patient did receive the following treatments prior to arrival, none Related Data Home Medications Medication Instructions Recorded Confirmed albuterol sulfate 2.5 mg/3 mL 3 ml UPD Q2H PRN PRN #90 vials 10/27/13 10/07/21 (0.083 %) solution for nebulization ipratropium 20 mcg-albuterol 100 2 puff inhalation PRN 06/20/16 10/07/21 mcg/actuation mist for inhalation (Combivent Respimat) tiotropium bromide 1.25 2 puff inhalation Q12H PRN 06/20/16 10/07/21 mcg/actuation mist for inhalation (Spiriva Respimat) levalbuterol tartrate 45 2 - 4 puff inhalation Q6H PRN ##1 09/02/16 10/07/21 mcg/actuation aerosol inhaler (Xopenex HFA) montelukast 10 mg tablet 10 mg PO DAILY #90 tab-caps 10/02/16 10/07/21 (Singulair) budesonide-formoterol HFA 160 2 puff inhalation BID ##3 03/19/17 10/07/21 mcg-4.5 mcg/actuation aerosol inhaler (Symbicort) ipratropium 0.5 mg-albuterol 3 mg 3 ml inhalation Q6H PRN #180 mL 10/23/17 10/07/21 (2.5 mg base)/3 mL nebulization soln (DuoNeb) prednisone 10 mg tablet 10 mg PO DAILY 02/02/19 10/07/21 acetaminophen 325 mg tablet 975 mg PO TID PRN Pain, fever #90 12/03/19 10/07/21 (Tylenol) tabs dextroamphetamine-amphetamine 20 20 mg PO DAILY 10/11/20 10/07/21 mg tablet (Adderall) docusate sodium 100 mg capsule 100 mg PO BID PRN 10/11/20 10/07/21 (Colace) trazodone 100 mg tablet 200 mg PO QHS 10/11/20 10/07/21 cholecalciferol (vitamin D3) 25 1,000 unit PO DAILY #90 tab-caps 11/28/20 10/07/21 mcg (1,000 unit) tablet zolpidem 10 mg tablet (Ambien) 10 mg PO QHS PRN 11/28/20 10/07/21 gabapentin 300 mg capsule 300 mg PO TID #90 caps 12/05/20 10/07/21 diazepam 5 mg tablet (Valium) 5 mg PO BID PRN 12/22/20 10/07/21 fluticasone propionate 50 1 spray NS BID PRN allergy 01/12/21 10/07/21 mcg/actuation nasal symptoms #16 grams spray,suspension mepolizumab 100 mg/mL subcutaneous 300 mg subcut Q4W 03/05/21 10/07/21 auto-injector (Nucala) levothyroxine 50 mcg capsule 50 mcg PO DAILY #90 caps 03/30/21 10/07/21 loratadine 10 mg tablet (Claritin) 10 mg PO DAILY #90 tabs 05/11/21 10/07/21 doxycycline hyclate 100 mg capsule 100 mg PO BID sinusitis #14 caps 05/18/21 10/07/21 omeprazole 40 mg capsule,delayed 40 mg PO DAILY #90 caps 05/18/21 10/07/21 release benzonatate 100 mg capsule 100 mg PO BID PRN cough #20 caps 06/16/21 10/07/21 promethazine 25 mg tablet 25 mg PO Q6H PRN nausea and 10/05/21 10/07/21 vomiting #15 tabs levofloxacin 750 mg tablet 750 mg PO DAILY #7 tabs 10/09/21 10/09/21 Previous Rx's Medication Instructions Recorded budesonide-formoterol HFA 160 2 puff inhalation BID ##3 03/19/17 mcg-4.5 mcg/actuation aerosol inhaler (Symbicort) ipratropium 0.5 mg-albuterol 3 mg 3 ml inhalation Q6H PRN #180 mL 10/23/17 (2.5 mg base)/3 mL nebulization soln (DuoNeb) acetaminophen 325 mg tablet 975 mg PO TID PRN Pain, fever #90 12/03/19 (Tylenol) tabs cholecalciferol (vitamin D3) 25 1,000 unit PO DAILY #90 tab-caps 11/28/20 mcg (1,000 unit) tablet gabapentin 300 mg capsule 300 mg PO TID #90 caps 12/05/20 fluticasone propionate 50 1 spray NS BID PRN allergy 01/12/21 mcg/actuation nasal symptoms #16 grams spray,suspension levothyroxine 50 mcg capsule 50 mcg PO DAILY #90 caps 03/30/21 loratadine 10 mg tablet (Claritin) 10 mg PO DAILY #90 tabs 05/11/21 doxycycline hyclate 100 mg capsule 100 mg PO BID sinusitis #14 caps 05/18/21 omeprazole 40 mg capsule,delayed 40 mg PO DAILY #90 caps 05/18/21 release benzonatate 100 mg capsule 100 mg PO BID PRN cough #20 caps 06/16/21 promethazine 25 mg tablet 25 mg PO Q6H PRN nausea and 10/05/21 vomiting #15 tabs levofloxacin 750 mg tablet 750 mg PO DAILY #7 tabs 10/09/21 Allergies Allergy/AdvReac Type Severity Reaction Status Date / Time ibuprofen [From Advil] Allergy Mild ADVIL ONLY Verified 10/09/21 13:03 SKIN RASH amoxicillin Allergy Verified 10/09/21 13:03 diphenhydramine Allergy Hives Verified 10/09/21 13:03 erythromycin base Allergy SKIN RASH Verified 10/09/21 13:03 metronidazole [From Flagyl] Allergy SKIN RASH Verified 10/09/21 13:03 Metronidazole HCl Allergy SKIN RASH Verified 10/09/21 13:03 [From Flagyl] penicillin V [Penicillin V] Allergy Verified 10/09/21 13:03 Sulfa (Sulfonamide Allergy Hives Verified 10/09/21 13:03 Antibiotics) General Stated Complaint: HeadInjury [facility]: 3 Review of Systems Constitutional Constitutional: Reports daytime sleepiness, Denies frequent falls, Reports headache(s), Reports lethargy and Reports malaise Eyes Eyes: Reports blurry vision ENT Ears, Nose, Mouth, and Throat: Reports headache(s) and Denies epistaxis Cardiovascular Cardiovascular: Denies chest pain and Denies dyspnea Respiratory Respiratory: Denies dyspnea Gastrointestinal Gastrointestinal: Denies abdominal pain, Reports nausea and Reports vomiting Neurologic Neurologic: Denies frequent falls and Reports headache(s) PFSH All Active Problems Head injury due to trauma (Acute) Laceration of forehead (Acute) Elevated white blood cell count (Acute) Bruising (Acute) Reducible right inguinal hernia (Acute) Keratosis obturans of left external ear canal (Acute) Thrush (Acute) COVID-19 (Acute ~03/08/21) Chronic rhinitis (Acute) Chronic sinusitis (Acute) Nasal polyp (Acute) Sternal fracture (Acute) Opiate overdose (Acute) Abnormal findings on diagnostic imaging of lung (Acute) Epistaxis (Acute) Hypothyroidism (Chronic) Chronic pain (Chronic) Left-sided thoracic back pain (Acute) Pain in left hip (Acute) Dental caries (Acute) Abscess of arm, right (Acute) Abscess of arm, right (Acute) Accidental overdose (Acute) Opioid abuse (Acute) Asthma exacerbation (Acute) Breath shortness (Acute) Encounter for gynecological examination (Acute) Dental abscess (Acute) Sinusitis (Acute) Umbilical pain (Acute) Postop check (Acute) Asthma (Chronic) a. Poor control since moving from [place] in 2012. b. Smokes less than 1/2 pack a day times last three months. c. Continuous allergen exposures to dogs and cats at home. d. PFT's 10/18/2013 showed FEV-1 of 1.87, 65% of predicted, FEV-1/FVC 62%, 73% of predicted, consistent with modreatley severe obstructive pulmonary diseas. Bronchodilator response was good. There was no restrictive component. Diffusion capacity was okay. e. High resolution chest CT done 11/26/2013 showed a grown-glass appearance in the lower lobes, ? hypersensitivity pneumonitis Amenorrhea (Chronic) a. LMP 2 1/2 years ago. b. S/P miscarriage in 2007. Pelvic pain (Chronic) S/P gallbladder ultrasound which was negative. S/P pelvic ultrasound which was negative. S/P abdominal pelvic CT which was negative. Renal insufficiency (Acute 12/09/13) a. bump in creatinine from 1.0 up to 2.9 Papanicolaou smear of vagina with atypical squamous cells of undetermined significance (ASC-US) (Acute 07/10/10) History of surgical procedure (Acute) History of lung biopsy (Acute) Cyst of ovary (Acute) Sunburn of second degree (Acute) Pruritus (Acute) Pain, dental (Acute) Umbilical pain (Acute) Pre-op evaluation (Acute) Asthma (Chronic) (Acute) History of abnormal cervical Pap smear (Chronic) 2013. Colpo directed [id number]. No follow-up Pap/HPV available in EMR. 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 b. NO IV DRUG USE IN FIVE MONTHS. c. Recently enrolled in the [facility] Suboxone program, recently transferred from [facility] to [facility] and is at a steady state having gone through induction. d. States surveillance testing showed buprenorphine and no other opiates this past (11/25/2013). e. Reports surveillance testing negative for hepatitis and HIV. Anxiety disorder (Chronic) Medical History 04/10/2018 date of conception ~ 01/03/2018. Patient was unaware she was had workup for abdominal pain and CT of abdomen showed a viable . She wishes to continue the . unplanned but desired by pt. Sinusitis Surgical History Endometrial Biopsy 10/06/13; [facility] H/O hernia repair x2 History of History of incision and drainage L hip History of tooth extraction 15 removed Oct 2020, 8 removed Jan 2021 Family History Father Hyperlipidemia Social History Smoking/Tobacco Use Status: Never Smoking risk assessment performed?: Yes Alcohol Intake: current Alcohol Intake frequency: holidays/special occasions only Drug use: Daily Substance use type: marijuana and IV drugs Counseling provided: treatment program and other Details: Subutex through [facility] Details: 04/2018 initial UDS + cocaine. 09/2020 - IV oxycodone Caregiver/Support person: No Household members: family and children Housing: apartment Do you need help understanding health information?: Rarely current occupation: Lives at home with her mother. Does crafts to occupy her time Pets and animals: Yes Pets and animals: cat(s) Sexually active: Yes (One episode of sexual intercourse approximately 2017) Do you think of yourself as: straight/heterosexual Current gender identity: female How often do you talk on the phone with friends or family?: decline to answer How often do you get together with friends or relatives?: decline to answer How often do you attend islam or restorationist services?: decline to answer Do you belong to any clubs or organized social groups?: no Panel score (0-1 are the most socially isolated patients): 0 What type of physical activity do you participate in: walking Loraine/Roman Catholic: None Do you feel safe at home: Yes Do you feel safe in your relationship?: Yes Additional Social history: Lives at home with mother. Does not work. Does crafts during the day. Female Reproductive History Menstrual control method: none History History 2 Para Hx # Term Pregnancies 0 Multiple births Hx # Pregnancies Ectopic pregnancies AB induced Hx Number of Living Children AB spontaneous 1 Past Pregnancies Del. Date GA/Weeks # Preg Succ Route Wgt Sex Labor Lgth Anesth esia Location Prov Complic Unknown Delivery Date: Last Updated by: Mildred Romero LPN Patient transferred care to [facility] on 05/11/2018 Exam Const General: cooperative Orientation: alert, awake and oriented x3 HENMT Head: laceration left frontal linear, actively bleeding, involving subcutaneous tissue and with sensation intact 1.18 in Ears: hearing grossly normal bilaterally and TM's normal bilaterally General nose exam: external nose normal Mouth: oral mucosae normal and moist mucous membranes Throat: posterior oropharynx normal Eyes Visual Mena: normal visual mena by confrontation Alignment and Position: alignment normal Periorbital: periorbital findings normal Eyelids: eyelids normal Sclera: sclerae normal Pupils: PERRL EOM: EOM intact bilaterally Neck Neck: normal visual inspection, full ROM, no lymphadenopathy and no meningeal signs Resp Effort & Inspection: normal respiratory effort and able to speak in complete sentences Auscultation: clear to auscultation bilaterally Cardio Rate: regular rate Rhythm: regular rhythm Heart Sounds: S1 normal and S2 normal Neuro General: patient alert, patient awake, patient oriented x3, gait normal, tone normal, moves all extremities, CN's II-XI intact bilaterally and not confused Cognition: normal cognition Speech: speech normal Motor: muscle tone normal throughout, strength 5/5 throughout, no movement abnormalities noted and no fasciculations Sensory Exam: no sensory deficits noted Coordination: Does not sway with eyes open Course Vital Signs Vital signs: Vital Signs Temperature 37.2 C 10/07/21 18:17 Pulse 99 H 10/07/21 18:17 Respiratory Rate 17 10/07/21 18:17 Blood Pressure 145/95 H 10/07/21 18:17 Pulse Oximetry 96 10/07/21 18:17 Temperature 37.2 C 10/07/21 18:17 Temperature Source Temporal Artery Scan 10/07/21 18:17 Pulse 99 H 10/07/21 18:17 Respiratory Rate 17 10/07/21 18:17 Respiratory Effort Non-Labored 10/07/21 18:22 Respiratory Depth Normal 10/07/21 18:22 Respiratory Pattern Normal 10/07/21 18:22 Blood Pressure 145/95 H 10/07/21 18:17 Blood Pressure Position Sitting 10/07/21 18:17 Pulse Oximetry 96 10/07/21 18:17 Oxygen Delivery Method Room Air 10/07/21 18:17 Oxygen Flow Rate 0 10/07/21 18:17 Pain Level 10 10/07/21 18:22 Procedures Laceration Laceration 1: Site: face Side (If applicable): left Size (cm): 3 Description: linear and clean Depth: simple, single layer Local Anesthetic: other anesthetic (LET) Pre-repair: wound explored, irrigated extensively and deep structures intact Skin layer closed with: other (dermabound) Subcutaneous layer closed with: vicryl Size: 5-0 Number of sutures: 2 Technique: simple, interrupted
[2021-10-07] MEDS: Lidocaine/Epinephri/Tetracaine Topical Gel 3 ML TP (18:35)
--- NOTE | 2021-10-07 20:26 | DI.VRAD_ITS ---
PROCEDURE INFORMATION: Exam: CT Head Without Contrast Exam date and time: 10/07/2021 8:18 PM Age: 31 years old Clinical indication: Injury or trauma; Other: Hit head on slide; Blunt trauma (contusions or hematomas); Patient HX: PT hit head while going down slide TECHNIQUE: Imaging protocol: Computed tomography of the head without contrast. COMPARISON: MRI - BRAIN WO CONTRAST 06/22/2015 3:11 PM FINDINGS: Brain: Mild volume loss No hemorrhage. Unremarkable white matter. No mass effect. Cerebral ventricles: No ventriculomegaly. Paranasal sinuses : Fluid levels and mucosal thickening in the maxillary and sphenoid sinuses as well as the posterior right ethmoid air cells Mastoid air cells: Visualized mastoid air cells are well aerated. Bones/joints: Unremarkable. No acute fracture. Soft tissues: Frontal scalp laceration. IMPRESSION: No acute intracranial hemorrhage Presumed inflammatory changes in the paranasal sinuses. Dictated and Authenticated by: Andrzej Bravo MD. Ordering:DONOVAN Zapata MD
--- NOTE | 2021-10-08 11:08 | NUR.NOTE ---
Nursing Note: Patient called stating that her nose is swollen, painfull, bruised. She states that it is hard to breathe out of her nose. I gave her the results of her CT scan. Told her that if these symptoms were not present last night, or if she is worse that she would probably need re-evaluation and to come back to the ED.
== END 2021-10-07 20:43 | disposition home or self-care (01) ==
PROVIDERS: Emergency Provider Nurse Practitioner Family; PCP Family Medicine
DX: S01.81XA Laceration without foreign body of other part of head, initial encounter (principal); W19.XXXA Unspecified fall, initial encounter; Y93.89 Activity, other specified; Y92.838 Other recreation area as the place of occurrence of the external cause
CPT/HCPCS: 12052; 96372; 99284; 70450

== ENCOUNTER 2021-12-09 09:47 | Emergency (ER) | payer MEDICARE, MEDICAID, SELFPAY ==
[2021-12-09 09:49] VITALS: BP 134/94; PULSE 105; RESP 18; TEMP 36.8; O2SAT 94
--- NOTE | 2021-12-09 10:00 | DI.CT_ITS ---
Exam(s) CT ABDOMEN PELVIS W EXAM: CT ABDOMEN PELVIS W CLINICAL HISTORY: RLQ abd pain, blood in stool; hx of hernias TECHNIQUE: Imaging Protocol: Axial computed tomography images with coronal and sagittal reformatted images were created and reviewed CONTRAST MATERIAL: Intravenous: Omnipaque 350 Contrast volume:80 mL Oral: No COMPARISON: CT CT ABDOMEN PELVIS WO from 07/06/2021 FINDINGS: ABDOMEN: Lung Bases: Normal where visualized. Liver: Normal density. There is a tiny cyst in the inferior pole of the liver. No suspicious hepatic masses are seen. Portal, Superior Mesenteric, and Splenic Veins: Unremarkable. Gallbladder and Biliary Tract: No radiodense calculus or dilation. Pancreas: Normal density, no abnormal calcifications or inflammatory process. Spleen: Normal. Adrenals: No masses seen. Kidneys: Normal size, contour and axis. No radiodense stones or obstructive uropathy. No masses seen. Abdominal Aorta: Abdominal portion non-dilated. Bowel: No obstruction or bowel wall thickening. Appendix is unremarkable. Peritoneal Cavity: No ascites, collection or mesenteric inflammatory response. No free air. Lymph Nodes: Within normal limits. Bones: Within normal limits for the patient's age. Soft Tissues: There is again seen a fat containing right femoral hernia. PELVIS: Bladder: There is circumferential thickening of the wall of the urinary bladder. Reproductive Organs: Unremarkable as visualized. Lymph Nodes: Within normal limits. Bones: Within normal limits for the patient's age. IMPRESSION: 1. Circumferential urinary bladder wall thickening. This may reflect reflect acute cystitis. Please correlate clinically. 2. Fat containing right femoral hernia. 3. No other acute abdominal or pelvic process. Normal appendix. RADIATION DOSE DELIVERED: Total DLP DATA REPOSITORY: All CT scans at this facility are submitted to the National Radiology Data Registry (NRDR) Dose Index Registry (DIR) with the [employer] (A[employer]). RADIATION OPTIMIZATION: All CT scans at this facility use at least one of these dose optimization te chniques: automated exposure control; mA and/or kV adjustment per patient size (includes targeted exa ms where dose is matched to clinical indication); or iterative reconstruction.
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
[2021-12-09 10:29] LABS: Abs Immature Grans 0.04 10^3/uL (0.0-0.06); Absolute Basophil Count 0.09 10^3/uL (0.0-0.2); Absolute Eosinophil Count 0.03 10^3/uL (0.0-0.7); Absolute Lymphocyte Count 1.12 10^3/uL (1.2-3.4); Absolute Monocyte Count 0.26 10^3/uL (0.1-0.8); Absolute Neutrophil Count 7.38 10^3/uL (1.2-6.7); Eosinophils % 0.3; HCT 44.3 % (36.0-46.0); HGB 14.5 g/dL (11.2-15.7); Immature Grans % 0.4; Lymphocytes % 12.6; MCH 30.7 pg (27.0-33.0); MCHC 32.7 % (32.0-36.0); MCV 94 fL (80-95); MPV 7.7 fL (8.0-11.0); Monocytes % 2.9; Neutrophils % 82.8; Platelet Count 496 10^3/uL (130-400); RBC 4.72 10^6/uL (3.93-5.22); RDW 14.2 % (11.7-14.6); RDW-SD 49.1 fL; WBC 8.92 10^3/uL (4.4-10.8)
[2021-12-09 10:32] LABS: Bilirubin Negative (Negative); Blood Small (Negative); Clarity Clear (Clear); Glucose Negative (Negative); Ketones Negative (Negative); Leukocyte Esterase Negative (Negative); Nitrite Negative (Negative); Urobilinogen 0.2 EU/dL (Up TO 0.2); pH 6.5 (5-8)
[2021-12-09] MEDS: Normal Saline 1,000 ML 1000 ML IV (10:33)
[2021-12-09] MEDS: Ondansetron 4 MG/2 ML VIAL IVP (10:34)
[2021-12-09 10:39] LABS: Epithelial Cells Rare HPF (Negative); RBC 0-2 HPF (0-2); WBC Negative HPF (0-5)
[2021-12-09 10:40] LABS: Bacteria Negative HPF (Negative); C & S Indicated? No; Casts Negative LPF (Negative); Crystals Negative HPF (Negative); Mucus Negative (Negative)
[2021-12-09 10:44] LABS: ALT 31 U/L (14-59); AST 25 U/L (15-37); Alkaline Phosphatase 132 U/L (46-116); Anion Gap 7.6 mmol/L (3-11); BUN 18 mg/dL (7-18); Bilirubin, Total 0.3 mg/dL (0.2-1.0); CO2 28.4 mmol/L (21.0-32.0); CREATININE 0.9 mg/dL (0.55-1.02); Calcium 9.2 mg/dL (8.5-10.1); Chloride 103 mmol/L (98-107); Estimated GFR 86.57 (mL/min/1.73m2); Glucose 115 mg/dL (74-106); Potassium 4.6 mmol/L (3.5-5.1); Sodium 139 mmol/L (136-145); Total Protein 8.2 g/dL (6.4-8.2)
[2021-12-09] MEDS: Omnipaque 350 MG/ML 100 ML BTL IJ (11:23)
[2021-12-09] MEDS: Normal Saline Flush 10 ML SYR IVP (11:24)
--- NOTE | 2021-12-09 12:27 | NUR.NOTE ---
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 patient finally informed us that she was going to the bathroom as she stormed past us to do so. unsure if patient drank from the sink at that time, patient is now in her hospital room.
--- NOTE | 2021-12-09 12:30 | DI.VRAD_ITS ---
PROCEDURE INFORMATION: Exam: CT Abdomen And Pelvis With Contrast Exam date and time: 12/09/2021 11:22 AM Age: 31 years old Clinical indication: Other: Rlq abd pain, blood in stool; HX of hernias TECHNIQUE: Imaging protocol: Computed tomography of the abdomen and pelvis with contrast. Contrast material: OMNIPAQUE 350; Contrast volume: 80 ml; Contrast route: INTRAVENOUS (IV); COMPARISON: CT ABDOMEN PELVIS WO 07/06/2021 1:21 PM FINDINGS: Liver: Stable hepatic cyst in the inferior right lobe measuring 6 mm. Gallbladder and bile ducts: Normal. No calcified stones. No ductal dilation. Pancreas: Normal. No ductal dilation. Spleen: Normal. No splenomegaly. Adrenal glands: Normal. No mass. Kidneys and ureters: Normal. No hydronephrosis. Stomach and bowel: No bowel wall thickening or bowel obstruction. Appendix: Appendix normal. Intraperitoneal space: Unremarkable. No free air. No significant fluid collection. Vasculature: Unremarkable. No abdominal aortic aneurysm. Lymph nodes: Unremarkable. No enlarged lymph nodes. Urinary bladder: Circumferential bladder wall thickening, may relate to acute cystitis, clinical correlation necessary. Reproductive: Unremarkable as visualized. Bones/joints: Unremarkable. No acute fracture. Soft tissues: Unremarkable. IMPRESSION: 1. Appendix normal. 2. Circumferential bladder wall thickening, may relate to acute cystitis, clinical correlation necessary. 3. No bowel wall thickening or bowel obstruction. Dictated and Authenticated by: Glenis White MD. Ordering:JUNE Richardson MD
== END 2021-12-09 12:49 | disposition home or self-care (01) ==
PROVIDERS: Emergency Provider Emergency Medicine; PCP Family Medicine
DX: K92.1 Melena (principal); K64.4 Residual hemorrhoidal skin tags
CPT/HCPCS: 36415; 80053; 81025; 87493; 96361; 96374; 96375; 99284; 74177; 81003; 81015; 85025; 87177; J2405; J3490

== ENCOUNTER 2021-12-09 10:47 | Outpatient (REF) | payer MEDICARE, MEDICAID, SELFPAY ==
[2021-12-09 11:37] LABS: *AMPHETAMINES SCREEN URINE Negative (Negative); *BARBITURATES SCREEN URINE Negative (Negative); *BENZODIAZEPINES SCREEN URINE Negative (Negative); Cannabinoids THC Positive (Negative); Cocaine Screen,Urine Negative (Negative); METHADONE URINE SCREEN Negative (Negative); OPIATES URINE SCREEN Negative (Negative)
[2021-12-09 11:39] LABS: Tricyclic Antidepressants Negative (Negative)
[2021-12-13 12:48] LABS: 2-OH-Ethyl-Flurazepam Negative ng/mL (Cutoff: 10); 7-NH-Clonazepam 47 ng/mL (Cutoff: 10); 7-NH-Flunitrazepam Negative ng/mL (Cutoff: 10); Alpha OH-Alprazolam Negative ng/mL (Cutoff: 10); Alpha-OH Midazolam Negative ng/mL (Cutoff: 10); Alpha-OH-Triazolam Negative ng/mL (Cutoff: 10); Alprazolam Negative ng/mL (Cutoff: 10); Benzodiazepines Interpretation Positive.; Chlordiazepoxide Negative ng/mL (Cutoff: 10); Clobazam Negative ng/mL (Cutoff: 10); Clonazepam Negative ng/mL (Cutoff: 10); Diazepam Negative ng/mL (Cutoff: 10); Flurazepam Negative ng/mL (Cutoff: 10); Lorazepam Negative ng/mL (Cutoff: 10); Midazolam Negative ng/mL (Cutoff: 10); N-Desmethylclobazam Negative ng/mL (Cutoff: 10); Prazepam Negative ng/mL (Cutoff: 10); Temazepam Negative ng/mL (Cutoff: 10); Triazolam Negative ng/mL (Cutoff: 10); Zolpidem Carboxylic acid 68 ng/mL (Cutoff: 10)
[2021-12-14 09:36] LABS: Amphetamine 1428 ng/mL (Cutoff: 25); Amphetamines Interpretation Positive.; MDA (Ecstasy Metabolite) Negative ng/mL (Cutoff: 25); MDMA (Ecstasy) Negative ng/mL (Cutoff: 25); Methamphetamine Negative ng/mL (Cutoff: 25); Phentermine Negative ng/mL (Cutoff: 25); Pseudoephedrine/Ephedrine Negative ng/mL (Cutoff: 25)
[2021-12-18 13:33] LABS: Fentanyl Interpretation Negative.; Fentanyl by LC-MS/MS Not Detected; Norfentanyl by LC-MS/MS Not Detected
== END 2021-12-09 10:48 | disposition home or self-care (01) ==
LOC: LBN 10:47
PROVIDERS: PCP Family Medicine; Visit Provider Nurse Practitioner Psychiatric/Mental Health
DX: F42.2 Mixed obsessional thoughts and acts (principal)
CPT/HCPCS: 80307; 80324; 80346; 80354

== ENCOUNTER → 2022-01-02 01:20 | Outpatient (CLI) | payer MEDICARE, MEDICAID, SELFPAY ==
--- NOTE | 2022-01-02 | DI.US_ITS ---
Exam(s) US HERNIA EXAM: US HERNIA CLINICAL HISTORY: FEMORAL HERNIA K41.90 WORSENING SWELLING. TECHNIQUE: Ultrasound was performed using standard protocol. COMPARISON: CT CT ABDOMEN PELVIS W from 12/09/2021 FINDINGS: Sonographic assessment utilizing grayscale and color Doppler imaging was performed and targeted to th e area of clinical concern. There is a loculated fluid collection in the right inguinal region adjacent to the surgical site humera uring 7.7 x 4.6 x 7.6 cm. There is no internal blood flow to suggest a vascular structure. It does not appear to communicate with the abdominal cavity. IMPRESSION: 7.7 x 4.6 x 7.6 cm loculated fluid collection in the right inguinal region corresponding to the palpa ble abnormality. Differential considerations include resolving hematoma or seroma or abscess. DATA REPOSITORY:
== END ==
PROVIDERS: Visit Provider Surgery
DX: K41.90 Unilateral femoral hernia, without obstruction or gangrene, not specified as recurrent (principal); R19.03 Right lower quadrant abdominal swelling, mass and lump
CPT/HCPCS: 76857

== ENCOUNTER 2022-01-02 13:19 | Outpatient (REF) | payer MEDICARE, MEDICAID, SELFPAY ==
[2022-01-02 08:55] LABS: Bilirubin Negative (Negative); Blood Negative (Negative); Clarity Clear (Clear); Glucose Negative (Negative); Ketones Negative (Negative); Leukocyte Esterase Negative (Negative); Nitrite Negative (Negative); Urobilinogen 0.2 EU/dL (Up TO 0.2); pH 6.5 (5-8)
== END 2022-01-02 13:20 | disposition home or self-care (01) ==
LOC: LBN 13:19
PROVIDERS: Visit Provider Surgery
DX: R35.0 Frequency of micturition (principal)
CPT/HCPCS: 81003

== ENCOUNTER 2022-03-05 16:49 | Outpatient (CLI) | payer MEDICARE, MEDICAID, SELFPAY ==
[2022-03-05 14:36] LABS: Albumin 3.8 g/dL (3.4-5.0); Anion Gap 9.5 mmol/L (3-11); BUN 7 mg/dL (7-18); CO2 27.5 mmol/L (21.0-32.0); CREATININE 0.8 mg/dL (0.55-1.02); Calcium 9.5 mg/dL (8.5-10.1); Chloride 103 mmol/L (98-107); Estimated GFR 99.71 (mL/min/1.73m2); PHOSPHORUS 4.3 mg/dL (2.6-4.7); Potassium 3.6 mmol/L (3.5-5.1); Sodium 140 mmol/L (136-145)
[2022-03-05 14:39] LABS: Bilirubin Negative (Negative); Blood Negative (Negative); Clarity Clear (Clear); Glucose Negative (Negative); Ketones Negative (Negative); Leukocyte Esterase Negative (Negative); Nitrite Negative (Negative); Specific Gravity <= 1.005 (1.005-1.025); Urobilinogen 0.2 EU/dL (Up TO 0.2); pH 5.5 (5-8)
[2022-03-05 15:36] LABS: COMMENT (LAB VIEW ONLY) 26.49 mg/dL; PROTEIN < 6.0 mg/dL
[2022-03-05 18:52] LABS: TSH (W/Ref FT4) 0.87 uIU/mL (0.36-3.74)
[2022-03-08 12:36] LABS: Phospholipase A2 Recep, ELISA <2 RU/mL
[2022-03-08 16:39] LABS: PLA2R, Immunoflurescence Negative (Negative)
[2022-03-12 14:31] LABS: THSD7A Ab Negative (Negative)
== END 2022-03-05 16:50 | disposition home or self-care (01) ==
LOC: LBO 16:49
PROVIDERS: Internal Medicine; PCP Family Medicine; Visit Provider Internal Medicine
DX: E03.9 Hypothyroidism, unspecified (principal); N06.2 Isolated proteinuria with diffuse membranous glomerulonephritis; N03.2 Chronic nephritic syndrome with diffuse membranous glomerulonephritis; N18.1 Chronic kidney disease, stage 1; E55.9 Vitamin D deficiency, unspecified
CPT/HCPCS: 36415; 80051; 83520; 84520; 86255; 81003; 82040; 82310; 82565; 84100; 84156; 84443

== ENCOUNTER 2022-05-31 12:50 | Emergency (ER) | payer MEDICARE, MEDICAID, SELFPAY ==
[2022-05-31 12:53] VITALS: BP 141/98; PULSE 133; RESP 97; TEMP 36.5; O2SAT 98
--- NOTE | 2022-05-31 13:10 | NUR.NOTE ---
Nursing Note: Pt refused IV attempt, provider aware.
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
--- NOTE | 2022-05-31 13:35 | NUR.NOTE ---
Nursing Note:Attempted to place an IV and draw labs on patient. Patient demanded to sit on edge of bed, which arm and IV site to use. I informed patient that area for an IV is difficult for rolling away. I was able to locate another site. Patient again demanded i use the site she wants. I attempted the site she wanted. Vein did roll. Attempted to find vein. Patient became upset telling me to stop. Provider informed
[2022-05-31 13:43] LABS: Abs Immature Grans 0.03 10^3/uL (0.0-0.06); Absolute Eosinophil Count 0.53 10^3/uL (0.0-0.7); Absolute Lymphocyte Count 1.18 10^3/uL (1.2-3.4); Absolute Monocyte Count 0.65 10^3/uL (0.1-0.8); Absolute Neutrophil Count 5.18 10^3/uL (1.2-6.7); Basophils % 1.3; Eosinophils % 6.9; HCT 42.2 % (36.0-46.0); HGB 14.1 g/dL (11.2-15.7); Immature Grans % 0.4; Lymphocytes % 15.4; MCHC 33.4 % (32.0-36.0); MCV 93 fL (80-95); MPV 7.9 fL (8.0-11.0); Monocytes % 8.5; Neutrophils % 67.5; Platelet Count 384 10^3/uL (130-400); RBC 4.55 10^6/uL (3.93-5.22); RDW 14.4 % (11.7-14.6); RDW-SD 49.3 fL; WBC 7.67 10^3/uL (4.4-10.8)
--- NOTE | 2022-05-31 13:53 | DI.CT_ITS ---
Exam(s) CT ABDOMEN PELVIS WO EXAM: CT ABDOMEN PELVIS WO CLINICAL HISTORY: rt lower abd pain, rectal prolapse. TECHNIQUE: Imaging Protocol: Axial computed tomography images with coronal and sagittal reformatted images were created and reviewed CONTRAST MATERIAL: Intravenous: none Oral: None COMPARISON: CT CT ABDOMEN PELVIS W from 12/09/2021 FINDINGS: VISUALIZED LUNG BASES: No nodules nor pleural effusions evident. ABDOMEN: There is no ascites. LIVER: There is a small cyst in the inferior right hepatic lobe, unchanged. This measures 5 mm. The re are no other focal hepatic lesions evident on this noninfused study. No obvious dilated intrahepa tic ducts. GALLBLADDER/BILIARY: No obvious gallbladder pathology. CBD is not dilated. PANCREAS: No evidence of pancreatic mass nor dilatation of the pancreatic duct. SPLEEN: Spleen is not enlarged. No obvious intrasplenic lesions. ADRENALS: There are no significant adrenal masses. KIDNEYS:No cysts evident. No solid renal masses. No calculi nor hydronephrosis. . ABDOMINAL AORTA: Abdominal aorta is not enlarged. LYMPH NODES: There is no retroperitoneal nor paraaortic adenopathy. ABDOMINAL WALL: There has been interval repair of the previously described right femoral hernia. Larry e scarring is noted at this region. No new additional anterior abdominal wall hernias. GI: There is no evidence of bowel obstruction, free air, nor abscess. PELVIS: LYMPH NODES: There is no intrapelvic nor inguinal adenopathy. GI: No evidence of appendicitis.No evidence of sigmoid diverticulitis. URINARY BLADDER: No calculi nor obvious masses evident REPRODUCTIVE: Follicular cysts noted in the ovaries, largest being in the right ovary and measuring a pproximately 1.7 x 1 point 2 cm. OSSEOUS: Again noted is ankylosis of the left sacroiliac joint. Right sacroiliac joint again appears unremarkable. IMPRESSION: 1. Compared to the prior CT scan 12/09/2021 there has been interval repair of a right femoral hernia. Some scarring is noted at this area. No evidence of recurrence hernia at this level nor elsewhere in the abdomen. 2. Stable benign-appearing small 5 millimeter cyst in the inferior right hepatic lobe. 3. 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 Right SI joint unremarkable. Called by myself to ER physician. RADIATION DOSE DELIVERED: 522.63mGy.cm Total DLP DATA REPOSITORY: All CT scans at this facility are submitted to the National Radiology Data Registry (NRDR) Dose Index Registry (DIR) with the [employer] (ACR). RADIATION OPTIMIZATION: All CT scans at this facility use at least one of these dose optimization te chniques: automated exposure control; mA and/or kV adjustment per patient size (includes targeted exa ms where dose is matched to clinical indication); or iterative reconstruction.
[2022-05-31 14:00] LABS: ALT 38 U/L (14-59); AST 30 U/L (15-37); Albumin 3.6 g/dL (3.4-5.0); Alkaline Phosphatase 111 U/L (46-116); Anion Gap 5.7 mmol/L (3-11); BUN 7 mg/dL (7-18); Bilirubin, Total 0.2 mg/dL (0.2-1.0); CO2 26.3 mmol/L (21.0-32.0); CREATININE 0.7 mg/dL (0.55-1.02); Calcium 8.4 mg/dL (8.5-10.1); Chloride 103 mmol/L (98-107); Estimated GFR 116.31 (mL/min/1.73m2); Glucose 87 mg/dL (74-106); Lipase 27 U/L (16-77); Magnesium 2.2 mg/dL (1.8-2.4); Potassium 3.9 mmol/L (3.5-5.1); Sodium 135 mmol/L (136-145); Total Protein 7.9 g/dL (6.4-8.2)
[2022-05-31 14:21] VITALS: BP 114/68; PULSE 125; RESP 20; O2SAT 98
--- NOTE | 2022-05-31 15:49 | CMACTNOTE_ITS ---
- If Service Date Differs Date of service: 05/31/22 Time of Service: 15:49 Care Management Activity Note Rosy is seen in the ED for rectal prolapse and abdominal pain. At the request of ED provider, KAL coordinates a referral to [facility] Colorectal Surgery to assist Rosy in obtaining an appointment for evaluation and treatment. She has Medicare and Medicaid for insurance.
--- NOTE | 2022-06-03 09:15 | NUR.NOTE ---
Nursing Note: PAtient called looking for information about her referral to [facility] surgerical team. PAtient had left without her discharge packet. PAteint was upset that CM was going to notify her about an appt. I transferred call to CM.
== END 2022-05-31 14:29 | disposition home or self-care (01) ==
PROVIDERS: Emergency Provider Student in an Organized Health Care Education/Training Program; PCP Family Medicine
DX: K62.3 Rectal prolapse (principal); R10.31 Right lower quadrant pain; R00.0 Tachycardia, unspecified
CPT/HCPCS: 36415; 80053; 83690; 99284; 74176; 83735; 85025; 99283

== ENCOUNTER 2022-07-16 01:44 | Outpatient (CLI) | payer MEDICARE, MEDICAID, SELFPAY ==
--- NOTE | 2022-07-16 | DI.RAD_ITS ---
Exam(s) XR CHEST 2V PA LATERAL EXAM: XR CHEST 2V PA LATERAL CLINICAL HISTORY: RT SIDED CHEST PAIN AFTER BRONCHOSCOPY,LAVAGE,? PNEUMOTHORAX TECHNIQUE: 2D digital imaging was performed of the chest. Two images were obtained. PA and lateral views were obtained. COMPARISON: CR XR CHEST 2V PA LATERAL from 12/11/[address] ABDOMEN PELVIS WO from 05/31/2022 FINDINGS: MEDIASTINUM: Normal. HEART: Normal. PULMONARY VASCULATURE: Normal. LUNGS: Clear. PLEURAL SPACE: No pleural effusion or pneumothorax. BONE:Within normal limits for the patient's age. There is an old right rib fracture. OTHER FINDINGS:Normal. IMPRESSION: No acute pulmonary findings. DATA REPOSITORY: RADIATION DOSE DELIVERED:
== END 2022-07-16 02:04 ==
LOC: DI 01:45
PROVIDERS: PCP Family Medicine; Visit Provider Student in an Organized Health Care Education/Training Program
DX: R07.9 Chest pain, unspecified (principal)
CPT/HCPCS: 71046

== ENCOUNTER 2022-09-03 13:26 | Outpatient (CLI) | payer MEDICARE, MEDICAID, SELFPAY ==
[2022-09-03 13:17] LABS: CREATININE 0.8 mg/dL (0.55-1.02); Estimated GFR 99.09 (mL/min/1.73m2)
[2022-09-05 21:37] LABS: Strongyloides IgG Antibody Negative (Negative)
== END 2022-09-03 13:27 | disposition home or self-care (01) ==
LOC: LBO 13:27
PROVIDERS: PCP Family Medicine; Visit Provider Student in an Organized Health Care Education/Training Program
DX: D72.110 Idiopathic hypereosinophilic syndrome [IHES] (principal); R00.0 Tachycardia, unspecified
CPT/HCPCS: 36415; 82565; 86682

== ENCOUNTER 2022-09-09 15:25 | Outpatient (CLI) | payer MEDICARE, MEDICAID, SELFPAY ==
[2022-09-09 15:31] LABS: Abs Immature Grans 0.02 10^3/uL (0.0-0.06); Absolute Basophil Count 0.15 10^3/uL (0.0-0.2); Absolute Eosinophil Count 0.25 10^3/uL (0.0-0.7); Absolute Lymphocyte Count 2.54 10^3/uL (1.2-3.4); Absolute Monocyte Count 0.57 10^3/uL (0.1-0.8); Absolute Neutrophil Count 5.77 10^3/uL (1.2-6.7); Basophils % 1.6; Eosinophils % 2.7; HCT 35.6 % (36.0-46.0); Immature Grans % 0.2; Lymphocytes % 27.3; MCHC 33.7 % (32.0-36.0); MCV 92 fL (80-95); MPV 8.4 fL (8.0-11.0); Monocytes % 6.1; Neutrophils % 62.1; Platelet Count 439 10^3/uL (130-400); RBC 3.87 10^6/uL (3.93-5.22); RDW 13.8 % (11.7-14.6); RDW-SD 46.6 fL
[2022-09-09 16:53] LABS: ALT 34 U/L (14-59); AST 37 U/L (15-37); Albumin 3.5 g/dL (3.4-5.0); Alkaline Phosphatase 91 U/L (46-116); Anion Gap 10.3 mmol/L (3-11); BUN 7 mg/dL (7-18); Bilirubin, Total 0.2 mg/dL (0.2-1.0); CO2 24.7 mmol/L (21.0-32.0); CREATININE 0.8 mg/dL (0.55-1.02); Calcium 8.6 mg/dL (8.5-10.1); Chloride 101 mmol/L (98-107); Estimated GFR 99.09 (mL/min/1.73m2); Glucose 77 mg/dL (74-106); Potassium 3.8 mmol/L (3.5-5.1); Sodium 136 mmol/L (136-145); Total Protein 7.5 g/dL (6.4-8.2)
[2022-09-10 10:33] LABS: IgE 159 IU/mL (<158)
[2022-09-10 12:44] LABS: Leukemia/Lymphoma by FC (Blood (See below)
[2022-09-11 15:58] LABS: Fungitell Qualitative Negative (Negative); Fungitell Quantitative Value <31 pg/mL (<60 pg/mL)
== END 2022-09-09 15:26 | disposition home or self-care (01) ==
LOC: LBO 15:28
PROVIDERS: PCP Family Medicine; Visit Provider Student in an Organized Health Care Education/Training Program
DX: D72.110 Idiopathic hypereosinophilic syndrome [IHES] (principal)
CPT/HCPCS: 36415; 80053; 87449; 88185; 82784; 82785; 82787; 85025; 88184; 88189

== ENCOUNTER 2022-09-09 15:39 | Outpatient (CLI) | payer MEDICARE, MEDICAID, SELFPAY ==
[2022-09-09] MEDS: Omnipaque 350 MG/ML 100 ML BTL 60 ML IJ (15:15)
--- NOTE | 2022-09-09 15:15 | DI.CT_ITS ---
Exam(s) CT CHEST PE CTA EXAM: CT CHEST PE CTA CLINICAL HISTORY: Dyspnea, R06.00; tachycardia, R00.00; h/o metastatic calcification of lungs. TECHNIQUE: Imaging Protocol: Axial CT angiography was performed with multi-slice acquisition and mu lti-planar reconstructions as well as axial, coronal and sagittal MIP reconstructions. CONTRAST MATERIAL: Intravenous: Omnipaque 350 Contrast volume:60 cc COMPARISON: CT CT CHEST W from 12/11/[address] ABDOMEN PELVIS WO from 05/31/2022 CR XR CHEST 2V PA LATERAL from 07/16/2022 FINDINGS: Pulmonary Arteries: No evidence of filling defect to suggest pulmonary emboli. Tracheobronchial tree: Patent where visualized. Mediastinum and Jeanine: No dominant adenopathy or fluid collection. Pulmonary parenchyma: No consolidation or dominant measurable mass. Stable appearance of poorly defin ed centrilobular nodules. No kaylin visible calcifications. Findings could represent pulmonary calci nosis.. Scarring and suture material posterior left upper lobe. . Pleura: No effusion or pneumothorax. Heart: The heart is not dilated. No coronary artery calcifications are seen. Aorta: Thoracic aorta non-dilated. No aneurysm. No dissection. Upper abdomen: Unremarkable. Bones: Unremarkable for age. Tubes, Catheters, and Lines: None IMPRESSION: No evidence of pulmonary embolism. Chronic poorly defined centrilobular nodules consistent with metastatic calcification/pulmonary calci nosis. RADIATION DOSE DELIVERED: 258.66mGy.cm Total DLP DATA REPOSITORY: All CT scans at this facility are submitted to the National Radiology Data Registry (NRDR) Dose Index Registry (DIR) with the [employer] (ACR). RADIATION OPTIMIZATION: All CT scans at this facility use at least one of these dose optimization te chniques: automated exposure control; mA and/or kV adjustment per patient size (includes targeted exa ms where dose is matched to clinical indication); or iterative reconstruction.
[2022-09-09] MEDS: Normal Saline - Diluent 50 ML VIAL IJ (15:16)
== END 2022-09-09 15:59 ==
LOC: DI 15:39
PROVIDERS: PCP Family Medicine; Visit Provider Student in an Organized Health Care Education/Training Program
DX: R06.00 Dyspnea, unspecified (principal); J98.4 Other disorders of lung; R00.0 Tachycardia, unspecified
CPT/HCPCS: 36415; 71275; 80053; 87449; 88185; 82784; 82785; 82787; 85025; 88184; 88189; J3490

== ENCOUNTER 2022-12-07 08:28 | Emergency (ER) | payer MEDICARE, MEDICAID, SELFPAY ==
--- NOTE | 2022-12-07 08:30 | RT.EKG_ITS ---
APPROVED REPORT Exam: Resting ECG Reason for Exam: sob Patient Location: E HR:115 bpm ECG Measurements Heart Rate 115 AXIS SC 153 P 79 QRSd 90 QRS 73 QT 340 T 72 QTc 471 Conclusion Sinus Rhythm Tachycardia Otherwise normal ECG
[2022-12-07 08:48] VITALS: PULSE 116; RESP 22; RESP 8; O2SAT 98
[2022-12-07] MEDS: Albuterol/Ipratropium 3 ML UPD VIAL 6 ML UPD (08:48)
[2022-12-07 09:15] VITALS: BP 128/76; PULSE 114; RESP 22; TEMP 36.8
--- NOTE | 2022-12-07 09:15 | DI.CT_ITS ---
Exam(s) CT CHEST PE ABD PELVIS W EXAM: CT CHEST PE ABD PELVIS W CLINICAL HISTORY: tachycardia, post op 6 weeks. TECHNIQUE: Imaging Protocol: Axial CT angiography was performed with multi-slice acquisition and mu lti-planar and/or 3D reconstructions. CONTRAST MATERIAL: Intravenous: Omnipaque 350 Contrast volume:100 ml COMPARISON: CT CHEST WITHOUT CONTRAST from 11/26/[address] CHEST WO from 12/03/[address] ABDOMEN PELVIS W from 12/03/[address] CHEST W from 12/11/[address] ABDOMEN PELVIS WO from 05/31/[address] CHEST PE CTA from 09/09/2022 FINDINGS: CHEST: Pulmonary Arteries: No evidence of filling defects to suggest pulmonary emboli. Tracheobronchial tree: No bronchiectasis or mucus plugging. Mediastinum and Jeanine: No dominant adenopathy or fluid collection. Pulmonary parenchyma: Patchy bilateral infiltrates, similar to prior exams. Suture material noted roro ng apex. No consolidation or dominant measurable mass. Pleura: No effusion. No pneumothorax. Heart: The heart is notdilated. No coronary artery calcifications are seen. Aorta: Thoracic aorta non-dilated. Bones: Unremarkable for age. Tubes, Catheters, and Lines: None. ABDOMEN and PELVIS: Exam mildly limited by motion. Liver: Normal size. Normal density. No suspicious measurable mass. Portal, Superior Mesenteric, and Splenic Veins: Unremarkable. Gallbladder and Biliary Tract: No radiodense calculus. No biliary dilatation. Pancreas: Normal density, no abnormal calcifications or inflammatory process. Spleen: Normal. Adrenals: No masses seen. Kidneys: Normal size, contour and axis. No radiodense stones. No obstructive uropathy. No masses seen . Vasculature: Abdominal aorta non-dilated. Bowel: No obstruction or bowel wall thickening. No evidence of appendicitis. Peritoneal Cavity: No ascites, collection or mesenteric inflammatory response. Lymph Nodes: Within normal limits. Soft Tissues: Unremarkable. Bladder: Symmetric distention, no gross wall thickening. Reproductive Organs: Unremarkable as visualized. Lymph Nodes: Within normal limits. Bones: Unremarkable for age.. IMPRESSION: 1. No evidence of pulmonary embolism. Stable appearance bilateral patchy bilateral ground-glass inf iltrates over many years. Clinical correlation recommended.. 2. No acute abdominal or pelvic process. RADIATION DOSE DELIVERED: Total DLP DATA REPOSITORY: All CT scans at this facility are submitted to the National Radiology Data Registry (NRDR) Dose Index Registry (DIR) with the [employer] (ACR). RADIATION OPTIMIZATION: All CT scans at this facility use at least one of these dose optimization te chniques: automated exposure control; mA and/or kV adjustment per patient size (includes targeted exa ms where dose is matched to clinical indication); or iterative reconstruction.
[2022-12-07 09:28] LABS: COVID-19 PCR Negative (Negative); Influenza A PCR Negative (Negative); Influenza B PCR Negative (Negative); RSV PCR Negative (Negative); Source Nasopharynx
[2022-12-07 09:58] LABS: Abs Immature Grans 0.06 10^3/uL (0.0-0.06); Absolute Lymphocyte Count 1.81 10^3/uL (1.2-3.4); Basophils % 0.4; HCT 35.2 % (36.0-46.0); Immature Grans % 0.4; MCH 30.4 pg (27.0-33.0); MCHC 34.1 % (32.0-36.0); MCV 89 fL (80-95); MPV 7.9 fL (8.0-11.0); Neutrophils % 79.2; Platelet Count 433 10^3/uL (130-400); RBC 3.95 10^6/uL (3.93-5.22); RDW 15.9 % (11.7-14.6); RDW-SD 51.9 fL; WBC 13.94 10^3/uL (4.4-10.8)
[2022-12-07 10:00] LABS: Absolute Basophil Count 0.06 10^3/uL (0.0-0.2); Absolute Monocyte Count 0.98 10^3/uL (0.1-0.8); Absolute Neutrophil Count 11.04 10^3/uL (1.2-6.7)
[2022-12-07 10:03] VITALS: TEMP 36.8
[2022-12-07 10:14] LABS: ALT 28 U/L (14-59); AST 22 U/L (15-37); Albumin 3.6 g/dL (3.4-5.0); Alkaline Phosphatase 113 U/L (46-116); BUN 9 mg/dL (7-18); Bilirubin, Total 0.3 mg/dL (0.2-1.0); CREATININE 0.9 mg/dL (0.55-1.02); Chloride 102 mmol/L (98-107); Estimated GFR 86.03 (mL/min/1.73m2); Glucose 129 mg/dL (74-106); Lipase 30 U/L (16-77); Potassium 3.5 mmol/L (3.5-5.1); Sodium 135 mmol/L (136-145); Total Protein 7.6 g/dL (6.4-8.2); Troponin I < 50 ng/L (<or=60)
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
[2022-12-07 10:28] LABS: HCG Qual (Serum) Negative
[2022-12-07 10:38] VITALS: RESP 22
[2022-12-07] MEDS: Normal Saline Flush 10 ML SYR IVP ×2 (10:45→12:41)
[2022-12-07] MEDS: Omnipaque 350 MG/ML 100 ML BTL IJ (10:53)
[2022-12-07] MEDS: ACETAMINOPHEN 1,000 MG/100 ML BTL 400 MG IVPB (11:06)
[2022-12-07] MEDS: Lactated Ringers 1,000 ML 1000 ML IV (11:07)
--- NOTE | 2022-12-07 11:59 | DI.VRAD_ITS ---
PROCEDURE INFORMATION: Exam: CTA Chest With Contrast Exam date and time: 12/07/2022 10:42 AM Age: 32 years old Clinical indication: Other: Cough; Abdominal pain; Localized; Lower; Prior surgery; Surgery date: 1-6 months; Surgery type: Colorectal TECHNIQUE: Imaging protocol: Computed tomographic angiography of the chest with contrast. Exam focused on the arteries. 3D rendering (Not supervised by radiologist): MIP and/or 3D reconstructed images were created by the technologist. COMPARISON: CT CHEST PE CTA 09/09/2022 3:14 PM FINDINGS: Pulmonary arteries: No evidence of pulmonary embolus to the segmental level. Aorta: No aneurysm of the aorta. No dissection of the aorta. Lungs: Patchy bilateral ground-glass opacities may represent multifocal pneumonia.. Pleural spaces: Unremarkable. No pneumothorax. No pleural effusion. Heart: Unremarkable. No cardiomegaly. No pericardial effusion. Lymph nodes: Unremarkable. No enlarged lymph nodes. Bones/joints: Healing right rib fractures Soft tissues: Unremarkable. IMPRESSION: 1. No evidence of pulmonary embolus to the segmental level. 2. No aneurysm of the aorta. 3. No dissection of the aorta. 4. Patchy bilateral ground-glass opacities may represent multifocal pneumonia.. PROCEDURE INFORMATION: Exam: CT Abdomen And Pelvis With Contrast Exam date and time: 12/07/2022 10:42 AM Age: 32 years old Clinical indication: Other: Cough; Abdominal pain; Localized; Lower; Prior surgery; Surgery date: 1-6 months; Surgery type: Colorectal TECHNIQUE: Imaging protocol: Computed tomography of the abdomen and pelvis with contrast. 3D rendering (Not supervised by radiologist): MIP and/or 3D reconstructed images were created by the technologist. COMPARISON: CT ABDOMEN PELVIS WO 05/31/2022 1:49 PM FINDINGS: Liver: Subcentimeter low attenuation area in the liver is too small for characterization. Gallbladder and bile ducts: Normal. No calcified stones. No ductal dilation. Pancreas: Normal. No ductal dilation. Spleen: Normal. No splenomegaly. Adrenal glands: Normal. No mass. Kidneys and ureters: Normal. No hydronephrosis. Stomach and bowel: Unremarkable. No obstruction. No mucosal thickening. Appendix: No evidence of appendicitis. Intraperitoneal space: Unremarkable. No free air. No significant fluid collection. Vasculature: Unremarkable. No abdominal aortic aneurysm. Lymph nodes: Unremarkable. No enlarged lymph nodes. Urinary bladder: Unremarkable as visualized. Reproductive: Unremarkable as visualized. Bones/joints: Unremarkable. No acute fracture. Soft tissues: Unremarkable. IMPRESSION: No acute process Dictated and Authenticated by: Angelina Lopez MD. Ordering:BELINDA Cárdenas MD
[2022-12-07] MEDS: Ondansetron 4 MG/2 ML VIAL IVP (12:40)
[2022-12-07 13:07] VITALS: PULSE 98; RESP 18; O2SAT 96
[2022-12-07 13:51] VITALS: TEMP 36.8; O2SAT 96
--- NOTE | 2022-12-10 12:52 | NUR.NOTE ---
Accessed chart to list antibiotics on the cultures results
== END 2022-12-07 13:08 | disposition home or self-care (01) ==
PROVIDERS: Emergency Provider Physician Assistant; PCP Family Medicine
DX: J40 Bronchitis, not specified as acute or chronic (principal); R11.0 Nausea; R00.0 Tachycardia, unspecified; J45.909 Unspecified asthma, uncomplicated; Z20.822 Contact with and (suspected) exposure to COVID-19
CPT/HCPCS: 71275; 74177; 80053; 83690; 86850; 86900; 86901; 87637; 93005; 94640; 96361; 96372; 96374; 96375; 99285; 84484; 84703; 85025; 87070; 87205; 93010; J0131; J2405; J3490; J7512; J7620

== ENCOUNTER 2023-05-20 15:37 | Outpatient (REF) | payer MEDICARE, MEDICAID, SELFPAY | END 2023-05-20 15:38 | disposition home or self-care (01) | LOC: LBN 15:37 | PROVIDERS: PCP Family Medicine; Referring Provider Nurse Practitioner Family; Visit Provider Nurse Practitioner Family | DX: J02.9 Acute pharyngitis, unspecified (principal) | CPT/HCPCS: 87070 ==

== ENCOUNTER 2023-10-08 01:28 | Outpatient (CLI) | payer MEDICARE, MEDICAID, SELFPAY ==
--- NOTE | 2023-10-08 10:18 | DI.RAD_ITS ---
Exam(s) XR CERVICAL SPINE COMP 4-5V EXAM: XR CERVICAL SPINE COMP 4-5V CLINICAL HISTORY: NECK PAIN, M54.2. TECHNIQUE: 2D digital imaging was performed. COMPARISON: No exams were available for comparison FINDINGS: Six views No evidence of fracture or listhesis. No offset of the spinal laminar line although there is some st raightening of the cervical curvature evident. There is significant disc space narrowing at C5-6 level and there are small bilateral Luschka joint o steophytes at this level. There is also moderate disc space narrowing at C6-7 level. Other disc spa al exhibit normal height. There are no cervical ribs. No facet joint malalignment. There are mini mal if any degenerative changes in the facet joints IMPRESSION: Chronic disc space narrowing at C5-6 and C6-7 levels. DATA REPOSITORY: RADIATION DOSE DELIVERED:
== END 2023-10-08 01:48 ==
LOC: DI 01:28
PROVIDERS: PCP Family Medicine; Visit Provider Family Medicine
DX: M50.122 Cervical disc disorder at C5-C6 level with radiculopathy (principal)
CPT/HCPCS: 72050

== ENCOUNTER 2023-10-28 10:13 | Emergency (ER) | payer MEDICARE, MEDICAID, SELFPAY ==
[2023-10-28 10:13] VITALS: BP 150/109; PULSE 103; RESP 16; O2SAT 98
--- NOTE | 2023-10-28 10:15 | DI.CT_ITS ---
Exam(s) CT BRAIN NECK CTA EXAM: CT BRAIN NECK CTA CLINICAL HISTORY: L. sided numbness and weakness, eval stroke. TECHNIQUE: Imaging Protocol: Axial CT angiography was performed with multi-slice acquisition and mu lti-planar and/or 3D reconstructions. CONTRAST MATERIAL: Intravenous: Omnipaque 350 Contrast volume:structured data in ml COMPARISON: CT CT HEAD WO from 10/07/2021 FINDINGS: CTA Neck W: Aortic arch anatomy: The aortic arch anatomy is conventional and there is no significant stenosis at the origin of the great vessels off of the aortic arch. No intimal flap evident. Anterior circulation: Both common carotid arteries ascend with normal luminal diameters. At the level the carotid bulbs and proximal internal carotid arteries there is minimal plaque without hemodynamically significant stenosis evident. Posterior circulation: Both vertebral arteries originate in conventional fashion off of the subclavian arteries and there is no obvious stenosis at the origin of the vertebral arteries. Both vertebral arteries exhibit normal luminal diameters within the foramen transversarium. Left vertebral artery is dominant. Both vertebral arteries contribute to the formation of the basilar artery at the skull base. CTA Brain W: Anterior circulation: Both internal carotid arteries are patent in the skull base-carotid canals as well as within the cave rnous sinuses. The supraclinoid aspects of the ICAs are patent. Both A1 segments are patent as are the anterior cer ebral arteries and there is no evidence of aneurysm at the level of the anterior communicating artery . Both middle cerebral arteries are patent with no evidence of significant stenosis nor intraluminal th rombus. There also no aneurysms of these vessels. Posterior circulation: The basilar artery ascends in the midline. Distally it gives off patent bilateral superior cerebella r arteries. Above this level the basilar artery terminates as patent bilateral posterior cerebral arteries. There appears to be a stenosis in the P2 segment of the right posterior cerebral artery. There is no evidence of aneurysm at the tip of the basilar artery nor elsewhere in the [id number] is. CT BRAIN: There is no evidence of intracranial hemorrhage, mass effect, or shift of midline structures. There are no extra-axial fluid collections. Ventricles are not enlarged or shifted. There are no ring enh ancing lesions in the brain and no abnormal meningeal enhancement. Mucosal thickening and fluid noted in both maxillary sinuses.. Mucosal thickening also noted in the sphenoid sinuses. Frontal sinuses are not developed. Mastoid air cells are clear. IMPRESSION: 1. Patent carotid arteries in the neck. No hemodynamically significant stenosis. 2. Patent vertebral arteries. 3. Patent anterior intracranial arteries. There appears to be a stenosis in the P2 segment of the r ight posterior cerebral artery. No aneurysms. No evidence of vascular malformation. 4. Given this patient's symptoms recommend follow-up brain MRI/MRA RADIATION DOSE DELIVERED: 1,897.97mGy.cm Total DLP DATA REPOSITORY: All CT scans at this facility are submitted to the National Radiology Data Registry (NRDR) Dose Index Registry (DIR) with the [employer] ([employer]). RADIATION OPTIMIZATION: All CT scans at this facility use at least one of these dose optimization te chniques: automated exposure control; mA and/or kV adjustment per patient size (includes targeted exa ms where dose is matched to clinical indication); or iterative reconstruction.
--- NOTE | 2023-10-28 10:15 | RT.EKG_ITS ---
APPROVED REPORT Exam: Resting ECG Reason for Exam: L. sided weakness Patient Location: E HR:98 bpm ECG Measurements Heart Rate 98 AXIS IA 194 P 32 QRSd 98 QRS 35 QT 355 T 54 QTc 454 Conclusion Sinus rhythm, rate 98 No interval abnormalities No ectopy No STEMI Compared to priors rate now normal, otherwise no significant changes
[2023-10-28] MEDS: Normal Saline - Diluent 50 ML VIAL IJ (10:29)
[2023-10-28] MEDS: Omnipaque 350 MG/ML 100 ML BTL 70 ML IJ (10:30)
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
[2023-10-28 10:49] LABS: Abs Immature Grans 0.03 10^3/uL (0.0-0.06); Absolute Basophil Count 0.09 10^3/uL (0.0-0.2); Absolute Eosinophil Count 0.02 10^3/uL (0.0-0.7); Absolute Lymphocyte Count 1.19 10^3/uL (1.2-3.4); Absolute Monocyte Count 0.62 10^3/uL (0.1-0.8); Absolute Neutrophil Count 6.81 10^3/uL (1.2-6.7); Eosinophils % 0.2 %; HCT 36.4 % (36.0-46.0); HGB 11.6 g/dL (11.2-15.7); Immature Grans % 0.3 %; Lymphocytes % 13.6 %; MCH 27.9 pg (27.0-33.0); MCHC 31.9 % (32.0-36.0); MCV 88 fL (80-95); MPV 8.3 fL (8.0-11.0); Monocytes % 7.1 %; Neutrophils % 77.8 %; Platelet Count 463 10^3/uL (130-400); RBC 4.16 10^6/uL (3.93-5.22); RDW 16.7 % (11.7-14.6); RDW-SD 53.4 fL; WBC 8.76 10^3/uL (4.4-10.8)
[2023-10-28 11:00] LABS: INR 0.9 (0.9-1.1); Prothrombin Time 9.5 sec (9.1-11.1)
--- NOTE | 2023-10-28 11:05 | NUR.NOTE ---
Nursing Note: pt arrived back from CT, this nurse went to place BP cuff, pulse ox, tele monitor and pt declined monitoring. she stated no matter what the thing beeps and it drives me fucking crazy, don't put those things on me
[2023-10-28 11:08] LABS: ALT 44 U/L (14-59); AST 38 U/L (15-37); Albumin 3.7 g/dL (3.4-5.0); Alkaline Phosphatase 103 U/L (46-116); Anion Gap 6.9 mmol/L (3-11); BUN 7 mg/dL (7-18); Bilirubin, Total 0.38 mg/dL (0.2-1.0); CO2 28.1 mmol/L (21.0-32.0); CREATININE 0.8 mg/dL (0.55-1.02); Calcium 9.1 mg/dL (8.5-10.1); Chloride 101 mmol/L (98-107); Estimated GFR 98.48 (mL/min/1.73m2); Glucose 88 mg/dL (74-106); Magnesium 2.1 mg/dL (1.8-2.4); Potassium 3.6 mmol/L (3.5-5.1); Sodium 136 mmol/L (136-145); Total Protein 7.7 g/dL (6.4-8.2)
[2023-10-28 11:09] LABS: Troponin I < 4 ng/L (<or=51)
[2023-10-28] MEDS: Acetaminophen 500 MG TAB 1000 MG PO (11:09)
[2023-10-28 12:02] VITALS: BP 160/108; PULSE 82; RESP 18; O2SAT 99
[2023-10-28 12:21] VITALS: O2SAT 99
== END 2023-10-28 13:10 | disposition left against medical advice (07) ==
PROVIDERS: Emergency Provider Emergency Medicine; PCP Family Medicine
DX: I10 Essential (primary) hypertension; E03.9 Hypothyroidism, unspecified; Z53.29 Procedure and treatment not carried out because of patient's decision for other reasons; R20.0 Anesthesia of skin; H53.9 Unspecified visual disturbance
CPT/HCPCS: 70496; 70498; 80053; 81025; 93005; 99285; 83735; 84484; 85025; 85610; 93010; 99284; J3490

== ENCOUNTER 2023-10-29 09:27 | Emergency (ER) | payer MEDICARE, MEDICAID, SELFPAY ==
[2023-10-29] VITALS (8 sets, daily range): BP systolic 140–171; BP diastolic 96–119; PULSE 85–109; RESP 15–26; TEMP 36.1–36.6; O2SAT 93–99
--- NOTE | 2023-10-29 09:45 | RT.EKG_ITS ---
APPROVED REPORT Exam: Resting ECG Reason for Exam: baseline/screening Patient Location: E HR:94 bpm ECG Measurements Heart Rate 94 AXIS GA 152 P 14 QRSd 96 QRS 43 QT 360 T 51 QTc 451 Conclusion Sinus rhythm...normal P axis, V-rate 60- 99
--- NOTE | 2023-10-29 09:45 | DI.MRI_ITS ---
Exam(s) MR BRAIN WO/W EXAM: MR BRAIN WO/W CLINICAL HISTORY: L sided weakness, hx IVDU TECHNIQUE: Multiplanar multisequence MRI of the brain was performed. Both noninfused and contrast i nfused sequences were performed. IV Contrast injected was cc Dotarem. COMPARISON: MR MR ANGIO BRAIN WO from 10/29/[address] HEAD - STROKE PROTOCOL from 10/29/2023 FINDINGS: CEREBRAL PARENCHYMA: Larger area of signal abnormality and restricted diffusion in territory of the r ight posterior cerebral artery involving the right occipital lobe, right temporal lobe, and also the right thalamus. Findings consistent with large nonhemorrhagic infarct in the territory of the occlud ed right posterior cerebral artery, as seen on recent imaging. No hemorrhage and only mild mass effe ct with no shift of midline structures. No ventricular enlargement nor shift. On DWI there are also a few small peripheral foci of restricted diffusion in the lateral left cerebel lar hemisphere which are possibly significant, not having appearance of typical artifact. SWI: No microhemorrhages evident. Foot there is no evidence of ring-enhancing lesions in the area of abnormal signal nor elsewhere in t he brain. No abnormal meningeal enhancement. PITUITARY GLAND: No mass nor parasellar abnormality. No obvious abnormality in the cavernous sinuses. FLOW VOIDS: Anterior circulation flow voids are present. With respect of the posterior circulation, the flow void within the right posterior cerebral artery terminates approximately 5 mm distal to the origin of this vessel, consistent with MRA findings PARANASAL SINUSES: Abundant mucosal thickening and fluid in both maxillary sinuses. Also mucosal thi ckening in the sphenoid sinuses. Frontal sinuses are not developed. Mastoid air cells are clear. ORBITS: No obvious abnormal findings. IMPRESSION: 1. 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 This involves the right occipital lobe, right temporal lobe and right thalamus. 2. There are a few small foci of signal abnormality and restricted diffusion in the lateral aspect o f the left cerebellar hemisphere also consistent with ischemic findings. Please note that this is on the opposite-left side of the posterior circulation. 3. No abnormal enhancing intracranial findings. There are no ring enhancing lesions in the brain and there is no abnormal meningeal enhancement. Report called by myself to ER provider 10/29/2023 at 1:22 p.m. DATA REPOSITORY:
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
--- NOTE | 2023-10-29 09:59 | DI.CT_ITS ---
Exam(s) CT HEAD - STROKE PROTOCOL EXAM: CT HEAD - STROKE PROTOCOL CLINICAL HISTORY: L sided weakness. TECHNIQUE: Imaging Protocol: Axial computed tomography images with coronal and sagittal reformatted images were created and reviewed COMPARISON: CT CT BRAIN NECK CTA from 10/28/2023 FINDINGS: There are no skull fractures. Fluid is again noted in the maxillary sinuses. There is now a significant area of abnormal hypodensity in the right occipital lobe consistent with n onhemorrhagic infarct. This measures approximately 5 cm AP by 3 cm wide by 3 cm craniocaudal. Ventricles are not enlarged or shifted and there is no blood within the ventricular system nor within the basal cisterns. No evidence of infarct in the cerebellar hemispheres. IMPRESSION: Right occipital lobe infarct now evident. Report called by myself to ER provider 10/29/2023 at 10:15 a.m. RADIATION DOSE DELIVERED: 851.22mGy.cm Total DLP DATA REPOSITORY: All CT scans at this facility are submitted to the National Radiology Data Registry (NRDR) Dose Index Registry (DIR) with the [employer] (ACR). RADIATION OPTIMIZATION: All CT scans at this facility use at least one of these dose optimization te chniques: automated exposure control; mA and/or kV adjustment per patient size (includes targeted exa ms where dose is matched to clinical indication); or iterative reconstruction.
--- NOTE | 2023-10-29 09:59 | DI.MRI_ITS ---
Exam(s) MR CERVICAL SPINE WO/W EXAM: MR CERVICAL SPINE WO/W CLINICAL HISTORY: L sided weakness, hx IVDU TECHNIQUE: Multiplanar multisequence MRI of the cervical spine was performed without intravenous con trast. COMPARISON: CR XR CERVICAL SPINE COMP 4-5V from 10/08/2023 FINDINGS: CERVICOMEDULLARY JUNCTION: Intact with no evidence of cerebellar tonsillar ectopia. No obvious abnor mality of the odontoid process. No evidence of Chiari 1 malformation. CERVICAL SPINAL CORD: There is no abnormal signal in the cervical spinal cord and no evidence of foca l cord atrophy nor focal cord swelling. OSSEOUS:There are no cervical fractures evident. No significant osseous lesions in the cervical vert ebrae. INDIVIDUAL LEVELS: C2-3: No disc herniation nor central canal stenosis. No foraminal stenosis. No facet arthropathy. C3-4: No disc herniation nor central canal stenosis.No facet arthropathy. No foraminal stenosis. C4-5: No disc height. No disc herniation or central canal stenosis. No facet arthropathy. No jossie inal stenosis.. C5-6: This level exhibits chronic disc space narrowing and anterior osseous lipping as well as Modic type 2 sub endplate marrow fatty changes. There are bilateral Luschka joint osteophytes/disc complex es, larger on the right side. This results in moderate right-sided foraminal stenosis at this level. On the left side there is milder foraminal stenosis. There are mild degenerative facet joint fatima es bilaterally. There is no dominant disc herniation at this level. Central canal dimensions are lo wer normal. C6-7: This level also exhibits chronic disc space narrowing. Left-sided disc-Luschka joint osteophyt e complex noted at this level. Results in moderate left-sided foraminal stenosis. Similar finding i s not seen on the right side at this level and there is no foraminal stenosis on the right side. Joaquín tral canal dimensions are lower normal. There is no significant facet arthropathy at this level. C7-T1: No disc herniation nor central canal stenosis. No facet arthropathy.No foraminal stenosis. IMPRESSION: 1. Multilevel degenerative disc disease at C5-6 and C6-7 levels, as described above. 2. At C6-7 level there is asymmetric left-sided disc-Luschka joint osteophyte complex which results i n moderate left-sided foraminal stenosis. Similar findings are not seen on the right side at this le steve. No central canal stenosis. 3. At C5-6 level there are bilateral Luschka joint disc complexes which are slightly more prominent o n the right side with more prominent foraminal stenosis on the right side at this level. Central can al dimensions are lower normal at this level. 4. No abnormal soft tissue enhancement. No evidence of epidural abscess. Called by myself to ER provider following completion of this study 10/29/2023. DATA REPOSITORY:
[2023-10-29 11:00] LABS: Abs Immature Grans 0.03 10^3/uL (0.0-0.06); Absolute Basophil Count 0.08 10^3/uL (0.0-0.2); Absolute Eosinophil Count 0.06 10^3/uL (0.0-0.7); Absolute Lymphocyte Count 1.34 10^3/uL (1.2-3.4); Absolute Monocyte Count 0.69 10^3/uL (0.1-0.8); Absolute Neutrophil Count 8.04 10^3/uL (1.2-6.7); Basophils % 0.8 %; Eosinophils % 0.6 %; HCT 40.9 % (36.0-46.0); HGB 12.6 g/dL (11.2-15.7); Immature Grans % 0.3 %; Lymphocytes % 13.1 %; MCH 27.4 pg (27.0-33.0); MCHC 30.8 % (32.0-36.0); MCV 89 fL (80-95); MPV 9.1 fL (8.0-11.0); Monocytes % 6.7 %; Neutrophils % 78.5 %; Platelet Count 446 10^3/uL (130-400); RDW 16.9 % (11.7-14.6); RDW-SD 54.6 fL; WBC 10.24 10^3/uL (4.4-10.8)
[2023-10-29] MEDS: Aspirin 325 MG TAB PO (11:00)
--- NOTE | 2023-10-29 11:00 | NUR.NOTE ---
Nursing Note: At pt bedside to place IV via ultrasound due to difficult stick. Pt refuses an ultrasound guided IV to be placed, states she just wants us to do it regularly. Pt states the ultrasound IV's go too deep and she doesn't want that. Pt was educated that I would be using the same size and length IV that I would use without the ultrasound. Pt continues to refuse ultrasound IV. IV placed in right arm, labs were drawn but before dressing could be secured pt coughed and accidently pulled out the IV. Provider made aware of the above and is at the bedside to discuss ultrasound IV placement.
[2023-10-29 11:01] LABS: ESR 11 mm/hr (0-20)
[2023-10-29 11:02] LABS: Lactate 2.7 mmol/L (0.6-1.4)
--- NOTE | 2023-10-29 11:30 | DI.MRI_ITS ---
Exam(s) MR ANGIO BRAIN WO EXAM: MR ANGIO BRAIN WO CLINICAL HISTORY: infarct vs abscess in brain TECHNIQUE: Performed on 1.5 zack unit with [id number] sequence COMPARISON: CT CT BRAIN NECK CTA from 10/28/2023 FINDINGS: ANTERIOR CIRCULATION: Both internal carotid arteries are patent in the skull base and cavernous sinus es. The supraclinoid aspects of these vessels are patent. Both A1 segments are patent as are the an terior cerebral arteries and there is no evidence of aneurysm at the level of the anterior communicat ing artery. Both middle cerebral arteries are patent. No significant stenosis. No aneurysms in these vessels wh ich are visualized out to the sylvian fissure branches. POSTERIOR CIRCULATION: The basilar artery is formed by contribution from both vertebral arteries at the skull base and the basilar artery ascends in the midline with normal luminal diameter. Distally it gives off superior c erebellar arteries. Above this level terminates as a patent left posterior cerebral artery. The rig ht posterior cerebral artery is occluded just distal to its origin. No aneurysm of the tip of the basilar artery nor elsewhere in the [id number] Abnormal brain signal noted in the territory of the right posterior cerebral artery. See separate MR I report. No evidence of vascular malformation. No evidence of venous sinus thrombosis. IMPRESSION: 1. There is occlusion of the right posterior cerebral artery. This is commensurate with the findings of acute infarct in the right occipital lobe. The left posterior cerebral artery is patent. 2. Anterior circulation vessels are patent 3. See separate abnormal brain MRI report. Report called by myself to ER provider 10/29/2023 at 11:56 a.m. DATA REPOSITORY:
[2023-10-29 11:31] LABS: ALT 42 U/L (14-59); AST 34 U/L (15-37); Albumin 3.9 g/dL (3.4-5.0); Alkaline Phosphatase 107 U/L (46-116); Anion Gap 9.8 mmol/L (3-11); BUN 5 mg/dL (7-18); Bilirubin, Total 0.37 mg/dL (0.2-1.0); CO2 26.2 mmol/L (21.0-32.0); CREATININE 0.8 mg/dL (0.55-1.02); Calcium 9.7 mg/dL (8.5-10.1); Chloride 104 mmol/L (98-107); Estimated GFR 98.48 (mL/min/1.73m2); Glucose 88 mg/dL (74-106); Magnesium 2.3 mg/dL (1.8-2.4); Potassium 3.7 mmol/L (3.5-5.1); Sodium 140 mmol/L (136-145); Total Protein 8.1 g/dL (6.4-8.2)
[2023-10-29 11:32] LABS: C-Reactive Protein < 0.50 mg/dL (<or=0.5); ETHANOL BLOOD < 3.0 mg/dL (<10)
[2023-10-29 11:50] LABS: FREE T4 1.06 ng/dL (0.76-1.46)
[2023-10-29] MEDS: Gadoterate meglumine 20 ML SYRINGE 9 ML IVP (12:47)
[2023-10-29] MEDS: Albuterol HFA 8 GM 60 PUFF INH IH ×2 (13:48→18:21)
[2023-10-29] MEDS: Inhaler, Assist Device 1 EACH MC (13:51)
[2023-10-29 13:57] LABS: *AMPHETAMINES SCREEN URINE Positive (Negative); *BARBITURATES SCREEN URINE Negative (Negative); *BENZODIAZEPINES SCREEN URINE Negative (Negative); Cannabinoids THC Positive (Negative); Cocaine Screen,Urine Negative (Negative); METHADONE URINE SCREEN Negative (Negative); OPIATES URINE SCREEN Negative (Negative)
[2023-10-29 13:58] LABS: Tricyclic Antidepressants Negative (Negative)
[2023-10-29] MEDS: Acetaminophen 500 MG TAB 1000 MG PO (14:06)
--- NOTE | 2023-10-29 15:41 | NUR.NOTE ---
Nursing Note: patient has been educated multiple times during stay in the department the importance of continuous monitoring. She has voiced to this nurse that she will just take the wires off if it beeps one time. Tele leads are off at this time/
--- NOTE | 2023-10-29 17:28 | W.EDPROG ---
Date of service: 10/29/23 Time of Service: 17:28 Medical Decision Making Informed by my colleague that patient is to be transferred to [facility] for CVA. However not officially signed out to me. I did take over care of the patient pending transfer due to bed availability may not be until 24 hours. Called to the bedside by staff analyst, according to [facility] she is on urgent transfer list and may not be transferred until tomorrow. Patient is requesting her daily medications including clonazepam. 0.53 times a day ordered, her Adderall and gabapentin. Blood pressure is 140/119 however patient does have a history of hypertension. Will await to see what these normal medications to do before giving her labetalol. Patient is requesting to leave AMA she is alert and oriented x 5. She is well aware of her situation. She is very agitated and is cussing at staff. She is threatening to take out her IV. Encouraged to stay. Patient was given her gabapentin clonazepam 1 mg and Adderall she was fed dinner earlier. She is refusing to be placed on the monitor. At this time patient is opting to leave AGAINST MEDICAL ADVICE, patient is aware of her situation, she does have an acute on chronic stroke, patient is ANO x 7 she is able to give me her address apartment she knows name date of and situation. Patient requesting to leave AMA. The patient appears clinically sober and is not under the influence of any known substances. Discussed risks and benefits with patient. Patient verbalizes understanding of situation and the risks of leaving including worsening condition, developing disability, including but not limited to . Discussed results of labs and imaging, if they were performed and recommendations for further treatment and/or observation. The patient verbalizes understanding of the results discussed. At this time patient has opted to leave against medical advice. Patient is alert and oriented and has the capacity to make own decisions. Paperwork was signed by patient and I witnessed in the RN witnessed as well. This text was generated using [employer] Systemsation system, please disregard any oddities of phrase or misspellings. Medical Records Medical records reviewed: Yes I reviewed the patient's medical records. Quality:SDOH Health Related Social Needs: No Data to Display Discharge Plan Disposition Patient Disposition: Against Medical Advice Condition: Serious Discharge Details Clinical Impression: Cerebrovascular accident Primary Care Provider: Darryl Medina ED Provider: Millie Shen Home Meds and New Rx's Prescriptions: No Action prednisone 10 mg tablet 10 mg PO DAILY fluticasone propionate 50 mcg/actuation spray,suspension 2 spray NS BID PRN (Reason: allergy symptoms) Qty: 16 3RF omeprazole 40 mg capsule,delayed release(DR/EC) 40 mg PO BID Qty: 180 3RF Fasenra 30 mg/mL syringe 30 mg subcut Q4W Nucala 100 mg/mL auto-injector 100 mg subcut .[id number] trazodone 100 mg tablet 200 mg PO QHS zolpidem [Ambien] 10 mg tablet 10 mg PO QHS PRN Combivent Respimat 4 GM mist 2 puff Inhalation PRN Spiriva Respimat 4 GM mist 2 puff Inhalation Q12H PRN montelukast [Singulair] 10 MG tablet 10 mg PO DAILY Qty: 90 budesonide-formoterol [Symbicort] 10.2 GM HFA aerosol inhaler 2 puff Inhalation BID Qty: 3 4RF Rx Instructions: please send patient home with her inpatient inhaler. Use with spacer ipratropium-albuterol [DuoNeb] 0.5 mg-3 mg(2.5 mg base)/3 mL solution for nebulization 3 ml Inhalation Q6H PRN Qty: 180 3RF gabapentin 300 mg capsule 300 mg PO TID Qty: 90 11RF Rx Instructions: per [facility] loratadine [Claritin] 10 mg tablet 10 mg PO DAILY Qty: 90 3RF cholecalciferol (vitamin D3) 25 mcg (1,000 unit) tablet 1,000 unit PO DAILY Qty: 90 3RF mupirocin 2 % ointment 1 applic topical TID Qty: 15 0RF Rx Instructions: Apply to inside front of nose with fingertip gently acetaminophen [Tylenol] 325 mg tablet 1,000 mg PO TID PRN promethazine 25 mg tablet 25 mg PO TID PRNQty: 10 0RF levothyroxine 50 mcg tablet 50 mcg PO DAILY Patient Comments: TAKE ONE TABLET BY MOUTH ONCE DAILY clonazepam 1 mg tablet 1 mg PO TID Patient Comments: TAKE 1 TABLET BY MOUTH THREE TIMES DAILY dextroamphetamine-amphetamine [Adderall] 20 mg tablet 20 mg PO TID Discharge Instructions Instructions: Stroke Additional Instructions: At this time you have opted to leave AGAINST MEDICAL ADVICE despite explanations and encouragement to stay. Please understand that your situation is very serious and you could have severe disability up to and including . Please follow-up with neurology and neurosurgery at the stroke center including [facility] or [facility] or return here if you get any worse. Follow up with primary care provider in 3-5 days. Return to ED sooner if any worsening or concerns. Referrals: [facility] [Outside] [facility] [Outside] - 1 day Darryl Medina MD [Primary Care Provider] - 3 days
[2023-10-29] MEDS: clonazePAM 0.5 MG TAB PO (18:21)
[2023-10-29] MEDS: Gabapentin 300 MG CAP (18:21)
[2023-10-29] MEDS: clonazePAM 0.5 MG TAB (18:21)
--- NOTE | 2023-10-30 09:45 | NUR.NOTE ---
Access chart to determine if a referral was done to [facility]. Per Dr. Joseph will put one in. Nursing Note:
--- NOTE | 2023-10-30 10:00 | NUR.NOTE ---
Patient waiting for transfer to [facility] for stroke yesterday, then left AMA while waiting. She called this morning stating that she called [facility] for a follow up appt with Neurology and that they did not have a referral. Per Dr. Joseph I did put in a referral. While talking with patient she stated that she has been vomiting this morning and wanted to know if it was normal, something new, etc? Consulted with Kristy Pearl, academic affairs vice president and told the patient that we are unable to evaluate if she is getting worse or not. She needs to return for evaluation to determine this. She stated she understood and hung up. Nursing Note:
[2023-10-30 11:08] LABS: Lyme Ab w Rflx to Lyme Confirm Negative (Negative)
[2023-11-01 00:36] LABS: Anaplasma phagocytophilum Negative (Negative); B. miyamotoi PCR Negative (Negative); Babesia divergens/MO-1 Negative (Negative); Babesia duncani Negative (Negative); Babesia microti Negative (Negative); Ehrlichia chaffeensis Negative (Negative); Ehrlichia ewingii/canis Negative (Negative); Ehrlichia muris eauclairensis Negative (Negative)
== END 2023-10-29 19:38 | disposition left against medical advice (07) ==
PROVIDERS: Physician Assistant; Emergency Provider Registered Nurse Emergency; PCP Family Medicine
DX: I63.541 Cerebral infarction due to unspecified occlusion or stenosis of right cerebellar artery (principal); Z53.29 Procedure and treatment not carried out because of patient's decision for other reasons
CPT/HCPCS: 00123; 70544; 70553; 80053; 80307; 85652; 87040; 87798; 93005; 70450; 72156; 80320; 83605; 83735; 84439; 84443; 85025; 86140; 86618; 93010

== ENCOUNTER 2023-11-18 12:47 | Outpatient (REF) | payer MEDICARE, MEDICAID, SELFPAY ==
[2023-11-18 15:17] LABS: Calculated LDL 91 mg/dL (<100); Cholesterol 178 mg/dL (<200); HDL Cholesterol 48 mg/dL (40-60); Triglyceride 196 mg/dL (<150)
== END 2023-11-18 12:48 | disposition home or self-care (01) ==
LOC: NCHCN 12:47
PROVIDERS: PCP Family Medicine; Visit Provider Family Medicine
DX: I63.9 Cerebral infarction, unspecified (principal)
CPT/HCPCS: 80061

== ENCOUNTER 2023-11-26 02:13 | Outpatient (CLI) | payer MEDICARE, MEDICAID, SELFPAY ==
--- NOTE | 2023-11-26 | DI.US_ITS ---
Exam(s) US CAROTID EXAM: US CAROTID CLINICAL HISTORY: CEREBRAL INFARCTION I63.9. TECHNIQUE: Ultrasound carotids performed using grayscale, color-flow, and spectral Doppler imaging. COMPARISON: No exams were available for comparison FINDINGS: RIGHT CAROTID ARTERY: Plaque: None. Velocity elevation: None. LEFT CAROTID ARTERY: Plaque: None. Velocity elevation: None. VERTEBRAL ARTERIES: Antegrade flow. Measurements: R Bulb: 65.7cm/s PS / 18.7cm/s ED R CCA: 71.9cm/s PS / 25.9cm/s ED R ECA: 66.7cm/s PS / 12.8cm/s ED R ICA Prox: 65.7cm/s PS / 25.3cm/s ED R ICA Mid: 78.5cm/s PS / 38.1cm/s ED R ICA Distal: 66.3cm/s PS /34.4cm/s ED R Vert: 40.1cm/s PS / 13.9cm/s ED R SVR: 1.1 R DVR: 1.5 L Bulb: 64.7cm/s PS / 13.1cm/s ED L CCA: 83.9cm/s PS / 28.5cm/s ED L ECA: 77.6cm/s PS / 11.8cm/s ED L ICA Prox: 64.7cm/s PS / 31.8cm/s ED L ICA Mid: 67.5cm/s PS / 31.8cm/s ED L ICA Distal: 45cm/s PS / 17.8cm/s ED L Vert: 49cm/s PS / 22cm/s ED L SVR: 0.8 L DVR: 1.1 IMPRESSION: No evidence for hemodynamically significant carotid stenosis. Criteria for Carotid Stenosis: Normal: ICA PSV <125 cm/s no plaque or intimal thickening is visible. <50% stenosis: ICA PSV <125 cm/s and plaque or intimal thickening is visible. 50-69% stenosis: ICA PSV is 125-250 cm/s and plaque is visible. >70% stenosis to near occlusion: ICA PSV >250 cm/s with visible plaque and luminal narrowing. DATA REPOSITORY:
--- NOTE | 2023-11-26 | DI.US_ITS ---
Exam(s) US LOWER EXTREMITY VENOUS LT EXAM: US LOWER EXTREMITY VENOUS LT CLINICAL HISTORY: PAIN LEFT LOWER LEG M79.662 TECHNIQUE: Left lower extremity venous ultrasound performed using grayscale, color-flow, and spectra l Doppler analysis. COMPARISON: No exams were available for comparison FINDINGS: The left common femoral, femoral and popliteal veins demonstrate normal compressibility, augmentation , and color Doppler. The posterior tibial and peroneal veins are patent. The saphenofemoral junction is unremarkable. There is no evidence of a Villaseñor cyst. The soft tissues are unremarkable. IMPRESSION: No evidence of a left lower extremity DVT. DATA REPOSITORY:
== END 2023-11-26 02:33 ==
LOC: DI 02:13
PROVIDERS: PCP Family Medicine; Visit Provider Family Medicine
DX: I63.9 Cerebral infarction, unspecified (principal); M79.662 Pain in left lower leg
CPT/HCPCS: 93880; 93971

== ENCOUNTER 2024-01-16 12:48 | Emergency (ER) | payer MEDICARE, MEDICAID, SELFPAY ==
[2024-01-16 13:01] VITALS: BP 124/71; PULSE 109; RESP 16; TEMP 36.5; O2SAT 95
--- NOTE | 2024-01-16 13:15 | DI.US_ITS ---
Exam(s) US LOWER EXTREMITY VENOUS LT EXAM: US LOWER EXTREMITY VENOUS LT CLINICAL HISTORY: LLE swelling, pain. TECHNIQUE: Lower extremity venous ultrasound performed using grayscale, color-flow, and spectral Do ppler analysis. COMPARISON: No exams were available for comparison FINDINGS: The common femoral, femoral and popliteal veins demonstrate normal compressibility, augmentation, and color Doppler. The posterior tibial and peroneal veins are patent. No saphenous vein thrombosis or other superficial venous thrombosis is seen. No hematoma or Villaseñor's cyst is seen. IMPRESSION: Negative lower extremity ultrasound. No evidence of DVT. DATA REPOSITORY:
[2024-01-16 13:24] VITALS: RESP 15
[2024-01-16 13:26] VITALS: BP 124/71; PULSE 109; RESP 15; TEMP 36.5; O2SAT 95
[2024-01-16 13:27] VITALS: RESP 15
--- NOTE | 2024-01-16 13:41 | W.ED.GENAD ---
Discharge Plan Disposition Patient Disposition: Home Condition: Good Discharge Details Clinical Impression: Left leg pain Primary Care Provider: Darryl Medina ED Provider: Addie Hansen Home Meds and New Rx's Prescriptions: Continued prednisone 10 mg tablet 10 mg PO DAILY fluticasone propionate 50 mcg/actuation spray,suspension 2 spray NS BID PRN (Reason: allergy symptoms) Qty: 16 3RF omeprazole 40 mg capsule,delayed release(DR/EC) 40 mg PO BID Qty: 180 3RF Nucala 100 mg/mL auto-injector 100 mg subcut .[id number] trazodone 100 mg tablet 200 mg PO QHS zolpidem [Ambien] 10 mg tablet 10 mg PO QHS PRN aspirin 81 mg tablet,delayed release (DR/EC) 81 mg PO DAILY clonazepam [Klonopin] 1 mg tablet 1 mg PO TID thc 1 inh inhalation .mult. x daily Rx Instructions: has medical card Combivent Respimat 4 GM mist 2 puff Inhalation PRN Spiriva Respimat 4 GM mist 2 puff Inhalation Q12H PRN montelukast [Singulair] 10 MG tablet 10 mg PO DAILY Qty: 90 budesonide-formoterol [Symbicort] 10.2 GM HFA aerosol inhaler 2 puff Inhalation BID Qty: 3 4RF Rx Instructions: please send patient home with her inpatient inhaler. Use with spacer ipratropium-albuterol [DuoNeb] 0.5 mg-3 mg(2.5 mg base)/3 mL solution for nebulization 3 ml Inhalation Q6H PRN Qty: 180 3RF gabapentin 300 mg capsule 300 mg PO TID Qty: 90 11RF Rx Instructions: per [facility] loratadine [Claritin] 10 mg tablet 10 mg PO DAILY Qty: 90 3RF cholecalciferol (vitamin D3) 25 mcg (1,000 unit) tablet 1,000 unit PO DAILY Qty: 90 3RF acetaminophen [Tylenol] 325 mg tablet 1,000 mg PO TID PRN promethazine 25 mg tablet 25 mg PO TID PRNQty: 10 0RF clonazepam 1 mg tablet 0.5 mg PO TID Patient Comments: TAKE 1 TABLET BY MOUTH THREE TIMES DAILY levothyroxine 50 mcg tablet 25 mcg PO DAILY Patient Comments: TAKE ONE TABLET BY MOUTH ONCE DAILY dextroamphetamine-amphetamine [Adderall] 20 mg tablet 20 mg PO TID Discharge Instructions Instructions: Leg Pain (ED) Additional Instructions: Ultrasound was negative for blood clot today. This may be associated with your stroke or previous hip infection. Please continue to elevate the extremity. Please continue with the thigh-high compression hose to help prevent further swelling from occurring. Follow-up with your primary care in the next 1 to 2 weeks for reevaluation. Please continue with physical therapy and exercises recommended by them. Please also continue to work with neurology at [facility]. If you develop fever/chills, increased pain or the new/worsening symptom please seek care urgently once again. Referrals: Darryl Medina MD [Primary Care Provider] - Discharge Data Discharge Date/Time-TO BE ENTERED AT DEPARTURE: 01/16/24 14:33 HPI General Date/Time Provider Initiated Documentation: 01/16/24 13:02. Limitations to Documentation: no limitations. Information obtained by: patient, RN notes reviewed and old records reviewed. History of Present Illness 33 year old F presents to the emergency department with the chief complaint of left leg swelling and discomfort, described as severe, Quality is described as stabbing, and is localized to the left and lower extremity. Patient reports no radiation. Patient started experiencing this month(s) and it has been constant. No relieving factors improve symptom(s), No exacerbating factors reported . Patient notes no other symptoms.. Patient did receive the following treatments prior to arrival, other (physical therapy) Related Data Home Medications ?Medication ?Instructions ?Recorded ?Confirmed ipratropium 20 mcg-albuterol 100 2 puff inhalation PRN 06/20/16 01/16/24 mcg/actuation mist for inhalation (Combivent Respimat) tiotropium bromide 1.25 2 puff inhalation Q12H PRN 06/20/16 01/16/24 mcg/actuation mist for inhalation (Spiriva Respimat) montelukast 10 mg tablet 10 mg PO DAILY #90 tab-caps 10/02/16 01/16/24 (Singulair) budesonide-formoterol HFA 160 2 puff inhalation BID ##3 03/19/17 01/16/24 mcg-4.5 mcg/actuation aerosol inhaler (Symbicort) ipratropium 0.5 mg-albuterol 3 mg 3 ml inhalation Q6H PRN #180 mL 10/23/17 01/16/24 (2.5 mg base)/3 mL nebulization soln (DuoNeb) prednisone 10 mg tablet 10 mg PO DAILY 02/02/19 01/16/24 trazodone 100 mg tablet 200 mg PO QHS 10/11/20 01/16/24 zolpidem 10 mg tablet (Ambien) 10 mg PO QHS PRN 11/28/20 01/16/24 gabapentin 300 mg capsule 300 mg PO TID #90 caps 12/05/20 01/16/24 loratadine 10 mg tablet (Claritin) 10 mg PO DAILY #90 tabs 05/11/21 01/16/24 cholecalciferol (vitamin D3) 25 1,000 unit PO DAILY #90 tab-caps 11/09/21 01/16/24 mcg (1,000 unit) tablet fluticasone propionate 50 2 spray NS BID PRN allergy 11/22/21 01/16/24 mcg/actuation nasal symptoms #16 grams spray,suspension omeprazole 40 mg capsule,delayed 40 mg PO BID #180 caps 11/22/21 01/16/24 release acetaminophen 325 mg tablet 1,000 mg PO TID PRN Pain, fever 12/07/22 01/16/24 (Tylenol) promethazine 25 mg tablet 25 mg PO TID PRN #10 tabs 12/07/22 01/16/24 dextroamphetamine-amphetamine 20 20 mg PO TID 06/11/23 01/16/24 mg tablet (Adderall) mepolizumab 100 mg/mL subcutaneous 100 mg subcut .[id number] 06/11/23 01/16/24 auto-injector (Nucala) aspirin 81 mg tablet,delayed 81 mg PO DAILY 11/13/23 01/16/24 release clonazepam 1 mg tablet 0.5 mg PO TID 11/13/23 01/16/24 clonazepam 1 mg tablet (Klonopin) 1 mg PO TID 11/13/23 01/16/24 levothyroxine 50 mcg tablet 25 mcg PO DAILY 11/13/23 01/16/24 thc 1 inh inhalation .mult. x daily 11/13/23 01/16/24 Previous Rx's ?Medication ?Instructions ?Recorded budesonide-formoterol HFA 160 2 puff inhalation BID ##3 03/19/17 mcg-4.5 mcg/actuation aerosol inhaler (Symbicort) ipratropium 0.5 mg-albuterol 3 mg 3 ml inhalation Q6H PRN #180 mL 10/23/17 (2.5 mg base)/3 mL nebulization soln (DuoNeb) gabapentin 300 mg capsule 300 mg PO TID #90 caps 12/05/20 loratadine 10 mg tablet (Claritin) 10 mg PO DAILY #90 tabs 05/11/21 cholecalciferol (vitamin D3) 25 1,000 unit PO DAILY #90 tab-caps 11/09/21 mcg (1,000 unit) tablet fluticasone propionate 50 2 spray NS BID PRN allergy 11/22/21 mcg/actuation nasal symptoms #16 grams spray,suspension omeprazole 40 mg capsule,delayed 40 mg PO BID #180 caps 11/22/21 release promethazine 25 mg tablet 25 mg PO TID PRN #10 tabs 12/07/22 Allergies Allergy/AdvReac Type Severity Reaction Status Date / Time ibuprofen (From Advil) Allergy Mild ADVIL ONLY Verified 01/16/24 13:03 SKIN RASH amoxicillin Allergy Swelling/Ed Verified 01/16/24 13:03 home diphenhydramine Allergy Hives Verified 01/16/24 13:03 erythromycin base Allergy SKIN RASH Verified 01/16/24 13:03 metronidazole (From Flagyl) Allergy SKIN RASH Verified 01/16/24 13:03 Metronidazole HCl (From Allergy SKIN RASH Verified 01/16/24 13:03 Flagyl) penicillin V (Penicillin V) Allergy Wheezing Verified 01/16/24 13:03 Sulfa (Sulfonamide Allergy Hives Verified 01/16/24 13:03 Antibiotics) General Stated Complaint: GenMedical BART: 3 Review of Systems Constitutional Constitutional: Reports as per HPI, Denies chills and Denies fever(s) ENT Ears, Nose, Mouth, and Throat: Denies dizziness Cardiovascular Cardiovascular: Reports as per HPI and Denies dyspnea Respiratory Respiratory: Reports as per HPI, Denies chest congestion, Denies cough, Denies pain on inspiration, Denies pain with cough and Denies dyspnea Gastrointestinal Gastrointestinal: Reports as per HPI, Denies abdominal pain, Denies diarrhea, Denies nausea and Denies vomiting Musculoskeletal Musculoskeletal: Reports as per HPI and Denies back pain Integumentary/Breasts Skin/Breast: Reports as per HPI and Denies rash Neurologic Neurologic: Reports as per HPI and Denies dizziness Exam Const General: cooperative, healthy appearing, comfortable, no acute distress and well developed Nutritional Appearance: average body habitus and well nourished Orientation: alert, awake and oriented x3 Resp Effort & Inspection: normal respiratory effort, able to speak in complete sentences and no respiratory distress Auscultation: clear to auscultation bilaterally, no rales, no rhonchi and no wheezes Cardio Rate: regular rate Rhythm: regular rhythm Heart Sounds: S1 normal and S2 normal Skin General skin exam: no rashes or lesions noted Trauma: no lacerations or abrasions Neuro General: patient alert, patient awake and patient oriented x3 Cognition: normal cognition Speech: speech normal Gait: normal gait Extrem General: normal to inspection, capillary refill normal, no pedal edema, normal gait and calf tenderness on the left Course Vital Signs Vital signs: Vital Signs Temperature 36.5 C 01/16/24 13:01 Pulse 109 H 01/16/24 13:01 Respiratory Rate 16 01/16/24 13:01 Blood Pressure 124/71 01/16/24 13:01 Pulse Oximetry 95 01/16/24 13:01 Temperature 36.5 C 01/16/24 13:26 Temperature Source Oral 01/16/24 13:26 Pulse 109 H 01/16/24 13:26 Respiratory Rate 15 01/16/24 13:27 Respiratory Effort Non-Labored 01/16/24 13:30 Respiratory Depth Normal 01/16/24 13:27 Respiratory Pattern Normal 01/16/24 13:27 Blood Pressure 124/71 01/16/24 13:26 Blood Pressure Position Sitting 01/16/24 13:26 Pulse Oximetry 95 01/16/24 13:26 Oxygen Delivery Method Room Air 01/16/24 13:26 Oxygen Flow Rate 0 01/16/24 13:26 Pain Level 10 01/16/24 13:26 Medical Decision Making Patient is a 33 year old female with past medical history significant for CVA, asthma, GERD, polysubstance use disorder, presenting diverticuli of the left lower extremity pain. 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 Patient left AGAINST MEDICAL ADVICE several times, has been seen by primary care with states she has not yet been seen by neurology. She reports that the pain in the left leg has been consistent since her initial CVA symptoms in October. She reports that her physical therapist has been evaluating her, measuring her And has noted that left calf is larger than the right. As the pain has continued to increase, she was concerned potential DVT and was advised to be seen in the emergency department. She reports that she has had some shortness of breath but unclear if this is chronic, patient does see pulmonology regularly, is an active smoker. States that when the symptoms worsen her anxiety can increase. Patient is agreeable to a ultrasound today but refuses to have any type of blood draw or needlestick. On exam, patient appears nontoxic. She is confrontational with nursing staff fairly immediately but she and I had a rather good rapport without any issues. She is refusing a large amount of evaluation and is quite sad on what she feels like is appropriate care and management of her current pain. Did examine her left lower extremity and will nursing staff did note a sub-1 cm size discrepancy with the left being slightly larger than the right, this is difficult to note objectively on exam. Patient feels like her calf is quite tight but it feels the same as the contralateral side at this point I do not appreciate any significant swelling or pitting edema. However, patient does endorse severe tenderness simply everywhere in the leg. She does have intact pulses. No cyanosis. With patient's history of CVA, unclear etiology, patient having anticoagulated, did consider a DVT and will obtain ultrasound. Patient is in agreement with this. Of note, I did review the patient's recent PT notes and when they initially started seeing her in November, she was not having any calf tenderness. I also raised the concern that the patient had multiple excuses for why she is not doing certain things that are fairly illogical. This does seem to be consistent with him seeing today with this patient as she continues to say that none of the care teams are giving her adequate care yet she also is refusing to have any of the treatment recommended. DVT US negative. Discussed these findings with the patient. She reports she cannot take ibuprofen as she is allergic to all NSAIDs. Does not find that Tylenol is working well for her. She has been working physical therapy. Will add a thigh-high compression hose. Nursing staff did measure her and get her appropriate hose for the leg. Encouraged rest, ice, elevation. Encouraged to continue with the exercises from physical therapy and discuss this further with primary care and neurology as well. Return precautions were discussed. All questions and concerns were addressed and she is agreement this plan. Quality:[facility] Health Related Social Needs: No Data to Display PFSH All Active Problems (Updated 01/16/24 @ 14:12 by JESSICA Solorzano) Left leg pain (Acute) Nasal vestibulitis (Acute) Dry skin (Acute) Elevated white blood cell count (Acute) Bruising (Acute) Reducible right inguinal hernia (Acute) Keratosis obturans of left external ear canal (Acute) Thrush (Acute) COVID-19 (Acute ~03/08/21) Chronic rhinitis (Acute) Chronic sinusitis (Acute) Nasal polyp (Acute) Sternal fracture (Acute) Opiate overdose (Acute) Abnormal findings on diagnostic imaging of lung (Acute) Epistaxis (Acute) Hypothyroidism (Chronic) Chronic pain (Chronic) Left-sided thoracic back pain (Acute) Pain in left hip (Acute) Dental caries (Acute) Abscess of arm, right (Acute) Abscess of arm, right (Acute) Accidental overdose (Acute) Opioid abuse (Acute) Asthma exacerbation (Acute) Breath shortness (Acute) Encounter for gynecological examination (Acute) Dental abscess (Acute) Sinusitis (Acute) Umbilical pain (Acute) Postop check (Acute) Asthma (Chronic) a. Poor control since moving from [place] in 2012. b. Smokes less than 1/2 pack a day times last three months. c. Continuous allergen exposures to dogs and cats at home. d. PFT's 10/18/2013 showed FEV-1 of 1.87, 65% of predicted, FEV-1/FVC 62%, 73% of predicted, consistent with modreatley severe obstructive pulmonary diseas. Bronchodilator response was good. There was no restrictive component. Diffusion capacity was okay. e. High resolution chest CT done 11/26/2013 showed a grown-glass appearance in the lower lobes, ? hypersensitivity pneumonitis Amenorrhea (Chronic) a. LMP 2 1/2 years ago. b. S/P miscarriage in 2007. Pelvic pain (Chronic) S/P gallbladder ultrasound which was negative. S/P pelvic ultrasound which was negative. S/P abdominal pelvic CT which was negative. Renal insufficiency (Acute 12/09/13) a. bump in creatinine from 1.0 up to 2.9 Papanicolaou smear of vagina with atypical squamous cells of undetermined significance (ASC-US) (Acute 07/10/10) History of surgical procedure (Acute) History of lung biopsy (Acute) Cyst of ovary (Acute) Sunburn of second degree (Acute) Pruritus (Acute) Pain, dental (Acute) Umbilical pain (Acute) Pre-op evaluation (Acute) Asthma (Chronic) (Acute) History of abnormal cervical Pap smear (Chronic) 2013. Colpo directed [id number]. No follow-up Pap/HPV available in EMR. 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 b. NO IV DRUG USE IN FIVE MONTHS. c. Recently enrolled in the [facility] Suboxone program, recently transferred from [place] to [facility] and is at a steady state having gone through induction. d. States surveillance testing showed buprenorphine and no other opiates this past (11/25/2013). e. Reports surveillance testing negative for hepatitis and HIV. 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 Patient was unaware she was had workup for abdominal pain and CT of abdomen showed a viable . She wishes to continue the . Sinusitis Surgical History History of tooth extraction 15 removed Oct 2020, 8 removed Jan 2021 History of incision and drainage L hip H/O hernia repair x2 History of Endometrial Biopsy 10/06/13; C-ROSALINA II Family History Father Hyperlipidemia Social History Smoking/Tobacco Use Status: Never Smoking risk assessment performed?: Yes Alcohol Intake: current Alcohol Intake frequency: holidays/special occasions only Drug use: Daily Substance use type: marijuana and IV drugs Counseling provided: treatment program and other Details: Subutex through [facility] Details: IV drug use stopped at 22 year olds. Caregiver/Support person: No Household members: family and children Housing: apartment Do you need help understanding health information?: Rarely current occupation: Lives at home with her mother. Does crafts to occupy her time Pets and animals: Yes Pets and animals: cat(s) Sexually active: Yes (One episode of sexual intercourse approximately 2017) Do you think of yourself as: straight/heterosexual Current gender identity: female How often do you talk on the phone with friends or family?: decline to answer How often do you get together with friends or relatives?: decline to answer How often do you attend cheondoism or episcopal services?: decline to answer Do you belong to any clubs or organized social groups?: no Panel score (0-1 are the most socially isolated patients): 0 What type of physical activity do you participate in: walking Loraine/Sabianist: None Do you feel safe at home: Yes Do you feel safe in your relationship?: Yes Female Reproductive History Menstrual control method: none History History 2 Para Hx # Term Pregnancies 0 Multiple births Hx # Pregnancies Ectopic pregnancies AB induced Hx Number of Living Children AB spontaneous 1 Past Pregnancies Del. Date GA/Weeks # Preg Succ Route Wgt Sex Labor Lgth Anesthesia Location Prov Complic Unknown Delivery Date: Last Updated by: Mildred Romero LPN Patient transferred care to [facility] on 05/11/2018
[2024-01-16 14:15] VITALS: PULSE 100; RESP 16; O2SAT 100
== END 2024-01-16 14:33 | disposition home or self-care (01) ==
LOC: ER 14:18
PROVIDERS: Emergency Provider Physician Assistant; PCP Family Medicine
DX: M79.605 Pain in left leg; R06.02 Shortness of breath; F19.90 Other psychoactive substance use, unspecified, uncomplicated; R22.42 Localized swelling, mass and lump, left lower limb
CPT/HCPCS: 99284; 93971; 99283

== ENCOUNTER 2024-04-07 09:58 | Emergency (ER) | payer MEDICARE, MEDICAID, SELFPAY ==
[2024-04-07 10:02] VITALS: BP 122/83; PULSE 94; RESP 16; TEMP 36.8; O2SAT 93
--- NOTE | 2024-04-07 10:30 | DI.CT_ITS ---
Exam(s) CT HEAD WO EXAM: CT HEAD WO CLINICAL HISTORY: headache after fall. TECHNIQUE: Imaging Protocol: Axial computed tomography images with coronal and sagittal reformatted images were created and reviewed COMPARISON: CT CT HEAD - STROKE PROTOCOL from 10/29/2023 FINDINGS: Ventricles and Extra axial spaces: Normal in size and morphology for the patient's age. Hemorrhage: None. Cerebral parenchyma: Old right occipital infarct again noted. No evidence of acute infarct or mass. Midline shift: None. Brainstem/Cerebellum: Normal. Calvarium: Normal. Visualized Paranasal sinuses:Mucosal thickening of the ethmoid sinuses. Mastoids: Clear. Soft Tissues: Unremarkable. ORBITS: Unremarkable. PITUITARY: Not enlarged. IMPRESSION: Old right occipital infarct. No acute intracranial process. RADIATION DOSE DELIVERED: 765.77mGy.cm Total DLP DATA REPOSITORY: All CT scans at this facility are submitted to the National Radiology Data Registry (NRDR) Dose Index Registry (DIR) with the [employer] (ACR). RADIATION OPTIMIZATION: All CT scans at this facility use at least one of these dose optimization te chniques: automated exposure control; mA and/or kV adjustment per patient size (includes targeted exa ms where dose is matched to clinical indication); or iterative reconstruction.
--- NOTE | 2024-04-07 10:30 | DI.CT_ITS ---
Exam(s) CT CHEST WO EXAM: CT CHEST WO CLINICAL HISTORY: sternal pain after fall. TECHNIQUE: Imaging protocol: Axial computed tomography images were obtained and coronal and sagittal reformatted images were created and reviewed. Computer aided detection (CAD) was utilized. CONTRAST MATERIAL: Noncontrast COMPARISON: CR XR CHEST 2V PA LATERAL from 07/16/[address] CHEST PE ABD PELVIS W from 12/07/2022 FINDINGS: Pulmonary parenchyma: Chronic bilateral alveolar infiltrates are again noted, similar to prior. Sutu re material noted at left upper lobe. No consolidation. No suspicious nodules. Interstitial changes: None. Emphysema: None. Tracheobronchial tree: No mucous plugging. No bronchiectasis . Pleura: No effusion or pneumothorax. Heart: The heart is mildly dilated. The coronary arteries show mild calcifications. Aorta: Thoracic aorta non-dilated. Mild atherosclerotic changes. Lymph nodes: No enlarged lymph nodes. Bones: The right lateral rib fracture. No acute fractures are identified. The sternum appears int act. No evidence of compression fracture. Upper abdomen: Unremarkable. Soft tissues: Unremarkable. IMPRESSION: No acute abnormality. Chronic bilateral pulmonary infiltrates. RADIATION DOSE DELIVERED: 113.29mGy.cm Total DLP 113.29mGy.cm Total DLP DATA REPOSITORY: All CT scans at this facility are submitted to the National Radiology Data Registry (NRDR) Dose Index Registry (DIR) with the [employer] (ACR). RADIATION OPTIMIZATION: All CT scans at this facility use at least one of these dose optimization te chniques: automated exposure control; mA and/or kV adjustment per patient size (includes targeted exa ms where dose is matched to clinical indication); or iterative reconstruction.
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
[2024-04-07] MEDS: Diclofenac 1% Gel 100 GM TUBE TP (12:02)
== END 2024-04-07 12:04 | disposition home or self-care (01) ==
PROVIDERS: Emergency Provider Nurse Practitioner Family; PCP Family Medicine
DX: R07.89 Other chest pain (principal); S09.8XXA Other specified injuries of head, initial encounter; E03.9 Hypothyroidism, unspecified; W18.39XA Other fall on same level, initial encounter; Y93.89 Activity, other specified; Y92.018 Other place in single-family (private) house as the place of occurrence of the external cause
CPT/HCPCS: 71250; 99284; 70450; 99283

== ENCOUNTER 2024-11-01 07:33 | Outpatient (CLI) | payer MEDICARE, MEDICAID, SELFPAY ==
--- NOTE | 2024-11-01 | DI.MRI_ITS ---
Exam(s) MR BRAIN WO EXAM: MR BRAIN WO CLINICAL HISTORY: TIA SYMPTOMS,g45.9,? ANY CHANGE FROM PREVIOUS EXAM SHOWING AREAS OF STROKE TECHNIQUE: Multiplanar multisequence MRI of the brain was performed. COMPARISON: MR MR BRAIN WO/W from 10/29/[address] HEAD WO from 04/07/2024 FINDINGS: VENTRICLES AND EXTRA AXIAL SPACES: Normal in size and morphology for the patient's age. MIDLINE SHIFT: None. CEREBRAL PARENCHYMA: Old right occipital infarct is again noted, similar appearance to recent CT. No focus of restricted diffusion to suggest acute infarct. No space-occupying lesion identified. BRAINSTEM/CEREBELLUM: Normal. VISUALIZED PARANASAL SINUSES: Mucosal thickening of the maxillary and ethmoid sinuses. MASTOIDS:Clear. Vasculature: Normal flow void. PITUITARY GLAND: Unremarkable. ORBITS: Unremarkable. IMPRESSION: Stable appearance of right occipital infarct. No new abnormalities. DATA REPOSITORY:
== END 2024-11-01 07:53 ==
LOC: DI 07:33
PROVIDERS: PCP Family Medicine; Visit Provider Family Medicine
DX: G45.9 Transient cerebral ischemic attack, unspecified (principal)
CPT/HCPCS: 70551

== ENCOUNTER 2024-11-26 05:08 | Outpatient (CLI) | payer MEDICARE, MEDICAID, SELFPAY ==
--- NOTE | 2024-11-26 | DI.US_ITS ---
APPROVED REPORT EXAM: Comprehensive 2D, Doppler, and color-flow Echocardiogram Patient Location: Out-Patient Tier Lift Operator: Justin Gleason RDCS (AE) Indications: CVA Echo Enhancing Agent Indication: Rule out Shunt Agent(s) / Amount(s) Used: Agitated Saline 30.0 cc Comments: Contrast study was performed with 3 IV injections of 10ccs of agitated normal saline, at rest, with cough and post valsalva maneuver. Negative contrast study for shunt flow. Other Information Study Quality: Adequate Conclusion Normal left ventricular wall thickness and chamber size. Ejection fraction is 55 to 60%. Wall motion is normal Normal right ventricular size and function Both atria are normal in size No intracardiac shunting is identified with injection of agitated saline There is no structural or hemodynamically significant valvular disease Wall motion Left Ventricle The left ventricle is normal size. The left ventricular systolic function is normal. The left ventricular ejection fraction is within the normal range. There is normal left ventricular wall thickness. There is normal LV segmental wall motion. There is no ventricular septal defect visualized. LVEF is 55-60% Right Ventricle The right ventricle is normal size. The right ventricular systolic function is normal. Atria The left atrium size is normal. The right atrium size is normal. The interatrial septum is intact with no evidence for an atrial septal defect. Aortic Valve The aortic valve is normal in structure. Aortic valve is trileaflet. There is no aortic valvular stenosis. No aortic regurgitation is present. Mitral Valve The mitral valve is normal in structure. No evidence of mitral valve stenosis. Trace mitral regurgitation. Tricuspid Valve The tricuspid valve is normal in structure. There is no tricuspid valve stenosis. Trace tricuspid regurgitation. Pulmonic Valve The pulmonary valve is normal in structure. There is no pulmonic valvular stenosis. There is no pulmonic valvular regurgitation. Great Vessels The aortic root is normal in size. Ascending aorta is not well visualized. Aortic arch is not well visualized. IVC is normal in size and collapses >50% with inspiration. Pericardium There is no pericardial effusion. 2D Dimensions IVSD d PLAX 0.60 cm F: 0.6-1.0 Ao Root d 2.56 cm F: 2.7 - 3.3 LVPW d PLAX 0.56 cm F: 0.6 - 1.0 IVC Diam exp d SLAX 2.0 cm LVID d PLAX 4.48 cm F: 3.8 - 5.2 LVDs 3.17 cm F: 2.2 - 3.5 LV EF Teichholz 56.0 % FS 29.09 % LV EDV (Teich) 91.3 mL LV ESV (Teich) 40.1 mL Stroke Vol Index (Teich) 41.91 M-Mode TAPSE 2.68 cm (M/F) >1.7 Auto EF LV EDV A4C 94.4 mL LV EDV A2C 98.0 mL LV EDV BP 95.9 mL LV ESV A4C 44.2 mL LV ESV A2C 45.3 mL LV ESV BP 44.9 mL LVEF(%) A4C 53.2 % LVEF(%) A2C 53.8 % LVEF(%) BP 53.2 % LV SV A4C 50.2 ml LV SV A2C 52.7 ml LV SV BP 51.0 ml LV CO A4C 3.9 L/min LV CO A2C 4.4 L/min LV CO BP 4.1 L/min HR A4C 77.73 BPM HR A2C 83.15 BPM LV EDV Index (BP) LA Volume LA Length A4C 3.4 cm LA Length A2C 3.6 cm LA Area A4C s 6.85 cm2 LA Area A2C s 9.97 cm2 LA Vol A4C A-L 11.77 mL LA Vol A2C A-L 23.37 mL LA Vol Biplane A-L 17.1 mL LA Vol/BSA A4C A-L LA Vol/BSA A2C A-L LA Vol/BSA BP A-L 14.0 mL/m2 LA Vol A4C MOD 11.0 mL LA Vol A2C MOD 22.6 mL LA Vol BP MOD 16.2 mL RA Volume RA Area A4C 5.2 cm2 RA ESV A4C (A-L) 7.8mL RA Vol/BSA A4C A-L RA Length A4C 2.9 cm RA ESV A4C (MOD) 7.6mL LV Diastology MV E' medial 0.125 (>0.07 m/s) MV E Vmax 0.76 (0.4-1.3 m/s) MV E/E' MED 6.07 (<14) MV A Vmax 0.65 (0.4-1.3 m/s) MV E' lateral 0.113 (>0.1 m/s) E/A Ratio 1.2 MV E/E' LAT 6.72 (<14) MV E' Average 0.119 m/s MV E/E'(average) 6.38 Aortic Valve AoV Vmax 1.21 m/s LVOT Vmax 0.85 m/s AoV Peak Grad 5.9 mmHg LVOT Peak Grad 2.9 mmHg AoV Area (Vmax) 2.16 cm2 LVOT VTI 0.182 m AoV VTI 0.237 m LVOT Mean Grad 1.6 mmHg AoV Mean Jese. 0.81 m/s LVOT SV 56.15 mL AoV Mean Grad 3.0 mmHg LVOT Diam s 1.95 cm AoV Area (VTI) 2.37 cm2 AV Regurg Peak Gr. 5.88 mmHg Velocity Ratio 0.70 Mitral Valve MV DT 108 (160-240 msec)
== END 2024-11-26 05:28 ==
LOC: DI 05:08
PROVIDERS: PCP Family Medicine; Visit Provider Student in an Organized Health Care Education/Training Program
DX: I63.9 Cerebral infarction, unspecified (principal)
CPT/HCPCS: 93306

== ENCOUNTER → 2024-12-15 02:30 | Outpatient (CLI) | payer MEDICARE, MEDICAID, SELFPAY ==
--- NOTE | 2024-12-15 | DI.RAD_ITS ---
Exam(s) XR ACROMIO CLAVICULAR JOINTS EXAM: XR ACROMIO CLAVICULAR JOINTS CLINICAL HISTORY: AC JOINT ARTHROPATHY,LT,M19.019,PRIMARY OA. TECHNIQUE: 2D digital imaging was performed. COMPARISON: No exams were available for comparison FINDINGS: Two views (with and without weight bearing): No evidence of clavicle fractures. There are mild degenerative changes in the right AC joint. There is slight widening of the left AC joint when compared to the right side. The amount of widening is similar on the weight-bearing and nonweightbearing views. Both clavicles otherwise appear unremarkable as do the glenohumeral joints. IMPRESSION: Mild widening of the left AC joint when compared to the right side. However, this does not change between the weight-bearing and nonweightbearing views. DATA REPOSITORY: RADIATION DOSE DELIVERED:
== END ==
LOC: DI 02:30
PROVIDERS: PCP Family Medicine; Visit Provider Family Medicine
DX: M19.019 Primary osteoarthritis, unspecified shoulder (principal)
CPT/HCPCS: 73050